=== PATIENT | female | born 1950 | race Caucasian/White ===

== ENCOUNTER → 2021-08-25 13:19 | Outpatient (BNVA) | payer MEDICARE, MEDICAID, SELFPAY | PROVIDERS: PCP Internal Medicine Nephrology; Visit Provider Nurse Practitioner Family | DX: M25.511 Pain in right shoulder (principal); M25.512 Pain in left shoulder; M47.812 Spondylosis without myelopathy or radiculopathy, cervical region; M17.12 Unilateral primary osteoarthritis, left knee | CPT/HCPCS: 99202 ==

== ENCOUNTER → 2021-10-13 15:29 | Outpatient (BNVA) | payer MEDICARE, MEDICAID, SELFPAY | PROVIDERS: PCP Internal Medicine Nephrology; Visit Provider Nurse Practitioner Family | DX: M17.12 Unilateral primary osteoarthritis, left knee (principal); M25.511 Pain in right shoulder; M25.512 Pain in left shoulder; M47.812 Spondylosis without myelopathy or radiculopathy, cervical region | CPT/HCPCS: Q3014 ==

== ENCOUNTER 2022-01-19 06:27 | Outpatient (REF) | payer MEDICARE, MEDICAID, SELFPAY | END 2022-01-19 06:28 | disposition home or self-care (01) | LOC: HO.RADIR 06:27 | PROVIDERS: Visit Provider Anesthesiology | DX: Z13.89 Encounter for screening for other disorder (principal) ==

== ENCOUNTER 2022-03-30 06:23 | Outpatient (REF) | payer MEDICARE, MEDICAID, SELFPAY | END 2022-03-30 06:24 | disposition home or self-care (01) | LOC: HO.RADIR 06:23 | PROVIDERS: Visit Provider Anesthesiology | DX: Z13.89 Encounter for screening for other disorder (principal) | CPT/HCPCS: J3300 ==

== ENCOUNTER 2023-05-24 08:51 | Outpatient (RCR) | payer MEDICARE, MEDICAID, SELFPAY | END 2023-06-01 14:33 | disposition home or self-care (01) | LOC: HO.WCC 08:51 | PROVIDERS: PCP Internal Medicine; Visit Provider Physician Assistant | DX: S30.0XXD Contusion of lower back and pelvis, subsequent encounter (principal); S32.001D Stable burst fracture of unspecified lumbar vertebra, subsequent encounter for fracture with routine healing; E10.22 Type 1 diabetes mellitus with diabetic chronic kidney disease; I12.0 Hypertensive chronic kidney disease with stage 5 chronic kidney disease or end stage renal disease; N18.6 End stage renal disease; I25.2 Old myocardial infarction; Z99.2 Dependence on renal dialysis; X58.XXXD Exposure to other specified factors, subsequent encounter | CPT/HCPCS: 99213 ==

== ENCOUNTER 2023-12-01 13:55 | Outpatient (AMB) | payer MEDICARE, MEDICAID, SELFPAY ==
--- NOTE | 2023-12-01 14:27 | MHC.PC.OV ---
Intake Visit Reasons: [facility] Intake Note: New patient visit. Fell Tuesday and Tuesday of this week. Allergies bee venom protein (honey bee) Allergy (Severe, Verified 12/01/23 14:46) Anaphylaxis cephaloridine Allergy (Severe, Verified 12/01/23 14:46) dyspnea codeine Allergy (Severe, Verified 12/01/23 14:46) stops breathing Penicillins Allergy (Severe, Verified 12/01/23 14:46) dyspnea amlodipine [From Norvasc] Adverse Reaction (Severe, Verified 12/01/23 14:46) increased K+ hydrochlorothiazide Adverse Reaction (Severe, Verified 12/01/23 14:46) renal failure lisinopril Adverse Reaction (Severe, Verified 12/01/23 14:46) increased K+ polyethylene glycol Adverse Reaction (Severe, Verified 12/01/23 14:46) hives valsartan Adverse Reaction (Severe, Verified 12/01/23 14:46) renal failure polyethylene glycol 3350 [From Golytely] Adverse Reaction (Intermediate, Verified 12/01/23 14:46) Vomiting potassium chloride [From Golytely] Adverse Reaction (Intermediate, Verified 12/01/23 14:46) Vomiting sodium [From Golytely] Adverse Reaction (Intermediate, Verified 12/01/23 14:46) Vomiting sodium bicarbonate [From Golytely] Adverse Reaction (Intermediate, Verified 12/01/23 14:46) Vomiting sodium chloride [From Golytely] Adverse Reaction (Intermediate, Verified 12/01/23 14:46) Vomiting sodium sulfate [From Golytely] Adverse Reaction (Intermediate, Verified 12/01/23 14:46) Vomiting Sulfa (Sulfonamide Antibiotics) Adverse Reaction (Intermediate, Verified 12/01/23 14:46) n/v Medication List - Last Reconciled 12/01/23 by Carlee Turner MD allopurinol 100 mg PO DAILY 90 days apixaban (Eliquis) 5 mg PO BID atorvastatin 80 mg PO DAILY 90 days biotin mcg PO calcium acetate(phosphat bind) 667 mg PO TID ferric citrate 420 mg (2 x 210 mg iron) PO TID 30 days insulin glargine (Basaglar KwikPen U-100 Insulin) 25 units subcut BEDTIME levothyroxine 137 mcg PO DAILY 90 days linaclotide (Linzess) 145 mcg PO DAILY losartan 100 mg PO DAILY melatonin 15 mg PO metoprolol tartrate 25 mg PO DAILY multivitamin 1 tab PO DAILY nystatin (Nystop) topical oxycodone-acetaminophen 10-325 mg (Endocet) 1 tab PO Q4H PRN pen needle, diabetic (BD Ultra-Fine Mini Pen Needle) As directed pramipexole 0.25 mg PO TID 90 days pregabalin 25 mg PO TID torsemide mg PO Tobacco use date assessed: 12/01/23 Fall risk assessment: 2 + Falls in past year Last assessed Fall Risk: 12/01/23 Dental Screening Dental Screen Date: 12/01/23 Did you have a dental visit in the last 12 months?: Yes Did you have a dental problem in the last 6 months where you did not have access to dental care?: No Was dental information given to patient?: Patient has dentist HPI HPI Comments History of Present Illness Details The patient is a 73 year old female with past medical history of htn, hld, diabetes, hypothyroid, osteoarthritis, migraines, CKD on HD, uterine cancer, sinusitis presenting to reestablish care Diabetes: On basaglar 30-60 units at 10pm, novalag TID sliding scale. Neuropathy on lyrica 25mg TID, endocet Renal: ESRD on HD at [facility] MWF: on sevelamer, calcium acetate. Follows with Dr Millard CV: Follow with cardiology, Dr Rogers. On eliquis, atorvastatin, losartan, as well as nifedipine and torsemide on NON dialysis days. Neuro: Migraines, peripheral neuropathy, ataxia MSK: Chronic polyarthralgia. osteoarthritis. On endocet 10/325mg 1 tab q4h. Endocrine: on levothyroxine 137mcg daily [facility] Social History (Updated 12/01/23 @ 14:30 by France Mccall CMA) Housing: House Patient Tobacco Use Status: Never used Tobacco e-Cigarette/Vaping Use: Never Used Second Hand Smoke Exposure: No Use of substances other than those prescribed or required for medical reasons: Yes Substance Use Type: Marijuana service: No Current occupational status: retired Cognitive needs: No Hearing needs: No Vision needs: Yes (glasses ) Questionnaire PHQ-9 Over the last 2 weeks, how often have you been bothered by any of the following problems? 1. Little interest or pleasure in doing things: not at all 2. Feeling down, depressed, or hopeless: not at all 3. Trouble falling or staying asleep, or sleeping too much: nearly every day 4. Feeling tired or having little energy: more than half the days 5. Poor appetite or overeating: more than half the days 6. Feeling bad about yourself - or that you are a failure or have let yourself or your family down: not at all 7. Trouble concentrating on things, such as reading the newspaper or watching television: not at all 8. Moving or speaking so slowly that other people could have noticed. Or the opposite - being so fidgety or restless that you have been moving around a lot more than usual: not at all 9. Thoughts that you would be better off or of hurting yourself in some way: not at all Total score: 7 Depression Screening Interpretation: Positive Depression Screening Done: Yes 32176 - PHQ-9 Billing: Yes Source: Developed by Drs. Eagle Neil, Leticia Vásquez, Kwadwo Garcia and colleagues, with an educational antonietta from [employer]. Thrive Questionnaire Date Thrive assessed: 12/01/23 I am a: Patient What is your living situation today?: I have a steady place to live Within the past 12 months, did the food you bought not last and you didn't have the money to get more?: Never true Within the past 12 months, did you worry whether your food would run out before you got money to buy more?: Never true Do you have trouble paying for medicines?: No Do you have trouble getting transportation to medical appointments?: No Do you have trouble paying your heating and electricity bill?: No Do you have trouble taking care of your child, family member or friend?: No Do you have trouble with day-to-day activities such as bathing, preparing meals, shopping, managing finances, etc.?: No Are you currently unemployed and looking for a job?: No Are you interested in more education?: No Please select the resources that you would like help with: None Currently or been in a relationship where the following occur: no concerns reported THRIVE Score: 0 AUDIT C Alcohol Use Questionnaire (AUDIT-C) 1. How often do you have a drink containing alcohol?: Never 3. How often do you have six or more drinks on one occasion?: Never Total Score: 0 EDIN-7 AMB Questionnaire EDIN-7 Date EDIN - 7 assessed: 12/01/23 Feeling nervous, anxious, or on edge: 0 = Not at all Not being able to stop or control worryin = Not at all Worrying too much about different things: 0 = Not at all Trouble relaxin = More than half the days Being so restless that it is hard to sit still: 0 = Not at all Becoming easily annoyed or irritable: 0 = Not at all Feeling afraid as if something awful might happen: 0 = Not at all Total EDIN-7 score (0-4 normal; 5-9 mild; 10-14 moderate; 15-21 severe): 2 Source: Developed by Drs. Eagle Neil, Leticia Vásquez, Kwadwo Garcia and colleagues, with an educational antonietta from [employer]. EDIN-7 Assessment Billing EDIN-7 Assessment Tool: EDIN-7 Assessment 37493 Review of Systems Const Details: see HPI Physical exam (Primary Care) Tobacco/Smoking Status: Tobacco use Status Tobacco use date assessed 12/01/23 12/01/23 14:36 Patient Tobacco Use Status Never used Tobacco 12/01/23 14:36 e-Cigarette/Vaping Use Never Used 12/01/23 14:36 PHYSICAL EXAM: GENERAL: Alert and oriented x 3. NAD EYES: EOMI. Anicteric. HENT: Moist mucous membranes. No scleral icterus. No cervical lymphadenopathy. LUNGS: Clear to auscultation bilaterally. CARDIOVASCULAR: Regular rate and rhythm. No murmur. No JVD. ABDOMEN: Soft, non-tender +bs EXTREMITIES: No edema. Non-tender. SKIN: No rashes or lesions. Warm. NEUROLOGIC: No focal neurological deficits. CN II-XII grossly intact PSYCHIATRIC: Cooperative. Appropriate mood and affect PHQ-9: PHQ-9 Score PHQ-9: Total score 7 12/01/23 16:31 Depression Screening Interpretation: Positive Thrive Assessment: Date of Thrive Assessment Date Thrive assessed 12/01/23 12/01/23 14:36 Currently or been in a relationship where the following occur: no concerns reported Assessment and Plan Assessment & Plan (1) Hearing aid worn: Code(s): Z97.4 - Presence of external hearing-aid (2) Type 2 diabetes mellitus: Code(s): E11.9 - Type 2 diabetes mellitus without complications Qualifiers: Diabetes mellitus supervisor intermediates insulin use: with supervisor intermediates use Diabetes mellitus complication status: with kidney complications Diabetes mellitus complication detail: with chronic kidney disease Chronic kidney disease stage: on chronic dialysis Qualified Code(s): E11.22 - Type 2 diabetes mellitus with diabetic chronic kidney disease; N18.6 - End stage renal disease; Z79.4 - supervisor intermediates (current) use of insulin; Z99.2 - Dependence on renal dialysis (3) Insulin dependent diabetes mellitus type IA: Code(s): E10.9 - Type 1 diabetes mellitus without complications (4) Hemodialysis status: Code(s): Z99.2 - Dependence on renal dialysis (5) Hypertension: Code(s): I10 - Essential (primary) hypertension (6) Hyperlipidemia: Code(s): E78.5 - Hyperlipidemia, unspecified (7) Type 2 diabetes mellitus: Code(s): E11.9 - Type 2 diabetes mellitus without complications (8) Hyperlipidemia: Code(s): E78.5 - Hyperlipidemia, unspecified (9) Hypothyroid: Code(s): E03.9 - Hypothyroidism, unspecified Orders: Orders TSH reflex Free T4 12/01/23 E03.9 - Hypothyroidism, unspecified, E11.9 - Type 2 diabetes mellitus without complications, E78.5 - Hyperlipidemia, unspecified Lipid Panel 12/01/23 E03.9 - Hypothyroidism, unspecified, E11.9 - Type 2 diabetes mellitus without complications, E78.5 - Hyperlipidemia, unspecified Referrals Speech and Hearing Referral Z97.4 - Presence of external hearing-aid, Z99.2 - Dependence on renal dialysis Medications: New ferric citrate administer with a meal 420 mg (2 x 210 mg iron) PO TID 30 days 180 tabs 0RF Changed From allopurinol 100 mg PO DAILY To allopurinol 100 mg PO DAILY 90 days 90 tabs 3RF From pramipexole 0.25 mg PO BEDTIME To pramipexole 0.25 mg PO TID 90 days 270 tabs 3RF From levothyroxine 137 mcg PO DAILY To levothyroxine 137 mcg PO DAILY 90 days 90 tabs 3RF From atorvastatin 80 mg PO DAILY To atorvastatin 80 mg PO DAILY 90 days 90 tabs 3RF Coding Level of Care Code Est Pt Level 5 (60450) Complex EM visit Add On G2211 Diagnoses Hearing aid worn Z97.4 Type 2 diabetes mellitus with chronic kidney disease on chronic dialysis, with long-term current use of insulin E11.22; N18.6; Z79.4; Z99.2 Diabetes mellitus supervisor intermediates insulin use: with supervisor intermediates use Diabetes mellitus complication status: with kidney complications Diabetes mellitus complication detail: with chronic kidney disease Chronic kidney disease stage: on chronic dialysis Insulin dependent diabetes mellitus type IA E10.9 Hemodialysis status Z99.2 Hypertension I10 Hyperlipidemia E78.5 Hypothyroid E03.9 Additional Codes EDIN-7 Assessment Billing - EDIN-7 Assessment Tool: EDIN-7 Assessment [id number] ([id number])
== END 2023-12-01 15:23 | disposition home or self-care (01) ==
PROVIDERS: PCP Internal Medicine; Visit Provider Internal Medicine
DX: I12.0 Hypertensive chronic kidney disease with stage 5 chronic kidney disease or end stage renal disease (principal); E11.22 Type 2 diabetes mellitus with diabetic chronic kidney disease; N18.6 End stage renal disease; Z79.4 Long term (current) use of insulin; Z99.2 Dependence on renal dialysis; Z97.4 Presence of external hearing-aid; E78.5 Hyperlipidemia, unspecified; E03.9 Hypothyroidism, unspecified
CPT/HCPCS: 99215; G2211

== ENCOUNTER 2024-01-31 08:35 | Outpatient (REF) | payer MEDICARE, MEDICAID, SELFPAY | END 2024-01-31 08:36 | disposition home or self-care (01) | LOC: HO.SH 08:35 | PROVIDERS: Visit Provider Internal Medicine | DX: Z01.118 Encounter for examination of ears and hearing with other abnormal findings (principal); H61.21 Impacted cerumen, right ear | CPT/HCPCS: 92567 ==

== ENCOUNTER 2024-02-09 09:09 | Outpatient (REF) | payer MEDICARE, MEDICAID, SELFPAY ==
--- NOTE | 2024-02-09 10:51 | MHC.AU.HA3 ---
Hearing Instrument Follow-Up- Binaural Date of Visit: 02/09/24 Right Ear: Model Jerome, Color, Serial Number: Ninfa MA [id number], [id number] Rn Imaging Repair Warranty: 10/13/24 Rn Imaging Loss and Damage Warranty: 10/13/24 [facility] Service Plan: N/A Battery Size: Rechargeable Wet Trimmer/Slim Tube: 50g Earmold/Dome/CShell/SlimTip:5mm Type of Wax Guard: hearclear Dispensed By: [employer] Date of Fitting: unknown, manfacturers sell date 06/2021 Left Ear: Jerome, , Color, Serial Number: Ninfa Pineda 1600 AI, [id number] Rn Imaging Repair Warranty: 10/13/24 Rn Imaging Loss and Damage Warranty: 10/13/24 [facility] Service Plan: N/A Battery Size: Rechargeable Wet Trimmer/Slim Tube: 50g Earmold/Dome/CShell/SlimTip: 5mm Type of Wax Guard: hearclear Dispensed By: [employer] Date of Fitting: unknown, manfacturers sell date 06/2021 Follow-Up Summary: Kathleen is here for evaluation, brought her Ninfa MA [facility], states they were covered by [employer]. Notes they are not working well. Cleaned aids, significant debris removed from harshal covers. Listening check improved after cleaning. Hooked up to Inspire, aids underfit. Reprogrammed to current thresholds. Kathleen reported she was hearing much better. Paired with phone, she will download anthony at home when she has her apple password. Return if issues arise with new settings, or prior to warranty expiration in September. Recommendations: Recommendations: Hearing instrument follow-up or maintenance as needed. Diagnosis Code(s): Primary Diagnosis: H90.3 Bilateral Sensorineural Hearing Loss Signature: Student/Clinical Fellow: I have reviewed/agreed with student/fellow documentation: Provider: Dustin Jean, [facility]
== END 2024-02-09 09:10 | disposition home or self-care (01) ==
LOC: HO.SH 09:09
PROVIDERS: Visit Provider Internal Medicine
DX: Z01.118 Encounter for examination of ears and hearing with other abnormal findings (principal); H90.3 Sensorineural hearing loss, bilateral
CPT/HCPCS: 92557; 92567; 92593; 99499

== ENCOUNTER 2024-06-18 11:17 | Outpatient (REF) | payer SELFPAY | END 2024-06-18 11:18 | disposition home or self-care (01) | LOC: HO.HAP 11:17 | PROVIDERS: Visit Provider Internal Medicine | DX: Z46.1 Encounter for fitting and adjustment of hearing aid (principal) | CPT/HCPCS: V5267 ==

== ENCOUNTER 2024-06-26 13:32 | Outpatient (AMB) | payer MEDICARE, MEDICAID, SELFPAY ==
--- NOTE | 2024-06-26 14:05 | MHC.PC.OV ---
Vital Signs 06/26/24 14:11 06/26/24 14:30 BMI Reason not done Patient refused/unable BP 168/64 H 148/76 H Blood Pressure Location Lt brachial Lt brachial Position Sitting Sitting Pulse 69 Pulse Source Pulse Oximeter Pulse Oximetry (%) 100 Oxygen Delivery Method Room Air Intake Visit Reasons: discuss pain medication Intake Note: Discuss medication for pain for osteoarthritis. Was getting it through [facility], but they will no longer send it and wants pcp to take over. Mine Motor Engineer Required: No Allergies bee venom protein (honey bee) Allergy (Severe, Verified 06/26/24 14:07) Anaphylaxis cephaloridine Allergy (Severe, Verified 06/26/24 14:07) dyspnea codeine Allergy (Severe, Verified 06/26/24 14:07) stops breathing Penicillins Allergy (Severe, Verified 06/26/24 14:07) dyspnea amlodipine [From Norvasc] Adverse Reaction (Severe, Verified 06/26/24 14:07) increased K+ hydrochlorothiazide Adverse Reaction (Severe, Verified 06/26/24 14:07) renal failure lisinopril Adverse Reaction (Severe, Verified 06/26/24 14:07) increased K+ polyethylene glycol Adverse Reaction (Severe, Verified 06/26/24 14:07) hives valsartan Adverse Reaction (Severe, Verified 06/26/24 14:07) renal failure polyethylene glycol 3350 [From Golytely] Adverse Reaction (Intermediate, Verified 06/26/24 14:07) Vomiting potassium chloride [From Golytely] Adverse Reaction (Intermediate, Verified 06/26/24 14:07) Vomiting sodium [From Golytely] Adverse Reaction (Intermediate, Verified 06/26/24 14:07) Vomiting sodium bicarbonate [From Golytely] Adverse Reaction (Intermediate, Verified 06/26/24 14:07) Vomiting sodium chloride [From Golytely] Adverse Reaction (Intermediate, Verified 06/26/24 14:07) Vomiting sodium sulfate [From Golytely] Adverse Reaction (Intermediate, Verified 06/26/24 14:07) Vomiting Sulfa (Sulfonamide Antibiotics) Adverse Reaction (Intermediate, Verified 06/26/24 14:07) n/v Tobacco use date assessed: 12/01/23 Dental Screening Dental Screen Date: 12/01/23 HPI HPI Comments History of Present Illness Details The patient is a 74 year old female with past medical history of htn, hld, diabetes, hypothyroid, osteoarthritis, migraines, CKD on HD, uterine cancer, sinusitis presenting for follow up She recently was advised that 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 There was no taper sent per patient. She has now been a few days without medication and has been suffering from both severe pain and withdrawal symptoms. Anxiety, loose stools, sweating, sleeplessness. Diabetes: On basaglar 30-60 units at 10pm, novalag TID sliding scale. Neuropathy on lyrica 25mg TID, endocet Renal: ESRD on HD at [facility] MWF: on sevelamer, calcium acetate. Follows with Dr Millard CV: Follow with cardiology, Dr Rogers. On eliquis, atorvastatin, losartan, as well as nifedipine and torsemide on NON dialysis days. Neuro: Migraines, peripheral neuropathy, ataxia MSK: Chronic polyarthralgia. osteoarthritis. On endocet 10/325mg 1 tab q4h. Endocrine: on levothyroxine 137mcg daily ROS see HPI PHYSICAL EXAM: GENERAL: Alert and oriented x 3. NAD EYES: EOMI. Anicteric. HENT: Moist mucous membranes. No scleral icterus. No cervical lymphadenopathy. LUNGS: Clear to auscultation bilaterally. CARDIOVASCULAR: Regular rate and rhythm. No murmur. No JVD. ABDOMEN: Soft, non-tender +bs EXTREMITIES: No edema. Non-tender. SKIN: No rashes or lesions. Warm. NEUROLOGIC: No focal neurological deficits. CN II-XII grossly intact PSYCHIATRIC: Cooperative. Appropriate mood and affect [facility] Social History Housing: House Patient Tobacco Use Status: Never used Tobacco e-Cigarette/Vaping Use: Never Used Second Hand Smoke Exposure: No Substance Use Type: Marijuana service: No Current occupational status: retired Cognitive needs: No Hearing needs: No Vision needs: Yes (glasses ) Questionnaire PHQ-9 Over the last 2 weeks, how often have you been bothered by any of the following problems? 1. Little interest or pleasure in doing things: more than half the days 2. Feeling down, depressed, or hopeless: not at all 3. Trouble falling or staying asleep, or sleeping too much: nearly every day 4. Feeling tired or having little energy: nearly every day 5. Poor appetite or overeating: nearly every day 6. Feeling bad about yourself - or that you are a failure or have let yourself or your family down: not at all 7. Trouble concentrating on things, such as reading the newspaper or watching television: not at all 8. Moving or speaking so slowly that other people could have noticed. Or the opposite - being so fidgety or restless that you have been moving around a lot more than usual: not at all 9. Thoughts that you would be better off or of hurting yourself in some way: not at all Total score: 11 Depression Screening Interpretation: Positive Depression Screening Follow-up: Community Mental Health Worker F/U Depression Screening Done: Yes 42240 - PHQ-9 Billing: Yes Source: Developed by Drs. Eagle Neil, Leticia Vásquez, Kwadwo Garcia and colleagues, with an educational antonietta from [employer]. Thrive Questionnaire Date Thrive assessed: 12/01/23 I am a: Patient What is your living situation today?: I have a steady place to live Within the past 12 months, did the food you bought not last and you didn't have the money to get more?: Never true Within the past 12 months, did you worry whether your food would run out before you got money to buy more?: Never true Do you have trouble paying for medicines?: No Do you have trouble getting transportation to medical appointments?: No Do you have trouble paying your heating and electricity bill?: No Do you have trouble taking care of your child, family member or friend?: No Do you have trouble with day-to-day activities such as bathing, preparing meals, shopping, managing finances, etc.?: Yes Are you currently unemployed and looking for a job?: No Are you interested in more education?: No Please select the resources that you would like help with: None Currently or been in a relationship where the following occur: No concerns reported THRIVE Score: 0 EDIN-7 AMB Questionnaire EDIN-7 Date EDIN - 7 assessed: 12/01/23 Source: Developed by Drs. Eagle Neil, Leticia Vásquez, Kwadwo Garcia and colleagues, with an educational antonietta from [employer]. Physical exam (Primary Care) Vital Signs: Last Vital Signs Pulse 69 06/26/24 14:11 BP 148/76 H 06/26/24 14:30 Pulse Ox 100 06/26/24 14:11 Oxygen Delivery Method Room Air 06/26/24 14:11 Tobacco/Smoking Status: Tobacco use Status Tobacco use date assessed 12/01/23 06/26/24 14:07 Patient Tobacco Use Status Never used Tobacco 06/26/24 14:07 e-Cigarette/Vaping Use Never Used 06/26/24 14:07 PHQ-9: PHQ-9 Score PHQ-9: Total score 11 07/02/24 00:22 Depression Screening Interpretation: Positive Depression Screening Follow-up: Community Mental Health Worker F/U Thrive Assessment: Date of Thrive Assessment Date Thrive assessed 12/01/23 06/26/24 14:07 Currently or been in a relationship where the following occur: No concerns reported Coding Level of Care Code Est Pt Level 4 (94546) Diagnoses Primary osteoarthritis involving multiple joints M15.0 Osteoarthritis location: multiple joints Osteoarthritis type: primary Hemodialysis status Z99.2 Type 2 diabetes mellitus with chronic kidney disease on chronic dialysis, with long-term current use of insulin E11.22; N18.6; Z79.4; Z99.2 Chronic kidney disease stage: on chronic dialysis Diabetes mellitus complication detail: with chronic kidney disease Diabetes mellitus complication status: with kidney complications Diabetes mellitus superintendent container terminal insulin use: with mcc use Additional Codes PHQ-9 - 55428 - PHQ-9 Billing: Yes ([id number]) Assessment & Plan Assessment & Plan (1) Osteoarthritis: Code(s): M19.90 - Unspecified osteoarthritis, unspecified site Category: Medical Qualifiers: Osteoarthritis location: multiple joints Osteoarthritis type: primary Qualified Code(s): M15.0 - Primary generalized (osteo)arthritis Plan: Pain has failed/exhausted non opioid pain control Prescription for endocet sent (2) Hemodialysis status: Code(s): Z99.2 - Dependence on renal dialysis Category: Medical Plan: Continue HD as scheduled. Continue nephrology follow up (3) Type 2 diabetes mellitus: Code(s): E11.9 - Type 2 diabetes mellitus without complications Category: Medical Qualifiers: Chronic kidney disease stage: on chronic dialysis Diabetes mellitus complication detail: with chronic kidney disease Diabetes mellitus complication status: with kidney complications Diabetes mellitus superintendent container terminal insulin use: with superintendent container terminal use Qualified Code(s): E11.22 - Type 2 diabetes mellitus with diabetic chronic kidney disease; N18.6 - End stage renal disease; Z79.4 - superintendent container terminal (current) use of insulin; Z99.2 - Dependence on renal dialysis Plan: controlled on current medication Medications: Changed From oxycodone-acetaminophen 10-325 mg 1 tab PO Q4H PRN 0RF moderate pain To oxycodone-acetaminophen 10-325 mg (Endocet) 1 tab PO Q4H PRN 180 tabs 0RF moderate pain 30 days
[2024-06-26 14:11] VITALS: BP 168/64; PULSE 69; O2SAT 100
[2024-06-26 14:30] VITALS: BP 148/76
== END 2024-06-26 16:06 | disposition home or self-care (01) ==
PROVIDERS: PCP Internal Medicine; Visit Provider Internal Medicine
DX: E11.22 Type 2 diabetes mellitus with diabetic chronic kidney disease (principal); Z99.2 Dependence on renal dialysis; N18.6 End stage renal disease; Z79.4 Long term (current) use of insulin; M15.0 Primary generalized (osteo)arthritis

== ENCOUNTER → 2024-06-26 13:32 | Outpatient (BNVA) | payer MEDICARE, MEDICAID, SELFPAY | PROVIDERS: PCP Internal Medicine; Visit Provider Internal Medicine | DX: M15.0 Primary generalized (osteo)arthritis (principal); E11.22 Type 2 diabetes mellitus with diabetic chronic kidney disease; N18.6 End stage renal disease; Z99.2 Dependence on renal dialysis | CPT/HCPCS: 96127; 99212 ==

== ENCOUNTER 2024-10-30 15:39 | Outpatient (AMB) | payer MEDICARE, MEDICAID, SELFPAY ==
--- NOTE | 2024-10-30 15:58 | A.OFFPC_ITS ---
Vital Signs 10/30/24 16:00 10/30/24 16:07 BMI Reason not done Patient refused/unable BP 142/54 H 128/52 L Blood Pressure Location Lt brachial Lt brachial Position Sitting Sitting Respiration 16 Pulse 61 Pulse Source Pulse Oximeter Pulse Oximetry (%) 95 Oxygen Delivery Method Room Air Intake Visit Reasons: Med Management Intake Note: Medication follow up Software Engineering Specialist Required: No Allergies bee venom protein (honey bee) Allergy (Severe, Verified 10/30/24 15:58) Anaphylaxis cephaloridine Allergy (Severe, Verified 10/30/24 15:58) dyspnea codeine Allergy (Severe, Verified 10/30/24 15:58) stops breathing Penicillins Allergy (Severe, Verified 10/30/24 15:58) dyspnea amlodipine [From Norvasc] Adverse Reaction (Severe, Verified 10/30/24 15:58) increased K+ hydrochlorothiazide Adverse Reaction (Severe, Verified 10/30/24 15:58) renal failure lisinopril Adverse Reaction (Severe, Verified 10/30/24 15:58) increased K+ polyethylene glycol Adverse Reaction (Severe, Verified 10/30/24 15:58) hives valsartan Adverse Reaction (Severe, Verified 10/30/24 15:58) renal failure polyethylene glycol 3350 [From Golytely] Adverse Reaction (Intermediate, Verified 10/30/24 15:58) Vomiting potassium chloride [From Golytely] Adverse Reaction (Intermediate, Verified 10/30/24 15:58) Vomiting sodium [From Golytely] Adverse Reaction (Intermediate, Verified 10/30/24 15:58) Vomiting sodium bicarbonate [From Golytely] Adverse Reaction (Intermediate, Verified 10/30/24 15:58) Vomiting sodium chloride [From Golytely] Adverse Reaction (Intermediate, Verified 10/30/24 15:58) Vomiting sodium sulfate [From Golytely] Adverse Reaction (Intermediate, Verified 10/30/24 15:58) Vomiting Sulfa (Sulfonamide Antibiotics) Adverse Reaction (Intermediate, Verified 10/30/24 15:58) n/v Medication List - Last Reconciled 10/31/24 by Carlee Turner MD allopurinol 100 mg PO DAILY 90 days apixaban (Eliquis) 5 mg PO BID atorvastatin 80 mg PO DAILY biotin mcg PO calcium acetate(phosphat bind) 667 mg PO TID doxycycline hyclate 100 mg PO BID ferric citrate 420 mg (2 x 210 mg iron) PO TID 30 days Fiasp Penfill U-100 Insulin 100 unit/mL (3 mL) (insulin aspart (niacinamide)) 1 sliding scale dose subcut USEASDIRECTD NS insulin aspart (niacinamide) 100 unit/mL (3 mL) (Fiasp FlexTouch U-100 Insulin) 1 sliding scale dose subcut USEASDIRECTD insulin aspart (niacinamide) 100 unit/mL (3 mL) (Fiasp FlexTouch U-100 Insulin) 1 sliding scale dose subcut USEASDIRECTD insulin degludec 25 units (0.25 mL) subcut BEDTIME insulin glargine (Basaglar KwikPen U-100 Insulin) 25 units (0.25 mL) subcut BEDT CARLIN insulin syr/ndl U100 half reina with short acting insulin levothyroxine 137 mcg PO DAILY linaclotide (Linzess) 145 mcg PO DAILY losartan 100 mg PO DAILY melatonin 15 mg PO metoprolol tartrate 25 mg PO DAILY multivitamin 1 tab PO DAILY nystatin (Nystop) 1 appl topical BID PRN oxycodone-acetaminophen 10-325 mg (Endocet) 1 tab PO Q4H PRN 30 days pen needle, diabetic (BD Ultra-Fine Mini Pen Needle) As directed pramipexole 0.25 mg PO TID 90 days pregabalin 25 mg PO TID torsemide 20 mg PO DAILY 90 days Tobacco use date assessed: 12/01/23 Fall risk assessment: 2 + Falls in past year (Does not know how many falls, has fallen a lot. ) Last assessed Fall Risk: 10/30/24 Dental Screening Dental Screen Date: 12/01/23 HPI HPI Comments History of Present Illness Details The patient is a 74 year old female with past medical history of htn, hld, diabetes, hypothyroid, osteoarthritis, migraines, CKD on HD, uterine cancer, sinusitis presenting for follow up Diabetes: On basaglar 25 units at 10pm, fiasp TID sliding scale. Neuropathy on lyrica 25mg TID, endocet Renal: ESRD on HD at [facility] MWF: on sevelamer, calcium acetate. Follows with Dr Millard CV: Follow with cardiology, Dr Rogers. On eliquis, atorvastatin, losartan, as well as nifedipine and torsemide on NON dialysis days. Neuro: Migraines, peripheral neuropathy, ataxia MSK: Chronic polyarthralgia. osteoarthritis. On endocet 10/325mg 1 tab q4h. She has tried PT injections, in the past. Considering right hip replacement. Known OA in b/l knees. She recently was advised that her clinic manager office was no longer going to be prescribing any pain medications. Endocrine: on levothyroxine 137mcg daily ROS see HPI PHYSICAL EXAM: GENERAL: Alert and oriented x 3. NAD EYES: EOMI. Anicteric. HENT: Moist mucous membranes. No scleral icterus. No cervical lymphadenopathy. LUNGS: Clear to auscultation bilaterally. CARDIOVASCULAR: Regular rate and rhythm. No murmur. No JVD. ABDOMEN: Soft, non-tender +bs EXTREMITIES: No edema. Non-tender. SKIN: No rashes or lesions. Warm. NEUROLOGIC: No focal neurological deficits. CN II-XII grossly intact PSYCHIATRIC: Cooperative. Appropriate mood and affect [facility] Social History Housing: House Patient Tobacco Use Status: Never used Tobacco e-Cigarette/Vaping Use: Never Used Second Hand Smoke Exposure: No Substance Use Type: Marijuana service: No Current occupational status: retired Cognitive needs: No Hearing needs: No Vision needs: Yes (glasses ) Questionnaire PHQ-9 Over the last 2 weeks, how often have you been bothered by any of the following problems? 1. Little interest or pleasure in doing things: not at all 2. Feeling down, depressed, or hopeless: not at all 3. Trouble falling or staying asleep, or sleeping too much: nearly every day 4. Feeling tired or having little energy: nearly every day 5. Poor appetite or overeating: more than half the days 6. Feeling bad about yourself - or that you are a failure or have let yourself or your family down: not at all 7. Trouble concentrating on things, such as reading the newspaper or watching television: nearly every day 8. Moving or speaking so slowly that other people could have noticed. Or the opposite - being so fidgety or restless that you have been moving around a lot more than usual: not at all 9. Thoughts that you would be better off or of hurting yourself in some way: not at all Total score: 11 Source: Developed by Drs. Eagle Neil, Leticia Vásquez, Kwdawo Garcia and colleagues, with an educational antonietta from [employer]. Thrive Questionnaire Date Thrive assessed: 09/22/24 I am a: Patient What is your living situation today?: I have a steady place to live Within the past 12 months, did the food you bought not last and you didn't have the money to get more?: Never true Within the past 12 months, did you worry whether your food would run out before you got money to buy more?: Never true Do you have trouble paying for medicines?: No Do you have trouble getting transportation to medical appointments?: No Do you have trouble paying your heating and electricity bill?: No Do you have trouble taking care of your child, family member or friend?: No Do you have trouble with day-to-day activities such as bathing, preparing meals, shopping, managing finances, etc.?: Yes Are you currently unemployed and looking for a job?: No Are you interested in more education?: No Please select the resources that you would like help with: None Currently or been in a relationship where the following occur: No concerns reported THRIVE Score: 0 EDIN-7 AMB Questionnaire EDIN-7 Date EDIN - 7 assessed: 12/01/23 Source: Developed by Drs. Eagle Neil, Leticia Vásquez, Kwadwo Garcia and colleagues, with an educational antonietta from [employer]. Physical exam (Primary Care) Vital Signs: Last Vital Signs Pulse 61 10/30/24 16:00 Resp 16 10/30/24 16:00 BP 128/52 L 10/30/24 16:07 Pulse Ox 95 10/30/24 16:00 Oxygen Delivery Method Room Air 10/30/24 16:00 Tobacco/Smoking Status: Tobacco use Status Tobacco use date assessed 12/01/23 10/30/24 15:59 Patient Tobacco Use Status Never used Tobacco 10/30/24 15:59 e-Cigarette/Vaping Use Never Used 10/30/24 15:59 PHQ-9: PHQ-9 Score PHQ-9: Total score 11 10/30/24 16:11 Thrive Assessment: Date of Thrive Assessment Date Thrive assessed 09/22/24 10/30/24 15:59 Currently or been in a relationship where the following occur: No concerns reported Coding Level of Care Code Est Pt Level 4 (72545) Diagnoses Primary osteoarthritis involving multiple joints M15.0 Osteoarthritis location: multiple joints Osteoarthritis type: primary Insulin dependent diabetes mellitus type IA E10.9 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.812 Assessment & Plan Assessment & Plan (1) Osteoarthritis: Code(s): M19.90 - Unspecified osteoarthritis, unspecified site Category: Medical Qualifiers: Osteoarthritis location: multiple joints Osteoarthritis type: primary Qualified Code(s): M15.0 - Primary generalized (osteo)arthritis (2) Insulin dependent diabetes mellitus type IA: Code(s): E10.9 - Type 1 diabetes mellitus without complications Category: Medical (3) Spondylosis of cervical region without myelopathy or radiculopathy: Code(s): M47.812 - Spondylosis without myelopathy or radiculopathy, cervical region Category: Medical Plan OA, DDD, neuropathy-managed with chronic opioid therapy. Failed previous measures to control pain associated with OA, DDD. CSA signed today Diabetes is well controlled on current medications ESRD-continue HD
[2024-10-30 16:00] VITALS: BP 142/54; PULSE 61; RESP 16; O2SAT 95
[2024-10-30 16:07] VITALS: BP 128/52
--- OUTSIDE RECORDS SUMMARY | 2024-10-30 18:35 | XMS_ITS | Encounter Summary ---
Author Organization [facility], Address [address] [place] [address] Phone Care Team Providers Care Eligibility Manager Name Role Phone Natty Sequeira NP Primary Care Provider [phone] Reason for Visit * Reason Comments Med Refill Encounter Details Date Type Department Care Team (Late st Contact Info) Description 01/15/2020 Refill [facility] [address] [place] [address] Frank Krishnamurthy MD [address] [place] [address] [place] [phone] Social History Tobacco Use Types Packs/Day Years Used Date Smoking Tobacco: Never Comments Unknown Sex and Gender Information Value Date Recorded Sex Assigned at Not on file Legal Sex Female 4:33 PM EST Gender Identity Not on file Sexual Orientation Not on file documented as of this encounter Plan of Treatment Upcoming Encounters Date Type Department Care Team (Late st Contact Info) Description 11/08/2024 11:00 AM EDT Procedure visit [facility] [address] [place] [address] [place] [phone] documented as of this encounter Visit Diagnoses Not on filedocumented in this encounter Care Teams Eligibility Manager Relationship Specialty Start Date End Date Natty Sequeira NP [address] [place] [address] PCP - General Nurse Practitioner 09/03/21 documented as of this encounter
--- OUTSIDE RECORDS SUMMARY | 2024-10-30 18:35 | XMS_ITS | Encounter Summary ---
Author Organization [facility], Address [address] [place] [address] Phone Care Team Providers Care Contingents Supervisor Name Role Phone Natty Sequeira NP Primary Care Provider [phone] Reason for Visit * Reason Comments Med Refill Encounter Details Date Type Department Care Team (Late st Contact Info) Description 08/09/2022 Refill [facility] [address] [place] [address] Eric Martínez MD [address] [facility] [place] [phone] Social History Tobacco Use Types Packs/Day Years Used Date Smoking Tobacco: Never Alcohol Use Standard Drinks/Week Comments No 0 (1 standard drink = 0.6 oz pur e alcohol) Comments Unknown Sex and Gender Information Value Date Recorded Sex Assigned at Not on file Legal Sex Female 4:33 PM EST Gender Identity Not on file Sexual Orientation Not on file documented as of this encounter Plan of Treatment Upcoming Encounters Date Type Department Care Team (Late st Contact Info) Description 11/08/2024 11:00 AM EDT Procedure visit [facility] [address] [facility] [place] [address] documented as of this encounter Visit Diagnoses Not on filedocumented in this encounter Care Teams Contingents Supervisor Relationship Specialty Start Date End Date Natty Sequeira NP [address] [place] [address] PCP - General Nurse Practitioner 09/03/21 documented as of this encounter
--- OUTSIDE RECORDS SUMMARY | 2024-10-30 18:35 | XMS_ITS | Encounter Summary ---
Author Organization [facility], Address [address] [place] [address] Phone Care Team Providers Care Service Bar Cashier Name Role Phone Natty Sequeira NP Primary Care Provider [phone] Reason for Visit * Reason Comments Med Refill Encounter Details Date Type Department Care Team (Late st Contact Info) Description 10/06/2019 Refill [facility] [address] [place] [address] Frank Krishnamurthy MD [address] [place] [address] [place] [phone] Social History Tobacco Use Types Packs/Day Years [...] visit [facility] [address] [place] [address] [place] [phone] documented as of this encounter Visit Diagnoses Not on filedocumented in this encounter Care Teams Service Bar Cashier Relationship Specialty Start Date End Date Natty Sequeira NP [address] [place] [address] PCP - General Nurse Practitioner 09/03/21 documented as of this encounter
--- OUTSIDE RECORDS SUMMARY | 2024-10-30 18:35 | XMS_ITS | Encounter Summary ---
Author Organization [facility], Address [address] [place] [address] Phone Care Team Providers Care Press Breaker Name Role Phone Natty Sequeira NP Primary Care Provider [phone] Reason for Visit * Reason Comments Med Refill Encounter Details Date Type Department Care Team (Late st Contact Info) Description 12/30/2020 Refill [facility] [address] [place] [address] Frank Krishnamurthy MD [address] [facility] [place] [phone] Social History Tobacco Use Types Packs/Day Years [...] visit [facility] [address] [facility] [place] [address] documented as of this encounter Visit Diagnoses Not on filedocumented in this encounter Care Teams Press Breaker Relationship Specialty Start Date End Date Natty Sequeira NP [address] [place] [address] PCP - General Nurse Practitioner 09/03/21 documented as of this encounter
--- OUTSIDE RECORDS SUMMARY | 2024-10-30 18:35 | XMS_ITS | Encounter Summary ---
Author Organization [facility], Address [address] [place] [address] Phone Care Team Providers Care Departure Clerk Name Role Phone Natty Sequeira NP Primary Care Provider [phone] Reason for Visit * Reason Comments Med Refill Encounter Details Date Type Department Care Team (Late st Contact Info) Description 12/26/2020 Refill [facility] [address] [place] [address] Frank Krishnamurthy MD [address] [facility] [place] [phone] Social History Tobacco Use Types Packs/Day Years [...] visit [facility] [address] [facility] [place] [address] documented as of this encounter Visit Diagnoses Not on filedocumented in this encounter Care Teams Departure Clerk Relationship Specialty Start Date End Date Natty Sequeira NP [address] [place] [address] PCP - General Nurse Practitioner 09/03/21 documented as of this encounter
--- OUTSIDE RECORDS SUMMARY | 2024-10-30 18:35 | XMS_ITS | Encounter Summary ---
Author Organization [facility], Address [address] [place] [address] Phone Care Team Providers Care Brickmason Supervisor Name Role Phone Natty Sequeira NP Primary Care Provider [phone] Reason for Visit * Reason Comments Med Refill Encounter Details Date Type Department Care Team (Late st Contact Info) Description 12/01/2020 Refill [facility] [address] [place] [address] Frank Krishnamurthy MD [address] [facility] [place] [phone] Social History Tobacco Use Types Packs/Day Years [...] visit [facility] [address] [facility] [place] [address] documented as of this encounter Visit Diagnoses Not on filedocumented in this encounter Care Teams Brickmason Supervisor Relationship Specialty Start Date End Date Natty Sequeira NP [address] [place] [address] PCP - General Nurse Practitioner 09/03/21 documented as of this encounter
--- OUTSIDE RECORDS SUMMARY | 2024-10-30 18:35 | XMS_ITS | Encounter Summary ---
Author Organization [facility], Address [address] [place] [address] Phone Care Team Providers Care Hand Lens Polisher Name Role Phone Natty Sequeira NP Primary Care Provider [phone] Reason for Visit * Reason Comments Med Refill Encounter Details Date Type Department Care Team (Late st Contact Info) Description 12/01/2020 Refill [facility] [address] [place] [address] Frank Krishnamurthy MD [address] [facility] [place] [phone] Social History Tobacco Use Types Packs/Day Years [...] visit [facility] [address] [facility] [place] [address] documented as of this encounter Visit Diagnoses Not on filedocumented in this encounter Care Teams Hand Lens Polisher Relationship Specialty Start Date End Date Natty Sequeira NP [address] [place] [address] PCP - General Nurse Practitioner 09/03/21 documented as of this encounter
--- OUTSIDE RECORDS SUMMARY | 2024-10-30 18:36 | XMS_ITS | Encounter Summary ---
Author Organization [facility] Address [address] [place] [address] Phone Care Team Providers Care Legal Records Manager Name Role Phone Natty Sequeira NP Primary Care Provider [phone] Encounter Details Date Type Department Care Team (Late st Contact Info) Description 09/02/2021 Documentation Only [facility] [address] [facility] [place] [phone] Clair Rivera [address] [place] [address] Social History Tobacco Use Types Packs/Day Years Used Date Smoking Tobacco: Never Alcohol Use Standard Drinks/Week Comments No 0 (1 standard drink = 0.6 oz pur e alcohol) Comments Unknown Sex and Gender Information Value Date Recorded Sex Assigned at Not on file Legal Sex Female 4:33 PM EST Gender Identity Not on file Sexual Orientation Not on file COVID-19 Exposure Response Date Recorded In the last month, have you been in contact with someone who was confirmed or suspected to have Coronavirus / COVID-19? No / Unsure 09/03/2021 10:25 AM EST documented as of this encounter Plan of Treatment Upcoming Encounters Date Type Department Care Team (Late st Contact Info) Description 11/08/2024 11:00 AM EDT Procedure visit [facility] [address] [place] [phone] documented as of this encounter Visit Diagnoses Not on filedocumented in this encounter Care Teams Legal Records Manager Relationship Specialty Start Date End Date Natty Sequeira NP [address] [place] [address] PCP - General Nurse Practitioner 09/03/21 documented as of this encounter
--- OUTSIDE RECORDS SUMMARY | 2024-10-30 18:36 | XMS_ITS | Encounter Summary ---
Author Organization [facility], Address [address] [place] [address] Phone Care Team Providers Care Jewelry Casting Model Maker Name Role Phone Natty Sequeira NP Primary Care Provider [phone] Reason for Visit * Reason Comments Med Refill Encounter Details Date Type Department Care Team ([facility] Contact Info) Description 10/30/2020 Refill [facility] [address] [place] [address] Frank Krishnamurthy MD [address] [place] [address] [place] [phone] Social History Tobacco Use Types Packs/Day Years [...] have Coronavirus / COVID-19? No / Unsure 10/10/2020 1:50 PM EDT documented as of this encounter Plan of Treatment Upcoming Encounters Date Type Department Care Team ([facility] Contact Info) Description 11/08/2024 11:00 AM EDT Procedure visit [facility] - [facility] Center [address] [place] [address] [place] [phone] documented as of this encounter Visit Diagnoses Not on filedocumented in this encounter Care Teams Jewelry Casting Model Maker Relationship Specialty Start Date End Date Natty Sequeira NP [address] [place] [address] PCP - General Nurse Practitioner 09/03/21 documented as of this encounter
--- OUTSIDE RECORDS SUMMARY | 2024-10-30 18:36 | XMS_ITS | Encounter Summary ---
Author Organization [facility], Address [address] [place] [address] Phone Care Team Providers Care Bufferer Name Role Phone Natty Sequeira NP Primary Care Provider [phone] Encounter Details Date Type Department Care Team (Late st Contact Info) Description 11/09/2023 Documentation Only [facility] [address] [place] [phone] [place] [address] [place] [address] Social History Tobacco Use Types Packs/Day [...] visit [facility] [address] [place] [phone] documented as of this encounter Visit Diagnoses Not on filedocumented in this encounter Care Teams Bufferer Relationship Specialty Start Date End Date Natty Sequeira NP [address] [place] [address] PCP - General Nurse Practitioner 09/03/21 documented as of this encounter
--- OUTSIDE RECORDS SUMMARY | 2024-10-30 18:36 | XMS_ITS | Data Portability ---
Author Organization [facility], [address] Address [address] [place] [address] Assessment No assessment recorded. Plan of Treatment Reminders Order Date Submit Date Provider Last Modified By Organization Details Last Modified Time Details Appointments None recorded. Lab rapid strep group A, throat 2023 024 [email or web address] [facility], [address] [place], [address], 13:37:21 Referral None recorded. Procedures None recorded. Surgeries None recorded. Imaging None recorded. Medication Orders cephalexin 500 mg capsule 2023 024 [email or web address] Not available 10:00:27 Patient TargetsNo targets recorded. Patient Instructions Encounter Date Encounter Id Patient Instructions Last Modified By Organization Details Last Modified Time 11/13/2023 [id number] strep throat: care instructions Not available 11/13/2023 13:37:13 specimen collection & handling* Not available 11/13/2023 13:37:14 Reason for Referral None Reported. Results Created Date Observation Date Name Description Value Unit Range Abnormal Flag Note LastModifiedBy Organization Detail LastModifiedTime 11/13/19 24 11/15/2023 BETA STREP GP A CULTU RE beta strep gp A culture COMMEN T Test( s) not perfo rmed. Testi ng of the speci men could not be compl eted due to a speci men ident ifica tion probl em. No patie nt ident ifica tion on conta iner. Refer ence Range : Negat breanne Not Available [facility] ([facility]) [address], [place], [address], 11/25/2023 12:06:26 11/13/19 24 11/15/2023 SPECI MEN IDENT IFICA TION STATU S specimen identificati on status TNP Comme nt: Test( s) not perfo rmed. Testi ng of the speci men could not be compl eted due to a speci men ident ifica tion probl em. No patie nt ident ifica tion on conta iner. TEST: [id number] Beta Strep Gp A Cultu re Not Available [facility] ([facility]) [address], [place], [address], 11/25/2023 12:06:26 11/13/19 24 11/13/2023 rapid strep group A, throa t Unknown Analyte negati ve Not Available [facility] [address], [address], 11/13/2023 13:05:51 11/13/19 24 11/13/2023 rapid strep group A, throa t Unknown Analyte negati ve Not Available [facility] ie [address], [address], 11/13/2023 13:05:51 11/13/19 24 11/13/2023 rapid strep group A, throa t Unknown Analyte yes Not Available [facility] [address], [address], 11/13/2023 13:05:51 Result Notes None recorded. Problems Name Problem SNOMED Code Status Onset Date Resolution Date Notes Provider Name and Address Organization Details Recorded Time Hypertensive disorder 54700817 Active 2023 [facility] 13:04:33 Diabetes mellitus 14739149 Active 2023 [facility] 13:04:38 Streptococcal sore throat 85753411 Active 2023 Boby Stokes, HEALTH CARE FACILITY ADMINISTRATOR [address] [place], [address] , [place] - [facility] 13:35:16 Problem Notes None recorded. Medical Equipment None Reported. Allergies Allergen ID Allergen Name Allergen Category Reaction Reaction Severity Criticality Documentation Date Start Date Code Code System Note Provider Name and Address Organization Details Recorded Time 688343 penicilli n G Not available hives Not available Not available 11/13/2023 7980 RxNorm [facility] 4 13:03:36 731036 codeine medicatio n Not available Not available Not available 11/13/2023 2670 RxNorm Pt stopp ed breat [facility] medic aton [facility] 4 13:03:55 Medications Name Sig Start Date Stop Date Status Note LastModified by Organization Details LastModified Time cephalexin 500 mg capsule Take 1 capsule twice a day by oral route with meal(s) for 10 days, for strep throat. 024 active Not Available Not Available Not Avai lable Vitals Date Recorded Body height Body mass index (BMI) Body weight Respiratory rate Heart rate Oxygen saturation Oxygen saturation in Arterial blood by Pulse oximetry Body temperature Systolic blood pressure Diastolic blood pressure Provider Name and Address Organization Details Last Updated DateTime 4 175.26 cm 33.2 kg/m2 243502. 28 g 17 /min 66 /min 99 % 99 % 97.8 [degF] 138 mm[Hg] 75 mm[Hg] Nanda Perez [facility] 4 13:07:49 Social History Question Answer Notes LastModified by Organizat ion Details LastModified Time Tobacco Smoking Status Never Smoker [facility] 11/13/2023 13:05:08 What Is Your Level Of Alcohol Consumption? None Information not available 11/13/2023 Have You Had A Flu Shot This Season? No Information not available 11/13/2023 If No, Would You Like A Flu Shot Today? No Information not available 11/13/2023 Have You Had Direct Contact, Or Contact During Intimacy, With Monkeypox Rash, Scabs, Or Body Fluids From A Person With Monkeypox? No Information not available 11/13/2023 What Was The Date Of Your Most Recent Tobacco Screening? 11/13/2023 Information not available 11/13/2023 Do You Use Any Illicit Or Recreational Drugs? No Information not available 11/13/2023 Have You Recently Traveled Abroad? No Information not available 11/13/2023 Sex: Unknown Functional Status None recorded. Mental Status None recorded. Family History Nothing Reported. Medical History No medical history recorded. Gynecological HistoryNo gynecological history recorded. Obstetrics History GPAL:G 0 P 0 0 0 0 Past Encounters Encounter ID Performer Location Encounter Start Date Encounter Closed Date Diagnosis/Indication Diagnosis SNOMED-CT Code Diagnosis ICD10 Code Diagnosis [place] [id number] [place] [address] [address] 11/13/2023 12:08:41 11/13/2023 13:58:33 Streptococcal sore throat 60113217 J02.0 Based on your Presentati on, Exam, and Lab Testing you are being diagnosed with Pharyngiti s. Your Rapid Strep Test was Negative. Most likely your sore throat is being caused by a virus, post nasal drip, or silent acid reflux. I am going to send a Throat Culture to the lab for you to make sure you don't have a different form of strep in your throat. This will take about 72 hours for that result to return. We will contact you if it positive - if for some reason you don't get a copy of your results or hear from us - please contact our office. I am going to prescribe you and antibiotic to cover this infection. Please be sure to complete the full course of this antibiotic to prevent antibiotic resistance . It is also important to complete this antibiotic because this infection is what causes Scarlet Fever/Rheu matic Heart Disease. Antibiotic s will typically take 4-5 days to start to work with symptom improvemen t. The following are my other recommenda tions to help with symptoms and is important for this diagnosis: 1. Do not share any food or drinks - strep is passed through direct saliva exchange (NOT IN THE AIR)2. Change your toothbrush in 3-4 days so that you don't re-infect yourself after you complete the antibiotic .3. Take Ibuprofen or Tylenol if you do not have any allergies to these medication s. If you take a blood thinner you should not take NSAIDS like Ibuprofen. These medication will help with the inflammati on in your respirator y tract which should help the cough. (I would alternate between Tylenol 650 mg and your Ibuprofen 600 mg every 4 hours)4. Do not take any Cold Medication s that have a Decongesta nt in it - this will dry out your throat and make the sore throat worse.5. Drinking Hot Tea with honey can help coat and soothe your throat.6. You would be considered contagious for the next 24-48 hours, or until fever resolves. I would be seen again if you develop any of the following symptoms.1 . Fever > 101.02. Stiff neck - where you can't turn your neck3. Trouble swallowing your saliva - drooling4. Swelling of a lymph node in your throat that is painful to touch5. Difficulty breathing6 . Severe Headache Thank you for using [facility] today, please feel free to contact our office if you have any questions or concerns. Health Concerns Section Related Observation LastModified by Organization Detai ls LastModified Time None Recorded Concern Status LastModified by Organization Details LastModified Time None Recorded Advance Directives Directive None Recorded Payers Encounter Date Sequence Insurance Name Policy Number Policy Abreu Covered Member ID Abreu Member ID Guarantor Name 11/13/2023 1 [place]: [employer] Kathleen Mendez [id number] Kathleen Mendez Notes Date Note Type Note Provider Name and Address Organization Details Recorded Time 4 text/html Sore throatReported bypatient.Source of patient informationInformation obtained from patient; Patient arrived at Urgent Care ambulatory; learning styles: auditory Location:throat Severity:mild Quality:sharp; burning Onset/Timin days Associated Symptoms:no sputum production; no shortness of breath; no wheezing; no vomiting; no nausea;sore throat;hoarseness;coughing; sinus pain/ congestion Context:no foreign travel; non-smoker;sick contact Modifying Factors:exposed to Strep non household Boby JOSE MARIA Stokes [address] [place], [address], [place] - [facility] 11/13/2023 15:42:45 OBGyn Episode No OBEpisode recorded.
--- OUTSIDE RECORDS SUMMARY | 2024-10-30 18:36 | XMS_ITS | Patient Health Record ---
Author Organization [facility] Address [address] [place] [address] Care Team Providers Care Generation Engineering Technologist Name Role Phone Ethel Martinez Primary Care Provider Andre James Jr Unavailable [phone] Reason For Referral No Information Plan Of Treatment No Information Insurance Providers Payer Name Payer Address Payer Phone Subscriber Number Group Number Insured Name Patient Relationship to Insured Coverage Start Date Coverage End Date [employer] (No Referra l) [address] [place], [place] [phone] [id number] DANUTA SEARS Self - patient is the insured
--- OUTSIDE RECORDS SUMMARY | 2024-10-30 18:36 | XMS_ITS | Clinical Summary ---
Author Organization [facility], Address [address] [place] [address] Phone Care Team Providers Care Casting Tester Name Role Phone Fabby Natty MOISE Primary Care Provider [phone] Allergies Active Allergy Reactions Criticality Noted Date Comments Bee Venom Anaphylaxis High 01/13/2021 Cephalosporins Other (see comments) Low 01/13/2021 Pt. Not sure of reaction Clonidine Other (see comments) Low 11/05/2019 Bad for kidney per pt Codeine Anaphylaxis High 11/05/2019 RESP ARREST/SOB Iodinated Contrast Media Hives,Vomiting Medium 024 Pt reports allergy to contrast 10 years ago , has not had allergic reaction since, Hydrochlorothiazide Other (see comments) High 06/25/2020 Pt. States it increase her potassium Hydrochlorothiazide W-Triamterene Low 11/03/2021 Other reaction(s): renal failure Lisinopril Other (see comments) High 11/05/2019 Pt. States it will increase her potassium Amlodipine Other (see comments) High 11/05/2019 Pt. States it will increase her potassium Peg 2691-Lao-Stpzr-Nacl-Nasulf Other (see comments) Low 11/05/2019 Bad for kidney per pt , vomiting fever hives Penicillins Hives,Shortness of breath High 11/05/2019 Polyethylene Glycol Other (see comments) Low 01/13/2021 Pt. States not sure of reaction Sodium Sulfate Other (see comments) Low 01/13/2021 Unsure Sulfa Antibiotics Other (see comments) Low 01/13/2021 unsure Sulfamethoxazole-Trimethopr im Other (see comments) Medium 11/05/2019 unsure Triamterene Other (see comments) Low 06/25/2020 Unsure Trimethoprim Other (see comments) Medium 01/13/2021 Unsure Valsartan Other (see comments) Low 06/25/2020 Pt unaware of allergy Medications nystatin (MYCOSTATIN) powder APPLY TWICE A DAY 15 g 2 08/08/19 21 Active atorvastatin (LIPITOR) 80 MG tablet Take 1 tablet (80 mg total) by mouth daily 90 tablet 3 08/14/19 21 Active pramipexole (MIRAPEX) 0.25 MG tablet Take 1 tablet (0.25 mg total) by mouth daily 90 tablet 3 08/14/19 21 Active torsemide (Demadex) 20 MG tablet Take 2 tablets (40 mg total) by mouth 1 (one) time each day 180 tablet 3 08/18/19 21 Active Basaglar KwikPen 100 UNIT/ML injection INJECT 60 TO 100 UNITS SUBCUTANEOUSLY ONCE DAILY 3 mL 1 03/16/20 21 Active sevelamer (RENAGEL) 800 MG tablet Take 2,400 mg by mouth in the morning and 2,400 mg at noon and 2,400 mg in the evening. Take with meals. 10/28/19 22 Active levothyroxine (SYNTHROID, LEVOTHROID) 137 MCG tablet levothyroxine 137 mcg tablet 02/07/20 21 Active B Bbawdax-W-Ceqwr Acid (NEPHROCAPS PO) Take 1 capsule by mouth 10/18/19 21 Active apixaban (ELIQUIS) 5 MG tablet Take 5 mg by mouth in the morning and 5 mg in the evening. Active NIFEdipine XL (PROCARDIA XL) 30 MG 24 hr tablet Take 1 tablet (30 mg total) by mouth every other day Non dialysis days 90 tablet 3 03/01/20 24 Active metoprolol tartrate 25 MG tablet Take 1 tablet (25 mg total) by mouth in the morning. 90 tablet 3 03/01/20 24 Active Nurtec 75 MG tablet dispersible DISSOLVE 1 TABLET ON THE TONGUE EVERY 24 HOURS NEEDED FOR MIGRAINE HEADACHE. NOT TO EXCEED 75 MG IN 24 HOURS 02/21/20 24 Active melatonin 3 MG tablet Take 5 mg by mouth 07/08/20 22 Active acetaminophen (TYLENOL) 325 MG tablet Take 975 mg by mouth 03/08/20 23 Active linaCLOtide (Linzess) 145 MCG capsule if needed 11/24/19 23 Active losartan (COZAAR) 100 MG tablet 1 tablet DIRECTED (route: oral) 11/24/19 23 Active Sodium Zirconium Cyclosilicate (Lokelma) 10 g pack Take by mouth Active oxyCODONE-acetami nophen (PERCOCET) 10-325 MG per tablet Take 1 tablet by mouth every 4 (four) hours if needed for moderate pain 180 tablet 05/02/20 24 Active Riboflavin 400 MG tablet Take 1 tablet by mouth 1 (one) time each day Active pregabalin (LYRICA) 25 MG capsule Take 1 capsule by mouth in the morning and 1 capsule at noon and 1 capsule in the evening. Active Insulin Aspart, w/Niacinamide, (Fiasp PenFill) 100 UNIT/ML solution cartridge Active Calcium Acetate, Phos Binder, 667 MG capsule Take 1 capsule by mouth in the morning and 1 capsule at noon and 1 capsule in the evening. Take with meals. Active Biotin 10 MG capsule Take 2 capsules by oral route. Active amLODIPine (NORVASC) 10 MG tablet 05/31/20 24 Active Probiotic Product (PROBIOTIC ADVANCED PO) Active Ferric Citrate 1 GM 210 MG(Fe) tablet Take by mouth Active Active Problems Problem Noted Date Diagnosed Date Ulcer 07/16/2024 Cataract 04/03/2024 Personal history of kidney stones 04/03/2024 Urinary tract infection 04/03/2024 Back pain 04/03/2024 Coronary arteriosclerosis 08/17/2022 Myocardial infarction 08/17/2022 Pneumonia 08/17/2022 Hearing problem 08/17/2022 Irritable bowel syndrome 08/17/2022 Easy bruising 08/17/2022 Cyst of scalp 05/04/2022 Diabetic peripheral neuropathy 05/04/2022 Hypertension 02/25/2022 Hypercholesterolemia 02/25/2022 Hypothyroidism 02/25/2022 Restless leg syndrome 11/03/2021 Osteoarthritis 11/03/2021 Obese class I 11/03/2021 History of malignant neoplasm of uterine body Diabetes mellitus 11/03/2021 Morbid obesity 12/04/2020 End stage renal disease 12/04/2020 Dependence on renal dialysis 12/04/2020 Stage 5 chronic kidney disease 11/05/2019 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/09/2014 Acute nontraumatic kidney injury Anemia Hyperkalemia Hypertensive nephrosclerosis Hyperuricemia Other abnormal clinical findings Overview (11/05/2019): solitary kidney Renal artery stenosis Serum creatinine above reference range 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 Encounters Date Type Department Care Team Description 09/17/2024 Treatment [facility], [address] [place] [address] Claude Millard MD 09/05/2024 Treatment [facility], [address] [place] [address] Claude Millard MD 08/06/2024 Treatment [facility], [address] [place] [address] Claude Millard MD from Last 3 Months Family History Medical History Relation Comments Diabetes Father and grandparents Heart disease Father grandmother dads brother [place] Hypertension Father and grandparents Kidney disease Father Dialysis Other Father was on dialysis Heart attack Father's Brother Stroke Maternal Grandmother Cancer Mother Liver Lung Hypertension Mother Liver cancer Mother Lung cancer Mother Stroke Mother grandmother Diabetes Paternal Grandfather Hypertension Paternal Grandfather Diabetes Paternal Grandmother Heart disease Paternal Grandmother Hypertension Paternal Grandmother Relation Status Comments Father Father's Brother Maternal Grandmother Mother Paternal Grandfather Paternal Grandmother Social History Tobacco Use Types Packs/Day Years Used Date Smoking Tobacco: Never Smokeless Tobacco: Never Tobacco Cessation:Counseling Given: Not Answered Alcohol Use Standard Drinks/Week Comments Not Currently 0 (1 standard drink = 0.6 oz pur e alcohol) Comments Unknown Sex and Gender Information Value Date Recorded Sex Assigned at Not on file Legal Sex Female 4:33 PM EST Gender Identity Not on file Sexual Orientation Not on file Last Filed Vital Signs Vital Sign Reading Time Taken Comments Blood Pressure 143/63 07/16/2024 8:15 AM EST Pulse 73 07/16/2024 8:15 AM EST Temperature 36.6 ??C (97.9 ??F) 07/16/2024 8:15 AM ES T Respiratory Rate 16 07/16/2024 8:15 AM EST Oxygen Saturation 94% 07/16/2024 8:15 AM EST Inhaled Oxygen Concentration - - Weight 102 kg (225 lb) 07/16/2024 8:15 AM EST Height 175.3 cm (5' 9 ) 07/16/2024 8:15 AM EST Body Mass Index 33.23 07/16/2024 8:15 AM EST Plan of Treatment Upcoming Encounters Date Type Department Care Team (Late st Contact Info) Description 11/08/2024 11:00 AM EDT Procedure visit [facility] [address] [place] [address] Health Maintenance Due Date Last Done Comments Breast Cancer Screening 1950 Hepatitis B Vaccine (1 of 5 - Risk Dialysis 4-dose series) 1972 Colorectal Cancer Screening: Annual FOBT 2001 Colorectal Cancer Screening: Sigmoidoscopy 2001 Diabetes: Ophthalmology Exam 10/11/2019 Diabetes: Pedal Pulse Checked 10/11/2019 Diabetes: Sensory Foot Exam 10/11/2019 Diabetes: Visual Foot Exam 10/11/2019 Diabetes: Hemoglobin A1C 07/29/2022 022, 01/27/2022, 10/28/2021, Additional history exists Influenza Vaccine (Season Ended) 2025 Colorectal Cancer Screening: Colonoscopy 10/28/2031 10/27/2021 Pneumococcal Vaccine: 65+ Years Completed , 10/17/2017 Procedures Procedure Name Priority Date/Time Associated Diagnosis Comments SPECIAL CHEMISTRY Routine 04/28/2022 3:0 0 PM EDT from Last 3 Months or Most Recently Relevant to Health Maintenance Results * (ABNORMAL) SPECIAL CHEMISTRY (04/28/2022 3:00 PM EDT) Hemoglobin A1C 6.4(H) 4.8 - 5.9 % [facility] 04/28/2022 3:00 PM EDT 04/29/2022 7:06 AM EDT Narrative [facility] - 04/28/2022 3:00 PM EDT Unless otherwise specified, test(s) performed at: [facility], [address] [place] [id number] WELDING ESTIMATOR: Terry Silva M.D. For any questions, please call customer service at FREQUENCY:[facility]TER[facility] Resulting Agency Comment Specimen source: Blood us Eric Martínez MD LAB BLOOD BANK TEST ORDERABLES F inal Result [facility] from Last 3 Months or Most Recently Relevant to Health Maintenance Insurance MEDICARE MEDICAID [place] Care Teams Casting Tester Relationship Specialty Start Date End Date Natty Sequeira NP [address] [place] [id number] PCP - General Nurse Practitioner 09/03/21
--- OUTSIDE RECORDS SUMMARY | 2024-10-30 18:36 | XMS_ITS | Encounter Summary ---
Author Organization [facility], Address [address] [place] [address] Phone Care Team Providers Care Roll Reclaimer Name Role Phone Natty Sequeira NP Primary Care Provider [phone] Reason for Visit * Reason Comments Med Refill Encounter Details Date Type Department Care Team (Late st Contact Info) Description 11/14/2020 Refill [facility] [address] [place] [address] Frank Krishnamurthy MD [address] [place] [address] [place] [phone] Social History Tobacco Use Types Packs/Day Years [...] visit [facility] [address] [place] [address] [place] [phone] documented as of this encounter Visit Diagnoses Not on filedocumented in this encounter Care Teams Roll Reclaimer Relationship Specialty Start Date End Date Natty Sequeira NP [address] [place] [address] PCP - General Nurse Practitioner 09/03/21 documented as of this encounter
--- OUTSIDE RECORDS SUMMARY | 2024-10-30 18:36 | XMS_ITS | Encounter Summary ---
Author Organization [facility], Address [address] [place] [address] Phone Care Team Providers Care Orchard Pruner Name Role Phone Natty Sequeira NP Primary Care Provider [phone] Encounter Details Date Type Department Care Team (Late st Contact Info) Description 08/15/2023 Documentation Only [facility] [address] [place] [phone] [place] [address] [place] [phone] Social History Tobacco Use Types Packs/Day [...] visit [facility], - [facility] [address] [place] [phone] documented as of this encounter Visit Diagnoses Not on filedocumented in this encounter Care Teams Orchard Pruner Relationship Specialty Start Date End Date Natty Sequeira NP [address] [place] [address] PCP - General Nurse Practitioner 09/03/21 documented as of this encounter
--- OUTSIDE RECORDS SUMMARY | 2024-10-30 18:36 | XMS_ITS | Encounter Summary ---
Author Organization [facility], Address [address] [place] [address] Phone Care Team Providers Care Hoop Maker Name Role Phone Natty Sequeira NP Primary Care Provider Reason for Visit * Reason Comments Med Refill Encounter Details Date Type Department Care Team (Late st Contact Info) Description 06/24/2020 Refill [facility] [address] [place] [phone] Frank Krishnamurthy MD [address] [facility] [place] [phone] Social History Tobacco Use Types Packs/Day Years [...] visit [facility] [address] [place] [address] [place] [phone] documented as of this encounter Visit Diagnoses Not on filedocumented in this encounter Care Teams Hoop Maker Relationship Specialty Start Date End Date Natty Sequeira NP [address] [place] [address] PCP - General Nurse Practitioner 09/03/21 documented as of this encounter
== END 2024-10-30 16:20 | disposition home or self-care (01) ==
LOC: HO.HMCFM 15:40
PROVIDERS: PCP Internal Medicine; Visit Provider Internal Medicine
DX: M15.0 Primary generalized (osteo)arthritis (principal); E10.9 Type 1 diabetes mellitus without complications; M47.812 Spondylosis without myelopathy or radiculopathy, cervical region

== ENCOUNTER → 2024-10-30 15:39 | Outpatient (BNVA) | payer MEDICARE, MEDICAID, SELFPAY | PROVIDERS: PCP Internal Medicine; Visit Provider Internal Medicine | DX: M15.0 Primary generalized (osteo)arthritis (principal); M47.812 Spondylosis without myelopathy or radiculopathy, cervical region; E10.22 Type 1 diabetes mellitus with diabetic chronic kidney disease; N18.6 End stage renal disease; Z79.4 Long term (current) use of insulin; Z79.891 Long term (current) use of opiate analgesic; Z99.2 Dependence on renal dialysis | CPT/HCPCS: 96127; 99212 ==

== ENCOUNTER 2024-12-11 08:03 | Outpatient (REF) | payer MEDICARE, MEDICAID, SELFPAY ==
--- OUTSIDE RECORDS SUMMARY | 2024-12-11 08:07 | XMS_ITS | Encounter Summary ---
Author Organization [facility], Address [address] [place] [address] Phone Care Team Providers Care Powder Room Attendant Name Role Phone Natty Sequeira BRICKMASON HELPER Primary Care Provider Reason for Visit * Reason Comments Med Refill Encounter Details Date Type Department Care Team (Late st Contact Info) Description 01/15/2020 Refill [facility] [address] [place] [address] Frank Krishnamurthy MD Social History Tobacco Use Types Packs/Day Years Used Date Smoking Tobacco: Never Comments Unknown Sex and Gender Information Value Date Recorded Sex Assigned at Not on file Legal Sex Female 4:33 PM EST Gender Identity Not on file Sexual Orientation Not on file documented as of this encounter Plan of Treatment Upcoming Encounters Date Type Department Care Team (Late st Contact Info) Description 10/03/2025 11:00 AM EDT Office Visit [facility] [address] [place] [address] [place] [address] documented as of this encounter Visit Diagnoses Not on filedocumented in this encounter Care Teams Powder Room Attendant Relationship Specialty Start Date End Date Natty Sequeira NP [address] [place] [address] PCP - General Nurse Practitioner 09/03/21 documented as of this encounter
--- OUTSIDE RECORDS SUMMARY | 2024-12-11 08:08 | XMS_ITS | Encounter Summary ---
Author Organization [facility], Address [address] [place] [address] Phone Care Team Providers Care Pari Mutuel Clerk Name Role Phone Natty Sequeira NP Primary Care Provider [phone] Reason for Visit * Reason Comments Med Refill Encounter Details Date Type Department Care Team (Late st Contact Info) Description 12/26/2020 Refill [facility] [address] [place] [address] Frank Krishnamurthy MD Social History [...] Visit [facility] [address] [place] [address] documented as of this encounter Visit Diagnoses Not on filedocumented in this encounter Care Teams Pari Mutuel Clerk Relationship Specialty Start Date End Date Natty Sequeira NP [address] [place] [address] PCP - General Nurse Practitioner 09/03/21 documented as of this encounter
--- OUTSIDE RECORDS SUMMARY | 2024-12-11 08:08 | XMS_ITS | Encounter Summary ---
Author Organization [facility], Address [address] [place] [address] Phone Care Team Providers Care Liability Claims Manager Name Role Phone Natty Sequeira BRAZING MACHINE OPERATOR AUTOMATIC Primary Care Provider [phone] Reason for Visit * Reason Comments Med Refill Encounter Details Date Type Department Care Team (Late st Contact Info) Description 10/06/2019 Refill [facility] [address] [place] [address] Frank Krishnamurthy MD Social History [...] Visit [facility] [address] [place] [address] [place] [address] documented as of this encounter Visit Diagnoses Not on filedocumented in this encounter Care Teams Liability Claims Manager Relationship Specialty Start Date End Date Natty Sequeira NP [address] [place] [address] PCP - General Nurse Practitioner 09/03/21 documented as of this encounter
--- OUTSIDE RECORDS SUMMARY | 2024-12-11 08:08 | XMS_ITS | Encounter Summary ---
Author Organization [facility], Address [address] [place] [address] Phone Care Team Providers Care Valve Fitter Name Role Phone Natty Sequeira COMMUNICATIONS EXECUTIVE Primary Care Provider [phone] Reason for Visit * Reason Comments Med Refill Encounter Details Date Type Department Care Team (Late st Contact Info) Description 11/14/2020 Refill [facility] [address] [place] [address] Frank Krishnamurthy MD Social History [...] Visit [facility] [address] [place] [address] [place] [address] documented as of this encounter Visit Diagnoses Not on filedocumented in this encounter Care Teams Valve Fitter Relationship Specialty Start Date End Date Natty Sequeira NP [address] [place] [address] PCP - General Nurse Practitioner 09/03/21 documented as of this encounter
--- OUTSIDE RECORDS SUMMARY | 2024-12-11 08:08 | XMS_ITS | Encounter Summary ---
Author Organization [facility], Address [address] [place] [address] Phone Care Team Providers Care Numerical Control Machine Machinist Name Role Phone Natty Sequeira NP Primary Care Provider [phone] Reason for Visit * Reason Comments Med Refill Encounter Details Date Type Department Care Team (Late st Contact Info) Description 12/30/2020 Refill [facility] [address] [place] [address] Frank Krishnamurthy MD Social History [...] Visit [facility] [address] [place] [address] documented as of this encounter Visit Diagnoses Not on filedocumented in this encounter Care Teams Numerical Control Machine Machinist Relationship Specialty Start Date End Date Natty Sequeira NP [address] [place] [address] PCP - General Nurse Practitioner 09/03/21 documented as of this encounter
--- OUTSIDE RECORDS SUMMARY | 2024-12-11 08:08 | XMS_ITS | Data Portability ---
Author Organization [facility], [facility] Address [address] [place] [address] Assessment No assessment recorded. Plan of Treatment Reminders Order Date Submit Date Provider Last Modified By Organization Details Last Modified Time Details Appointments None recorded. Lab rapid strep group A, throat 2023 024 [email or web address] [facility], [address] [place], [address], 13:37:21 Referral None recorded. Procedures None recorded. Surgeries None recorded. Imaging None recorded. Medication Orders cephalexin 500 mg capsule 2023 024 [email or web address] Not available 10:00:27 Patient TargetsNo targets recorded. Patient Instructions Encounter Date Encounter Id Patient Instructions Last Modified By Organization Details Last Modified Time 11/13/2023 [id number] strep throat: care instructions Not available 11/13/2023 [...] Range : Negat breanne Not Available [facility] ([facility]) [address] [facility], [place], [address], 11/25/2023 12:06:26 11/13/19 24 11/15/2023 SPECI MEN IDENT IFICA TION STATU S specimen identificati on status TNP Comme nt: Test( s) not perfo rmed. Testi ng of the speci men could not be compl eted due to a speci men ident ifica tion probl em. No patie nt ident ifica tion on conta iner. TEST: [id number] Beta Strep Gp A Cultu re Not Available [facility] ([facility]) [address] [facility], [place], [address], 11/25/2023 12:06:26 11/13/19 24 11/13/2023 rapid strep group A, throa t Unknown Analyte negati ve Not Available [facility] [address], [address], 11/13/2023 13:05:51 11/13/19 24 11/13/2023 rapid strep group A, throa t Unknown Analyte negati ve Not Available [facility] ie [address], [address], 11/13/2023 13:05:51 11/13/19 24 11/13/2023 rapid strep group A, throa t Unknown Analyte yes Not Available [facility] [address], [address], 11/13/2023 13:05:51 Result Notes None recorded. Problems Name Problem SNOMED Code Status Onset Date Resolution Date Notes Provider Name and Address Organization Details Recorded Time Hypertensive disorder 79476179 Active 2023 [facility] 13:04:33 Diabetes mellitus 96912624 Active 2023 [facility] 13:04:38 Streptococcal sore throat 61960027 Active 2023 Boby Stokes, LEAD SOFTWARE DEVELOPER [address] [place], [address] , [place] 13:35:16 Problem Notes None recorded. Medical Equipment None Reported. Allergies Allergen ID Allergen Name Allergen Category Reaction Reaction Severity Criticality Documentation Date Start Date Code Code System Note Provider Name and Address Organization Details Recorded Time 235460 penicilli n G Not available hives Not available Not available 11/13/2023 7980 RxNorm [facility] 4 13:03:36 358823 codeine medicatio n Not available Not available Not available 11/13/2023 2670 RxNorm Pt stopp ed breat [facility] this medic aton [facility] 13:03:55 Medications Name Sig Start Date Stop [...] and Address Organization Details Last Updated DateTime 175.26 cm 33.2 kg/m2 714983. 28 g 17 /min 66 /min 99 % 99 % 97.8 [degF] 138 mm[Hg] 75 mm[Hg] Nanda [facility] 13:07:49 Social History Question Answer Notes LastModified by Organizat ion Details LastModified Time Tobacco Smoking Status Never Smoker [facility] 11/13/2023 13:05:08 Have You Had A Flu Shot This [...] Tobacco Screening? 11/13/2023 Information not available 11/13/2023 Have You Recently Traveled Abroad? No Information not available 11/13/2023 Sex: Unknown Functional Status Question Answer Note LastModified by Organizat ion Details LastModified Time Do you use any illicit or recreational drugs? No Information not available 11/13/2023 What is your level of alcohol consumption? None Information not available 11/13/2023 Mental Status None recorded. Family History Nothing Reported. Medical History No medical history recorded. Gynecological HistoryNo gynecological history recorded. Obstetrics History GPAL:G 0 P 0 0 0 0 Past Encounters Encounter ID Performer Location Encounter Start Date Encounter Closed Date Diagnosis/Indication Diagnosis SNOMED-CT Code Diagnosis ICD10 Code Diagnosis [place] [id number] [place] [address] [address] 11/13/2023 12:08:41 11/13/2023 13:58:33 Streptococcal sore throat 82304373 J02.0 Based on your Presentati on, Exam, [...] . Severe Headache Thank you for using [facility] today, please feel free to contact our office if you have any questions or concerns. Health Concerns Section Related Observation LastModified by Organization Detai ls LastModified Time None Recorded Concern Status LastModified by Organization Details LastModified Time None Recorded Advance Directives Directive None Recorded Payers Insurance Date Sequence Insurance Name Policy Number Policy Abreu Covered Member ID Abreu Member ID Guarantor Name 01/20/2024 2 [place] [facility] Kathleen Mendez [id number] Kathleen Mendez 12/01/2023 1 MEDIC[place] B[place] [employer] Kathleen Mendez [id number] Kathleen Mendez Notes Date Note Type Note [...] MARIA Stokes [address] [place], [address], [place] - [facility] 11/13/2023 15:42:45 OBGyn Episode No OBEpisode recorded.
--- OUTSIDE RECORDS SUMMARY | 2024-12-11 08:08 | XMS_ITS | Encounter Summary ---
Author Organization [facility] Address [address] [place] [address] Phone Care Team Providers Care Radio Adjuster Name Role Phone Natty Sequeira NP Primary Care Provider [phone] Encounter Details Date Type Department Care Team (Late st Contact Info) Description 09/02/2021 Documentation Only [facility] [address] [place] [phone] Clair Rivera [address] [place] [address] Social History Tobacco Use Types Packs/Day [...] Visit [facility] [address] [place] [address] documented as of this encounter Visit Diagnoses Not on filedocumented in this encounter Care Teams Radio Adjuster Relationship Specialty Start Date End Date Natty Sequeira NP [address] [place] [address] PCP - General Nurse Practitioner 09/03/21 documented as of this encounter
--- OUTSIDE RECORDS SUMMARY | 2024-12-11 08:08 | XMS_ITS | Encounter Summary ---
Author Organization [facility], Address [address] [place] [address] Phone Care Team Providers Care Typewriter Repairer Name Role Phone Natty Sequeira NP Primary Care Provider [phone] Encounter Details Date Type Department Care Team (Late st Contact Info) Description 08/15/2023 Documentation Only [facility] [address] [place] [address] [place] [address] [place] [address] Social History Tobacco Use Types Packs/Day [...] Visit [facility], - V[facility] Access Center [address] [place] [address] documented as of this encounter Visit Diagnoses Not on filedocumented in this encounter Care Teams Typewriter Repairer Relationship Specialty Start Date End Date Natty Sequeira NP [address] [place] [address] PCP - General Nurse Practitioner 09/03/21 documented as of this encounter
--- OUTSIDE RECORDS SUMMARY | 2024-12-11 08:08 | XMS_ITS | Encounter Summary ---
Author Organization [facility], Address [address] [place] [address] Phone Care Team Providers Care Farm Truck Driver Name Role Phone Natty Sequeira NP Primary Care Provider [phone] Reason for Visit * Reason Comments Med Refill Encounter Details Date Type Department Care Team (Late st Contact Info) Description 12/01/2020 Refill [facility] [address] [place] [address] Frank Krishnamurthy MD Social History [...] Visit [facility] - [facility] [address] [place] [address] documented as of this encounter Visit Diagnoses Not on filedocumented in this encounter Care Teams Farm Truck Driver Relationship Specialty Start Date End Date Natty Sequeira NP [address] [place] [address] PCP - General Nurse Practitioner 09/03/21 documented as of this encounter
--- OUTSIDE RECORDS SUMMARY | 2024-12-11 08:08 | XMS_ITS | Encounter Summary ---
Author Organization [facility], Address [address] [place] [address] Phone Care Team Providers Care Tanning Salon Attendant Name Role Phone Natty Sequeira NP Primary Care Provider [phone] Reason for Visit * Reason Comments Med Refill Encounter Details Date Type Department Care Team (Late st Contact Info) Description 10/30/2020 Refill [facility] [address] [place] [address] Frank Krishnamurthy MD Social History [...] Visit [facility] - [facility] [address] [place] [address] documented as of this encounter Visit Diagnoses Not on filedocumented in this encounter Care Teams Tanning Salon Attendant Relationship Specialty Start Date End Date Natty Sequeira NP [address] [place] [address] PCP - General Nurse Practitioner 09/03/21 documented as of this encounter
--- OUTSIDE RECORDS SUMMARY | 2024-12-11 08:08 | XMS_ITS | Clinical Summary ---
Author Organization [facility], Address [address] [place] [address] Phone Care Team Providers Care Cdl Team Truck Driver Name Role Phone Fabby Natty JOSE MARIA Primary Care Provider [phone] Allergies Active Allergy Reactions Criticality Noted Date [...] 06/25/2020 Pt. States it increase her potassium Hydrochlorothiazide-Triamte claudia Low 11/03/2021 Other reaction(s): renal failure Lisinopril Other (see comments) High 11/05/2019 Pt. States it will increase her potassium Amlodipine Other (see comments) High 11/05/2019 Pt. States it will increase her potassium Peg 9471-Nvn-Uadym-Nacl-Nasulf Other (see comments) Low 11/05/2019 Bad for [...] day 180 tablet 3 08/18/19 21 Active sevelamer (RENAGEL) 800 MG tablet Take 2,400 mg by mouth in the morning and 2,400 mg at noon and 2,400 mg in the evening. Take with meals. 10/28/19 22 Active levothyroxine (SYNTHROID, LEVOTHROID) 137 MCG tablet levothyroxine 137 mcg tablet 02/07/20 21 Active B Tnpribi-R-Pcmou Acid (NEPHROCAPS PO) Take 1 capsule by [...] 975 mg by mouth 03/08/20 23 Active losartan (COZAAR) 100 MG tablet 1 tablet DIRECTED (route: oral) 11/24/19 23 Active Sodium Zirconium Cyclosilicate (Lokelma) 10 g pack Take by mouth Active oxyCODONE-acetam inophen (PERCOCET) 10-325 MG per tablet Take 1 [...] 210 MG(Fe) tablet Take by mouth Active Insulin Lispro 100 UNIT/ML solution Inject under the skin 04/24/20 24 Active DM-Phenylephrine -Acetaminophen 10-5-325 MG capsule Take 10 mL by mouth 04/24/20 24 Active allopurinol (ZYLOPRIM) 100 MG tablet Take 1 tablet by mouth 1 (one) time each day 11/22/19 24 Active doxycycline (VIBRA-TABS) 100 MG tablet Take 1 tablet by mouth in the morning and 1 tablet in the evening. Active ipratropium-albu terol (DUO-NEB) 0.5-2.5 mg/3 mL nebulizer solution Take 3 mL by nebulization every 4 (four) hours if needed 04/24/20 24 Active azithromycin (ZITHROMAX) 250 MG tablet Take 250 mg by mouth 1 (one) time each day X 4 days Active Insulin Degludec FlexTouch 100 UNIT/ML solution pen-injector 11/13/19 25 Active Basaglar KwikPen 100 UNIT/ML injection INJECT 60 TO 100 UNITS SUBCUTANEOUSLY ONCE DAILY 3 mL 1 03/16/20 21 025 Discontin ued(Med List Maintenan ce) linaCLOtide (Linzess) 145 MCG capsule if needed 11/24/19 025 Discontin ued(Med List Maintenan ce) Active Problems Problem Noted Date Diagnosed Date [...] Encounters Date Type Department Care Team Description 11/23/2024 Telephone [facility] [place] [address] [place] [address] Michelle Diehl Questioned fg appt in 1 yr 11/23/2024 Telephone [facility] [place] [address] [place] [address] Ricarda Maxwell post op call 11/22/2024 2:00 PM EDT Procedure visit [facility] [place] [address] [place] [address] Eagle Elaine MD End stage renal disease (HCC) (Primary Dx) 11/20/2024 Telephone [facility] - V[facility] Access Center [address] [place] [address] David Kabaeline 11/19/2024 Treatment [facility] [address] [place] [address] Claude Millard MD End stage renal disease; Dependence on renal dialysis 11/07/2024 Telephone [facility] Center [address] [place] [address] [place] [address] Figueroa, Elke 10/31/2024 Treatment [facility] [address] [place] [address] Claude Millard MD End stage renal disease; Dependence on renal dialysis 09/17/2024 Treatment [facility] [address] [place] [address] Claude Millard MD from Last 3 Months Family History Medical History Relation Comments Diabetes Father and grandparents Heart disease Father grandmother dads brother [place] Hypertension Father and grandparents Kidney disease Father [...] Sign Reading Time Taken Comments Blood Pressure 187/82 11/22/2024 1:33 PM EDT Pulse 66 11/22/2024 1:33 PM EDT Temperature 35.9 ??C (96.6 ??F) 11/22/2024 1:33 PM ED T Respiratory Rate 16 11/22/2024 1:33 PM EDT Oxygen Saturation 98% 11/22/2024 1:33 PM EDT Inhaled Oxygen Concentration - - Weight 102 kg (225 lb) 11/22/2024 1:33 PM EDT Height 175.3 cm (5' 9 ) 11/22/2024 1:33 PM EDT Body Mass Index 33.23 11/22/2024 1:33 PM EDT Plan of Treatment Upcoming Encounters Date Type Department Care Team (Late st Contact Info) Description 10/03/2025 11:00 AM EDT Office Visit [facility] [address] [place] [address] Health Maintenance Due Date Last Done [...] Cancer Screening: Colonoscopy 10/28/2031 10/27/2021 Pneumococcal Vaccine: 50+ Years Completed , 10/17/2017 Pneumococcal Vaccine: Peds ( 0 to 5 Years) and At-Risk Patients (6 to 49 Years) Discontinued 10/09/2020, 10/17/2017 Procedures Procedure Name Priority Date/Time Associated Diagnosis Comments ALT EXT LABS Routine 10/24/2024 SPECIAL CHEMISTRY Routine 04/28/2022 3:0 0 PM EDT from Last 3 Months or Most Recently Relevant to Health Maintenance Results * ALT EXT LABS (10/24/2024) Potassium 5.4 3.4 - 5.5 10/24/2024 Historical Provider LAB BLOOD ORDERABLES Angélica l Result * (ABNORMAL) SPECIAL CHEMISTRY (04/28/2022 3:00 PM EDT) Hemoglobin A1C 6.4(H) 4.8 - 5.9 % [facility] 04/28/2022 3:00 PM EDT 04/29/2022 7:06 AM EDT Narrative [facility] - 04/28/2022 3:00 PM EDT Unless otherwise specified, test(s) performed at: [place] [address] APPLIED EXERCISE PHYSIOLOGIST: Terry Silva M.D. For any questions, please call customer service at [facility] Resulting Agency Comment Specimen source: Blood Eric Martínez MD LAB BLOOD BANK TEST ORDERABLES F inal Result [facility] from Last 3 Months or Most Recently Relevant to Health Maintenance Insurance Medicare Medicaid [place] Care Teams Cdl Team Truck Driver Relationship Specialty Start Date End Date Natty Sequeira NP [address] [place] [address] PCP - General Nurse Practitioner 09/03/21
--- OUTSIDE RECORDS SUMMARY | 2024-12-11 08:08 | XMS_ITS | Encounter Summary ---
Author Organization [facility], Address [address] [place] [address] Phone Care Team Providers Care Precision Instrument And Tool Maker Name Role Phone Natty Sequeira NP Primary Care Provider [phone] Reason for Visit * Reason Comments Med Refill Encounter Details Date Type Department Care Team (Late st Contact Info) Description 12/01/2020 Refill [facility] [address] [place] [address] Frank Krishnamurthy MD Social History [...] Visit [facility] - V[facility] Access Center [address] [place] [address] documented as of this encounter Visit Diagnoses Not on filedocumented in this encounter Care Teams Precision Instrument And Tool Maker Relationship Specialty Start Date End Date Natty Sequeira NP [address] [place] [address] PCP - General Nurse Practitioner 09/03/21 documented as of this encounter
--- OUTSIDE RECORDS SUMMARY | 2024-12-11 08:08 | XMS_ITS | Encounter Summary ---
Author Organization [facility] [place], Address [address] [place] [address] Phone Care Team Providers Care Anaesthetic Technician Name Role Phone Natty Sequeira NP Primary Care Provider Reason for Visit * Reason Comments Med Refill Encounter Details Date Type Department Care Team (Late st Contact Info) Description 06/24/2020 Refill [facility] [address] [place] [address] Frank Krishnamurthy MD Social History Tobacco Use [...] Visit [facility] - [facility] [address] [place] [address] documented as of this encounter Visit Diagnoses Not on filedocumented in this encounter Care Teams Anaesthetic Technician Relationship Specialty Start Date End Date Natty Sequeira NP [address] [place] [address] PCP - General Nurse Practitioner 09/03/21 documented as of this encounter
--- OUTSIDE RECORDS SUMMARY | 2024-12-11 08:08 | XMS_ITS | Data Portability ---
Author Organization [place] - Hugo Mace [facility], [facility] Address [address] [place] [address] Assessment Encounter Date Assessment Date Assessment LastModified by Organization Details LastModified Time 11/06/2024 11/06/2024 PROBLEM: Right Hip Endstage Osteoarthritis and end-stage renal disease HISTORY: The patient is a 74-year-old female who presents today for evaluation of her right hip. I have previously treated her in the past. She is essentially wheelchair-bound at this point. She does use a walker at home. The patient has very significant difficulty participating in activities of daily living. She is unable to don and doff shoes. She is unable to climb stairs. She has difficulty transitioning from sit to stand. She is nearly homebound due to limited mobility. The patient has been off dialysis for 3 years. She reports her hip has been little worse for the past 6 months. She states her electrolytes are stable on dialysis. She had intra-articular hip injection of the left hip performed on 324 with mixed benefit. Right hip injection in the past been helpful. This was greater than 3 months ago. The patient's hip symptom profile form was reviewed and included in the record. The patient remains symptomatic and has had unsuccessful history of appropriate conservative therapy (non-surgical medical management). Non surgical medical management has been implemented for 3 months or more to assess effectiveness. Conservative treatment as clinically appropriate for the patient? s current episode of care including, but not limited to, one or more of the following: anti-inflammatory medications, analgesics, flexibility and muscle strengthening exercises, supervised physical therapy (Activities of daily living (ADLs) diminished despite completing a plan of care), activity restrictions as is reasonable, assistive device use, weight reduction as appropriate, and therapeutic injections into the joint as appropriate PFMSH and ROS have been reviewed, updated, and is located in the patient? s chart. PAST MEDICAL HISTORY: Past medical history is significant for diabetes, hypercholesteremi a, pneumonia, hypertension, thyroid disease, uterine cancer PAST SURGICAL HISTORY: Past surgical history includes kidney stent, cholecyst to main MEDICATIONS: List is available for review in the chart . ALLERGIES: Patient reports an allergy to cephalosporins and penicillins. Does not report an allergy to metal, latex, Iodine, tape, or adhesives. SOCIAL HISTORY: The patient is retired. She does not consume tobacco, alcohol, or illegal drugs. She is . She sees the dentist regularly. She has a stair chair. She reports she has a support system PHYSICAL EXAMINATION: Please see vitals recorded below Mental status: Alert and lucid. Normal insight, affect, and grooming. 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 No spasticity or clonus noted. Extremities: Calves are soft and non-tender. Skin intact. Palpable pedal pulses equal bilaterally. Peripheral vascular, lymphatic examination, skin, neurological coordination, reflexes, sensation are within normal limits. ORTHOPEDIC EXAMINATION: Negative SLR tests bilaterally. Full ROM of both knees without pain. The patient is seated in her wheelchair. No attempt was made over to stand her. She has pain with internal/external rotation of the right hip. She has a positive Stinchfield test. She has no lateral tenderness. She has hip flexion to about 90 degrees. She has about 5 degrees of internal/external rotation of her hip. IMAGING: X-rays ordered, obtained, and reviewed today on [facility] PACS: AP pelvis, Marking AP of the Right hip, and Direct Lateral of the Right Hip. Demonstrate end-stage osteoarthritis of the Right hip with bone on bone articulation. Subchondral sclerosis and osteophyte formation are visible. There is no significant dysplasia.there are similar changes on the left IMPRESSION: Right hip end-stage osteoarthritis PLAN: I reviewed with the patient surgical and nonsurgical means to control symptoms. At this point the patient symptoms of become relatively severe. She would like to proceed with total hip arthroplasty. I reviewed the risks and benefits surgery with the patient in the office today. A relatively high risk candidate for surgery. We explained this at some length. Her surgery will need to be done at the hospital and coordinated with renal. We discussed the increased risks of infection and implant failure associated with her dialysis. Patient is well aware of these risks. Patient understands if hemoglobin needs to be less than 8. It is currently 6.6. The patient reports that she is mildly anemic. She is treated for this by renal. Patient wished to proceed with surgical scheduling. I attempted to answer all of her questions. The patient understands that they are at potential increased risk of postoperative infection, delayed recovery. The patient has exhausted all conservative treatment, therapy and measures. The patient was thoroughly counseled today regarding their hip condition, its natural history and the options, both operative and non-operative. The nature of hip replacement surgery, the potential risks, benefits, and complications, the magnitude of the surgery, the intensity of postoperative recovery as well as its elective nature was explained at length today. Issues regarding lifelong dislocation, infection, and activity precautions were reviewed. The longevity of the implants was discussed. The pros and cons of the different bearing surfaces were explained. The patient understands the potential need for revision surgery within the next 15 years. The patient also understands the potential complexity of a revision situation as well. A copy of my hip replacement information packet was given. The patient will require clearance from a medical doctor prior to surgery. The patient wishes to schedule an elective total hip replacement at this time. They were educated about the goal of discharge home from the hospital and given a prescription for pre-hab physical therapy. Next planned follow-up is at the history and physical. The patient knows I will be happy to meet with them again at any time in order to review any additional questions or concerns that they might have. Patient was satisfied with this plan. I attempted to answer all of the patient's questions. [facility] speech recognition roofing sales representative software was used to create portions of this document. An attempt at proofreading has been made to minimize errors. Please call for corrections. Not available 11/07/2024 07:29:18 Plan of Treatment Reminders Order Date Submit Date Provider Last Modified By Organization Details Last Modified Time Details Appointments JENNIFER Tamayo 2024 01:30P M Chaya Delgado APRN Not available Not available Not available PT INITIAL EVAL 2024 03:30P M Tami Oglesby PT Not available Not available Not available SURGERY @ [facility] 2024 07:30A M Juan Carlos Boland MD Not available Not available Not available PT INITIAL EVAL 2024 01:30P M Tami Wing, PT Not available Not available Not available POST OP 15 2024 02:15P M Miguel Germain PA-C Not available Not available Not available PT FOLLOW-U P 2024 01:30P M Tami Wing, PT Not available Not available Not available PT FOLLOW-U P 2024 11:00A M Tami Wing, PT Not available Not available Not available PT FOLLOW-U P 2024 11:00A M Tami Wing, PT Not available Not available Not available PT FOLLOW-U P 2024 11:00A M Ritamerna Rodriguezsak, CUSHION SPRING ASSEMBLER Not available Not available Not available PT FOLLOW-U P 2024 11:00A M Rita Rodriguezsak, CUSHION SPRING ASSEMBLER Not available Not available Not available POST OP 15 2024 01:30P M Miguel Germain PA-C Not available Not available Not available PT FOLLOW-U P 2024 11:30A M Tami Wing, PT Not available Not available Not available PT FOLLOW-U P 2024 11:30A M Tami Wing, PT Not available Not available Not available RECHECK 10 2024 01:00P M Juan Carlos Boland MD Not available Not available Not available Lab None recorded . Referral None recorded . Procedures None recorded . Surgeries None recorded . Imaging XR, hip + pelvis, unilater al, 2 or 3 view - 205, 3 views of right hip. Dr. Boland's protocol . 2024 025 [email or web address] [facility] Office, [address], [facility] [address], [place], [address], 11/16/2024 13:05:01 Medication Orders None recorded . Patient TargetsNo targets recorded. Patient InstructionsNo instructions recorded. Reason for Referral None Reported. Results Created Date Observation Date Name Description Value Unit Range Abnormal Flag Note LastModifiedBy Organization Detail LastModifiedTime 03/24/20 24 01/14/2022 imagi ng/di agnos tic resul t No observ ation record ed. [email or web address] Not Available 02/24 04:33:58 11/07/19 25 11/06/2024 XR, hip + pelvi s, unila teral , 2 or 3 view http:/ [email or web address] ?Encry pted=s hAaTro YD8dLq bEUv6g %2BXZw aYqtaq 0bqfl% 2Fg9IQ a4ajBk vP9nXo QUaueC m3YtLR FvZlgJ JJ8mAn HZtai3 [id number] AC0KqY 3qHUKG nKiQtr MwF INTERFACE [facility] [address], [place], [address], 11/06/2024 14:42:54 11/07/19 25 11/06/2024 XR, hip + pelvi s, unila teral , 2 or 3 view http:/ [email or web address] ?Encry pted=s hAaTro YD8dLq bEUv6g %2BXZw aYqtaq 0bqfl% 2Fg9IQ a4ajBk vP9nXo QUaueC m3YtLR FvZlgJ JJ8mAn HZtai3 1c9336 AC0KqY 3qHUKG nKiQtr MwF INTERFACE [facility] [address], [place], [address], 11/06/2024 14:42:56 Result Notes None recorded. Problems Name Problem SNOMED Code Status Onset Date Resolution Date Notes Provider Name and Address Organization Details Recorded Time Osteoarthri tis of left knee joint 0476167742541 09 Active 2024 Juan Carlos Boland MD [address], [place], [address], [facility] 5 18:15:42 Problem Notes None recorded. Procedures Surgical History Date Name Laterality Status Provider Name and Address Organization Details Recorded Time 4 JZHip US cancelled Miguel Germain PA-C [address], [place], [address], [facility] 03/20/2024 08:17:23 4 JZHip US cancelled Miguel Germain PA-C [address] [facility], [place], [address], [facility] 03/09/2024 07:35:31 4 Hip Kenalog Injection, L/R w/US completed Miguel Germain PA-C [address], [place], [address], [facility] 11/01/2023 08:00:56 4 Hip Kenalog 1cc Asp & Inj, L/R completed Miguel Germain PA-C [address] [facility], [place], [address], [facility] 10/04/2023 11:29:29 Imaging Results Imaging Date Name Status LastModified by Organiz ation Details LastModified Time 01/14/2022 imaging/diag nostic result completed [email or web address] Information not available 03/24/2024 04:33:58 11/06/2024 XR, hip + pelvis, unilateral, 2 or 3 view completed INTERFACE [facility] [address], [place], [address], 11/06/2024 14:42:54 11/06/2024 XR, hip + pelvis, unilateral, 2 or 3 view completed INTERFACE [facility] [address], [place], [address], 11/06/2024 14:42:56 Procedure Notes None recorded. Medical Equipment None Reported. Allergies Allergen ID Allergen Name Allergen Category Reaction Reaction Severity Criticality Documentation Date Start Date Code Code System Note Provider Name and Address Organization Details Recorded Time 10517 Medicinal product containin g cephalosp lester and acting as antibacte rial agent (product) medicatio n Not available Not available Not available 09/26/20232022 20865 9009 SNOMED Not Available [facility] 13:10:34 91351 Product containin g penicilli n (product) medicatio n Not available Not available Not available 09/26/20232020 82090 8001 SNOMED Not Available [facility] 13:10:35 Medications Name Sig Start Date Stop Date Status Note LastModified by Organization Details LastModified Time nifedipine ER 30 mg tablet,exte nded release 24 hr active Not Available Not Available Not Available levothyroxi ne 137 mcg tablet active Not Available Not Available Not Available atorvastati n 80 mg tablet active Not Available Not Available Not Available doxycycline hyclate 100 mg capsule TAKE 1 CAPSULE BY MOUTH TWO TIMES A DAY FOR 3 DAYS 10/11 completed Not Available Not Available Not Available torsemide 20 mg tablet active Not Available Not Available Not Available azithromyci n 250 mg tablet TAKE 1 TABLET BY MOUTH DAILY FOR 4 DAYS active Not Available Not Available No t Available allopurinol 100 mg tablet active Not Available Not Available Not Available doxycycline monohydrate 100 mg tablet TAKE 1 TABLET BY MOUTH DAILY FOR 10 DAYS 10/11 completed Not Available Not Available Not Available nifedipine ER 60 mg tablet,exte nded release 24 hr active Not Available Not Available Not Available oxycodone-a cetaminophe n 10 mg-325 mg tablet TAKE 1 TABLET BY MOUTH EVERY 4 HOURS NEEDED FOR MODERATE PAIN active Not Available Not Available No t Available amlodipine 10 mg tablet active Not Available Not Available Not Available cephalexin 500 mg capsule TAKE 1 CAPSULE BY MOUTH TWICE A DAY WITH MEAL(S) FOR 10 DAYS FOR STREP THROAT active Not Available Not Available No t Available biotin 10,000 mcg capsule Take 2 capsules by oral route. active Not Available Not Available No t Available pramipexole 0.25 mg tablet active Not Available Not Available Not Available losartan 100 mg tablet active Not Available Not Available Not Available doxycycline hyclate 100 mg tablet TAKE 1 TABLET BY MOUTH TWICE DAILY active Not Available Not Available No t Available Novolog FlexPen U-100 Insulin aspart 100 unit/mL (3 mL) subcutaneou s 2023 active Not Available Not Available Not Avai lable metoprolol tartrate 25 mg tablet active Not Available Not Available No t Available calcium acetate(ashwin sphate binders) 667 mg capsule TAKE 1 CAPSULE BY MOUTH THREE TIMES DAILY WITH MEALS active Not Available Not Available No t Available BD Ultra-Fine Mini Pen Needle 31 gauge x 3/16 USE WITH KWIKPEN FOUR TIMES DAILY WITH INSULIN 10/11 completed Not Available Not Available Not Available pregabalin 25 mg capsule TAKE 1 CAPSULE BY MOUTH THREE TIMES DAILY active Not Available Not Available No t Available Chest Congestion Relief 100 mg/5 mL oral liquid TAKE 10 ML BY MOUTH EVERY 8 HOURS FOR 10 DAYS NEEDED FOR COUGH 10/11 completed Not Available Not Available Not Available sevelamer carbonate 800 mg tablet TAKE 3 TABLETS BY MOUTH THREE TIMES DAILY WITH MEALS AND 1 TABLET TWICE DAILY WITH SNACKS 10/11 completed Not Available Not Available Not Available oxycodone 10 mg tablet active Not Available Not Available Not Available butalbital- acetaminoph en-caffeine 50 mg-300 mg-40 mg capsule TAKE 1 CAPSULE BY MOUTH EVERY 6 HOURS NEEDED. NOT TO EXCEED 6 CAPSULES DAILY active Not Available Not Available No t Available Probiotic active Not Available Not May ilable Not Available Easy Touch Alcohol Prep Pads USE DAILY TO CHECK GLUCOSE LEVELS active Not Available Not Available No t Available Linzess 145 mcg capsule Take 1 capsule every day by oral route. active Not Available Not Available No t Available Eliquis 5 mg tablet active Not Available Not Available No t Available riboflavin (vitamin B2) 400 mg tablet TAKE 1 TABLET BY MOUTH DAILY active Not Available Not Available No t Available Basaglar KwikPen U-100 Insulin 100 unit/mL (3 mL) subcutaneou s INJECT 25 UNITS UNDER THE SKIN AT BEDTIME active Not Available Not Available No t Available melatonin 5 mg chewable tablet Take 3 tablets by oral route at bedtime. active Not Available Not Available No t Available Fiasp FlexTouch U-100 Insulin 100 unit/mL (3 mL) subcutaneou s pen active Not Available Not Available Not Available Lokelma 5 gram oral powder packet DISSOLVE 1 PACKET IN 45 ML (3 TABLESPOO NS) OF WATER AND TAKE BY MOUTH EVERY DAY. DO NOT TAKE WITHIN 2 HOURS OF OTHER MEDICATIO NS 10/11 completed Not Available Not Available Not Available Lokelma 10 gram oral powder packet TAKE 1 PACKET DAILY DO NOT TAKE WITHIN 2 HOURS OF OTHER MEDICATIO NS active Not Available Not Available No t Available Dialyvite 800 800 mcg chewable tablet Take 1 tablet by oral route. active Not Available Not Available No t Available Fiasp Penfill U-100 Insulin 100 unit/mL (3 mL) subcutaneou s cartridge active Not Available Not Available Not Available Nurtec ODT 75 mg disintegrat ing tablet DISSOLVE 1 TABLET ON THE TONGUE EVERY 24 HOURS NEEDED FOR MIGRAINE HEADACHE. NOT TO EXCEED 75 MG IN 24 HOURS active Not Available Not Available No t Available Klayesta 100,000 unit/gram topical powder APPLY TOPICALLY TWICE DAILY NEEDED FOR RASH active Not Available Not Available No t Available Vitals Date Recorded Body height Body mass index (BMI) Body weight Provider Name and Address Organization Details Last Updated DateTime 10/04/2023 166.37 cm 36.9 kg/m2 500153.28 g KAYLIA L'HEUREUX [facility] 10/04/2023 11:12:45 Date Recorded Body height Body mass index (BMI) Body weight Provider Name and Address Organization Details Last Updated DateTime 11/01/2023 166.37 cm 36.9 kg/m2 513747.28 g KAYLIA L'HEUREUX [facility] 11/01/2023 14:10:17 Date Recorded Body height Body mass index (BMI) Body weight Provider Name and Address Organization Details Last Updated DateTime 11/06/2024 166.37 cm 41 kg/m2 272878.17 g Nikosabhishek Mcbride [facility] 11/06/2024 14:10:14 Social History Question Answer Notes LastModified by [facility] Details LastModified Time Tobacco Smoking Status [facility] 10/04/2023 11:15:49 What Is Your Relationship Status? [email or web address] Information not available 10/04/2023 Sex: Unknown Functional Status Question Answer Note LastModified by [facility] Details LastModified Time Do you use any illicit or recreational drugs? No Information not available 10/04/2023 Do you or have you ever used any other forms of tobacco or nicotine? No Information not available 10/04/2023 What is your level of alcohol consumption? None Information not available 10/04/2023 Mental Status None recorded. Family History Nothing Reported. Medical History Condition Response Allergies/Hayfever Y Coronary Artery Disease N Anxiety/Depression Y Emphysema N Thyroid Problems Y COPD N Pacemaker N Kidney/Bladder Problems N Anemia Y Vascular Disease N Heart Attack ([place]) N Gastrointestinal Disease N Diabetes Y Autoimmune disease N Bleeding Disorder N Orthotics N Seizures/Epilepsy Y Arthritis Y Blood Clot N AIDS/HIV N Congestive Heart Failure (CHF) N Acid Reflux (GERD) N Cancer Y Stroke N Asthma N Peripheral Vascular Disease N Sleep Apnea N Hepatitis N Heart Disease Y Pulmonary Embolism N Arrhythmia N Hypertension Y Osteoporosis N Gynecological HistoryNo gynecological history recorded. Obstetrics History GPAL:G 0 P 0 0 0 0 Past Encounters Encounter ID Performer Location Encounter Start Date Encounter Closed Date Diagnosis/Indication Diagnosis SNOMED-CT Code Diagnosis ICD10 Code Diagnosis Note [id number] Miguel Germain PA-C [address] [place] [address] 10/04/2023 10:51:39 10/05/2023 12:47:30 Osteoarthritis of right hip joint 6682397718 44137 M16.11 Osteoarthr itis of left hip joint 5634468674 86054 M16.12 [id number] Miguel Germain PA-C [address] [place] [address] 11/01/2023 13:57:06 11/01/2023 16:31:46 Osteoarthritis of left hip joint 4075343535 50563 M16.12 [id number] Juan Carlos Boland MD [facility] [address] [place] [address] 11/06/2024 13:24:23 11/16/2024 13:05:01 Pain of hip region 86293143 M25.551 Health Concerns Section Related Observation LastModified by Organization Detai ls LastModified Time None Recorded Concern Status LastModified by Organization Details LastModified Time None Recorded Advance Directives Directive None Recorded Payers Encounter Date Sequence Insurance Name Policy Number Policy Abreu Covered Member ID Abreu Member ID Guarantor Name 10/04/2023 1 [place] [employer] Kathleen A [place] [id number] Kathleen A [place] 10/04/2023 2 [place] [facility] Kathleen A [place] [id number] Kathleen A [place] 11/01/2023 1 [place] [employer] Kathleen A Andrea [id number] Kathleen A [place] 11/01/2023 2 [place] [facility] Kathleen Mendez [id number] Kathleen Mendez 11/06/2024 1 [place] [facility] Kathleen Mendez [id number] Kathleen Mendez 11/06/2024 2 [place] [facility] Kathleen Mendez [id number] Kathleen Mendez Notes Date Note Type Note Provider Name and Address Organization Details Recorded Time 10/04/2023 text/html I am seeing the patient today under the supervision of Dr. So who was available but who did not see the patient.HPI: Patient presents today complaining of Right hip pain. Has been evaluated by my colleague and diagnosed with hip osteoarthritis. Here today for an intraarticular cortisone injection.The patient has done very well with the left hip intraarticular injection. Now has pain in the right hip and would like to trial an intraarticular injection for this. Symptoms are very similar to the anterior groin worse with weightbearing activities.Past family, medical, social history and review of systems has been reviewed, updated and is located in the patient? s chart.Examination:R ight hip: Visual inspection reveals no swelling, ecchymosis or erythema about the hip. No tenderness to palpation about the hip. Hip range of motion limited with irritability during internal rotation and flexion.Xrays were reviewed today at [facility] including AP and lateral of the hip reveal severe osteoarthritic change of the right hip with joint space narrowing, subchondral sclerosis and cystic change. No acute fracture or dislocationImpressio n: Osteoarthritis Right hipPlan: I explained the nature of the diagnosis with the patient and its treatment options both conservative and surgical. After a long discussion with the patient, they are interested in proceeding with intra-articular hip injection. After consent was obtained we proceeded with injection. Risks of the procedure were discussed with patient including worsening osteoarthritis, small risk to blood vessels and tendons and nerves. Under normal sterile fashion using betadine, under ultrasound guidance, neurovascular bundle was first identified and then 2 cc of 1% lidocaine 1 cc of 40 mg of Kenalog was injected intra-articularly into the patient's Right hip. Ultrasound documentation was saved into PACS. Patient tolerated procedure well. Demonstrated early local anesthetic benefit. Postprocedure protocol was discussed with the patient. Patient will contact with any questions or worsening symptoms. Follow-up in 3 months. The patient understands and agrees with the plan. They know to call if they have any further questions or concerns regarding their symptoms, or to follow up sooner if needed. Miguel Germain PA-C [address], [place], [address], [place] [facility] [place] [facility] 10/04/2023 11:49:51 11/01/2023 text/html I am seeing the patient today under the supervision of Dr. So who was available but who did not see the patient. HPI: Patient is here today for reevaluation of {{left* right bilate ral}} hip pain. Has been evaluated by {{my colleague myself*}} and diagnosed with {{osteoarthritis* a labral tear}} of the hip. Here today for intra-articular hip injection. No new injury or symptom changes. Review of systems: As noted patient intake. Physical exam:The patient is well appearing and in no apparent distress. Alert and oriented x3. Gait is antalgic on the {{left* right bilate ral}}. Examination of the hip reveals no effusion, erythema, or warmth. No point tenderness over the greater trochanter. Forward flexion to 90. External rotation to 60 internal rotation to 0. + impingement, - straight leg raise. Calf soft and nontender. 5/5 strength with hip flexion/extension. Assessment: Osteoarthritis of the {{left* right bilate ral}} hip Plan: I explained the nature of the diagnosis with the patient and its treatment options both conservative and surgical. After a long discussion with the patient which included the risk and benefits of the procedure. The patient is interested in proceeding with intra-articular {{left* right bilate ral}} hip injection. After consent was obtained we proceeded with injection. Risks of the procedure were discussed with patient including worsening osteoarthritis, small risk to blood vessels and tendons and nerves.After consent was obtained from the patient. Under normal sterile fashion using chlorhexidine, under ultrasound guidance, neurovascular bundle was first identified and then 2 cc of 1% lidocaine 1 cc of 40 mg of Kenalog was injected intra-articularly into the patient's hip. Ultrasound documentation was saved into PACS. Patient tolerated procedure well. Demonstrated early local anesthetic benefit. Postprocedure protocol was discussed with the patient. Patient will contact with any questions or worsening symptoms. Follow-up {{as scheduled in 3 months*}} for re-evaluation, sooner if any difficulty. The patient understands and agrees with the plan. They know to call if they have any further questions or concerns regarding their symptoms, or to follow up sooner if needed. Miguel Germain PA-C [address], [place], [address], [facility] 11/01/2023 14:31:03 OBGyn Episode No OBEpisode recorded.
--- OUTSIDE RECORDS SUMMARY | 2024-12-11 08:08 | XMS_ITS | Encounter Summary ---
Author Organization [facility], Address [address] [place] [address] Phone Care Team Providers Care Pad Extractor Tender Name Role Phone Natty Sequeira NP Primary Care Provider [phone] Reason for Visit * Reason Comments Med Refill Encounter Details Date Type Department Care Team (Late st Contact Info) Description 08/09/2022 Refill [facility] [address] [place] [address] Eric Martínez MD [address] [place] [phone] Social History Tobacco Use Types Packs/Day Years [...] Visit [facility] - [facility] [address] [place] [address] documented as of this encounter Visit Diagnoses Not on filedocumented in this encounter Care Teams Pad Extractor Tender Relationship Specialty Start Date End Date Natty Sequeira NP [address] [place] [address] PCP - General Nurse Practitioner 09/03/21 documented as of this encounter
--- OUTSIDE RECORDS SUMMARY | 2024-12-11 08:09 | XMS_ITS | Patient Health Record ---
Author Organization [facility] Address [address] [place] [phone] Care Team Providers Care Rehab Liaison Name Role Phone Ethel Martinez Primary Care Provider Andre James Jr Unavailable Reason For Referral No Information Plan Of Treatment No Information Insurance Providers Payer Name Payer Address Payer Phone Subscriber Number Group Number Insured Name Patient Relationship to Insured Coverage Start Date Coverage End Date Aetna (No Referra l) [address] [place], [place] [id number] DANUTA SEARS Self - patient is the insured
--- OUTSIDE RECORDS SUMMARY | 2024-12-11 08:09 | XMS_ITS | Encounter Summary ---
Author Organization [facility], Address [address] [place] [address] Phone Care Team Providers Care Ripsaw Operator Name Role Phone Natty Sequeira NP Primary Care Provider [phone] Encounter Details Date Type Department Care Team (Late st Contact Info) Description 11/09/2023 Documentation Only [facility] [address] [place] [phone] [place] [address] [place] [address] Social History Tobacco Use Types Packs/Day [...] Visit [facility], - [facility] Center [address] [place] [phone] documented as of this encounter Visit Diagnoses Not on filedocumented in this encounter Care Teams Ripsaw Operator Relationship Specialty Start Date End Date Natty Sequeira NP [address] [place] [address] PCP - General Nurse Practitioner 09/03/21 documented as of this encounter
--- NOTE | 2024-12-11 08:52 | MHC.AU.HA3 ---
Hearing Instrument Follow-Up- Binaural Date of Visit: 12/11/24 Right Ear: Model Jerome, Color, Serial Number: Ninfa Pineda AI 1600 MIKEY-R SN: [id number] Site Specialist Repair Warranty: 10/13/2024 Site Specialist Loss and Damage Warranty: 10/13/2024 [facility] Service Plan: N/A Battery Size: Rechargeable Funeral Service Licensee/Slim Tube: 50g Earmold/Dome/CShell/SlimTip:5mm open dome with retention tail Type of Wax Guard: HearClear Dispensed By: Dandelion Date of Fitting: unknown, manfacturers sell date 06/2021 Left Ear: Model Jerome, Color, Serial Number: Ninfa Pineda AI 1600 MIKEY-R SN: [id number] Site Specialist Repair Warranty: 10/13/2024 Site Specialist Loss and Damage Warranty: 10/13/2024 [facility] Service Plan: N/A Battery Size: Rechargeable Funeral Service Licensee/Slim Tube: 50g Earmold/Dome/CShell/SlimTip: 5mm open dome with retention tail Type of Wax Guard: HearClear Dispensed By: Dandelion Date of Fitting: unknown, manfacturers sell date 06/2021 Follow-Up Summary: Scheduled for hearing test, noting for the past few months, not hearing as well with the HAs. Questioned change in hearing vs function of HAs. Visually occluding cerumen bilaterally, deferred hearing test until after cerumen removal by PCP. Also questioned if HAs charging properly, hearing battery warning notification after only wearing for a couple hours. Left LU missing microphone cover. Cleaned both HAs. Vacuumed microphones. Replaced harshal cover, wax guards, and domes. Listening check demonstrated HAs amplifying clearly. Rescheduled hearing test and LU reprogramming to 01/10/2025. Recommendations: Hearing instrument follow-up or maintenance as needed. Please contact our clinic with any questions or concerns. Diagnosis Code(s): Primary Diagnosis: H61.23 Impacted Cerumen, Bilateral Signature: Provider: George Clay, [facility]
== END 2024-12-11 08:04 | disposition home or self-care (01) ==
LOC: HO.SH 08:03
PROVIDERS: Visit Provider Internal Medicine
DX: Z01.118 Encounter for examination of ears and hearing with other abnormal findings (principal); H61.23 Impacted cerumen, bilateral
CPT/HCPCS: 92593; 99499

== ENCOUNTER 2025-01-24 08:19 | Outpatient (RCR) | payer MEDICARE, MEDICAID, SELFPAY | END 2025-02-11 16:08 | disposition home or self-care (01) | LOC: HO.WCC 08:19 | PROVIDERS: PCP Internal Medicine; Visit Provider Surgery | DX: E10.622 Type 1 diabetes mellitus with other skin ulcer (principal); L97.822 Non-pressure chronic ulcer of other part of left lower leg with fat layer exposed; R60.9 Edema, unspecified; E10.22 Type 1 diabetes mellitus with diabetic chronic kidney disease; E10.40 Type 1 diabetes mellitus with diabetic neuropathy, unspecified; I12.0 Hypertensive chronic kidney disease with stage 5 chronic kidney disease or end stage renal disease; N18.6 End stage renal disease; I25.2 Old myocardial infarction; I25.10 Atherosclerotic heart disease of native coronary artery without angina pectoris; Z99.2 Dependence on renal dialysis; Z79.01 Long term (current) use of anticoagulants; Z79.891 Long term (current) use of opiate analgesic; Z79.899 Other long term (current) drug therapy | CPT/HCPCS: 11042; 99213 ==

== ENCOUNTER 2025-04-09 09:07 | Outpatient (AMB) | payer MEDICARE, MEDICAID, SELFPAY ==
--- NOTE | 2025-04-09 09:25 | MHC.PC.OV ---
Vital Signs 04/09/25 09:26 BMI Reason not done Patient refused/unable BP 108/48 L Blood Pressure Location Lt brachial Position Sitting Respiration 14 Pulse 48 L Pulse Source Pulse Oximeter Temp 98.5 F Temp Source Oral Pulse Oximetry (%) 98 Oxygen Delivery Method Room Air Intake Visit Reasons: [facility] [place] [facility] Intake Note: Hospital follow up. A1c 6.0 on 04/03/25 at dialysis. Having right hip replacement on 05/21/25 Engraver Seals Required: No Allergies bee venom protein (honey bee) Allergy (Severe, Verified 04/09/25 09:26) Anaphylaxis codeine Allergy (Severe, Verified 04/09/25 09:26) stops breathing Penicillins Allergy (Severe, Verified 04/09/25 09:26) dyspnea Cephalosporins Allergy (Unknown, Verified 04/09/25 09:26) Unknown sulfamethoxazole (From Bactrim) Allergy (Unknown, Verified 04/09/25 09:26) vomiting and hives trimethoprim Allergy (Unknown, Verified 04/09/25 09:26) Unknown amlodipine (From Norvasc) Adverse Reaction (Severe, Verified 04/09/25 09:26) increased K+ hydrochlorothiazide Adverse Reaction (Severe, Verified 04/09/25 09:26) renal failure lisinopril Adverse Reaction (Severe, Verified 04/09/25 09:26) increased K+ polyethylene glycol Adverse Reaction (Severe, Verified 04/09/25 09:26) hives valsartan Adverse Reaction (Severe, Verified 04/09/25 09:26) renal failure polyethylene glycol 3350 (From Golytely) Adverse Reaction (Intermediate, Verified 04/09/25 09:26) Vomiting potassium chloride (From Golytely) Adverse Reaction (Intermediate, Verified 04/09/25 09:26) Vomiting sodium (From Golytely) Adverse Reaction (Intermediate, Verified 04/09/25 09:26) Vomiting sodium bicarbonate (From Golytely) Adverse Reaction (Intermediate, Verified 04/09/25 09:26) Vomiting sodium chloride (From Golytely) Adverse Reaction (Intermediate, Verified 04/09/25 09:26) Vomiting sodium sulfate (From Golytely) Adverse Reaction (Intermediate, Verified 04/09/25 09:26) Vomiting Sulfa (Sulfonamide Antibiotics) Adverse Reaction (Intermediate, Verified 04/09/25 09:26) n/v contrast dye Allergy (Unknown, Uncoded 04/09/25 09:26) hives and vomiting Tobacco use date assessed: 04/09/25 Dental Screening Dental Screen Date: 12/01/23 HPI HPI Comments History of Present Illness Details The patient is a 74 year old female with past medical history of htn, hld, diabetes, hypothyroid, osteoarthritis, migraines, CKD on HD, uterine cancer, sinusitis presenting for hospital follow up Patient was recently admitted to [facility] -weakness, chairlift broken at home evaluation for rehab placement. She was having irregular heart beats-they stopped metoprolol. Her blood glucose was low-her daily insulin was decreased. Her dexcom numbers have been 60-70 points above her fingersticks. Diabetes: On basaglar this was recently decreased from 25 to 15 units at 10pm, fiasp TID sliding scale. Neuropathy on lyrica 25mg TID, endocet. Increased right hand numbness pain. Had imaging with [facility]. She was told her cervical spine DDD was advaces Renal: ESRD on HD at [facility] MWF: on sevelamer, calcium acetate. Follows with Dr Millard CV: Follow with cardiology, [facility]. On torsemide on NON dialysis days. Neuro: Migraines, peripheral neuropathy, ataxia MSK: Chronic polyarthralgia. osteoarthritis. On endocet 10/325mg 1 tab q4h. She has tried PT injections, in the past. Scheduled for right hip replacement May 21 Dr Boland. Needs left hip thereafter. Known OA in b/l knees. Pain medications originally were coming through nephrology Endocrine: on levothyroxine 137mcg daily ROS see HPI PHYSICAL EXAM: GENERAL: Alert and oriented x 3. NAD EYES: EOMI. Anicteric. HENT: Moist mucous membranes. No scleral icterus. No cervical lymphadenopathy. LUNGS: Clear to auscultation bilaterally. CARDIOVASCULAR: Regular rate and rhythm. No murmur. No JVD. ABDOMEN: Soft, non-tender +bs EXTREMITIES: Chronic venous changes, mild edema SKIN: No rashes or lesions. Warm. NEUROLOGIC: No focal neurological deficits. CN II-XII grossly intact PSYCHIATRIC: Cooperative. Appropriate mood and affect [facility] Social History Housing: House Patient Tobacco Use Status: Never used Tobacco e-Cigarette/Vaping Use: Never Used Second Hand Smoke Exposure: No Substance Use Type: Marijuana service: No Current occupational status: retired Cognitive needs: No Hearing needs: No Vision needs: Yes (glasses ) Questionnaire Thrive Questionnaire Date Thrive assessed: 09/22/24 I am a: Patient What is your living situation today?: I have a steady place to live Within the past 12 months, did the food you bought not last and you didn't have the money to get more?: Never true Within the past 12 months, did you worry whether your food would run out before you got money to buy more?: Never true Do you have trouble paying for medicines?: No Do you have trouble getting transportation to medical appointments?: No Do you have trouble paying your heating and electricity bill?: No Do you have trouble taking care of your child, family member or friend?: No Do you have trouble with day-to-day activities such as bathing, preparing meals, shopping, managing finances, etc.?: Yes Are you currently unemployed and looking for a job?: No Are you interested in more education?: No Please select the resources that you would like help with: None Currently or been in a relationship where the following occur: No concerns reported THRIVE Score: 0 AUDIT C Alcohol Use Questionnaire (AUDIT-C) 3. How often do you have six or more drinks on one occasion?: Never Total Score: 0 EDIN-7 AMB Questionnaire EDIN-7 Date EDIN - 7 assessed: 12/01/23 Source: Developed by Drs. Eagle Neil, Leticia Vásquez, Kwadwo Garcia and colleagues, with an educational antonietta from [employer]. Physical exam (Primary Care) Vital Signs: Last Vital Signs Temp 98.5 F 04/09/25 09:26 Pulse 48 L 04/09/25 09:26 Resp 14 04/09/25 09:26 BP 108/48 L 04/09/25 09:26 Pulse Ox 98 04/09/25 09:26 Oxygen Delivery Method Room Air 04/09/25 09:26 Tobacco/Smoking Status: Tobacco use Status Tobacco use date assessed 04/09/25 04/09/25 09:32 Patient Tobacco Use Status Never used Tobacco 04/09/25 09:32 e-Cigarette/Vaping Use Never Used 04/09/25 09:32 Thrive Assessment: Date of Thrive Assessment Date Thrive assessed 09/22/24 04/09/25 09:32 Currently or been in a relationship where the following occur: No concerns reported Coding Level of Care Code Est Pt Level 4 (91825) Diagnoses Hospital discharge follow-up Z09 Assessment & Plan Assessment & Plan (1) Hospital discharge follow-up: Code(s): Z09 - Encounter for follow-up examination after completed treatment for conditions other than malignant neoplasm Category: Medical Plan 74 year old female for hospital follow up Hospital course reviewed DM-well controlled. Dose changes as noted Neck pain-advanced DDD. Increased radicular symptoms. refer ortho MSK-Upcoming hip replacement. Neck referral as above. Hypothyroid-stable on levothyroxine ESRD-continue dialysis Orders: Referrals Orthopedics Referral M47.812 - Spondylosis without myelopathy or radiculopathy, cervical region Medications: New lidocaine-prilocaine 2.5-2.5 % thick layer topical hands prn pain 1 appl topical DAILY PRN 30 grams 1RF pain Changed From insulin degludec for blood sugar 150-220 take 25 units, for blood sugar over 220 take 30 units, at bedtime 25 units (0.25 mL) subcut BEDTIME 90 days 27 mL 0RF To insulin degludec 15 units (0.15 mL) subcut BEDTIME 15 mL 3RF 90 days Refilled FreeStyle Lite Strips (blood sugar diagnostic) Check BG four times daily 400 ea 3RF NS Discontinued doxycycline hyclate Discontinued Reason: Doctor's Order 100 mg PO BID 20 tabs 0RF metoprolol tartrate Discontinued Reason: Doctor's Order 25 mg PO DAILY 90 tabs 1RF
[2025-04-09 09:26] VITALS: BP 108/48; PULSE 48; RESP 14; TEMP 36.9; O2SAT 98
--- OUTSIDE RECORDS SUMMARY | 2025-04-09 11:27 | XMS_ITS | Encounter Summary ---
Author Organization [facility], Address [address] [place] [address] Phone Care Team Providers Care Facility Supervisor Name Role Phone Natty Sequeira NP Primary Care Provider [phone] Reason for Visit * Reason Comments Med Refill Encounter Details Date Type Department Care Team (Late st Contact Info) Description 12/30/2020 Refill [facility] [address] [place] [address] Frank Krishnamurthy MD Social History [...] Visit [facility] - [facility] Center [address] [place] [address] documented as of this encounter Visit Diagnoses Not on filedocumented in this encounter Care Teams Facility Supervisor Relationship Specialty Start Date End Date Natty Sequeira NP [address] [place] [address] PCP - General Nurse Practitioner 09/03/21 documented as of this encounter
--- OUTSIDE RECORDS SUMMARY | 2025-04-09 11:27 | XMS_ITS | Encounter Summary ---
Author Organization [facility], Address [address] [place] [address] Phone Care Team Providers Care Fine Arts Teacher Name Role Phone Natty Sequeira NP Primary Care Provider [phone] Encounter Details Date Type Department Care Team (Late st Contact Info) Description 11/09/2023 Documentation Only [facility] [address] [place] [phone] [place] [address] [place] [phone] Social History Tobacco Use Types Packs/Day [...] Visit [facility], - Vascular Access Center [address] [place] [phone] documented as of this encounter Visit Diagnoses Not on filedocumented in this encounter Care Teams Fine Arts Teacher Relationship Specialty Start Date End Date Natty Sequeira NP [address] [place] [address] PCP - General Nurse Practitioner 09/03/21 documented as of this encounter
--- OUTSIDE RECORDS SUMMARY | 2025-04-09 11:27 | XMS_ITS | Patient Health Record ---
Author Organization [facility] Address [address] [place] [address] Care Team Providers Care Stringed Instrument Assembler Name Role Phone Ethel Martinez Primary Care Provider Andre James Jr Unavailable Reason For Referral No Information Plan Of Treatment No Information Insurance Providers Payer Name Payer Address Payer Phone Subscriber Number Group Number Insured Name Patient Relationship to Insured Coverage Start Date Coverage End Date Aetna (No Referra l) [address] [place], [place] [id number] DANUTA SEARS Self - patient is the insured
--- OUTSIDE RECORDS SUMMARY | 2025-04-09 11:27 | XMS_ITS | Encounter Summary ---
Author Organization [facility] Address [address] [place] [address] Phone Care Team Providers Care Pharmacy Informaticist Name Role Phone Ethel Martinez MD Primary Care Provider + Carlee Rodríguez MD Primary Care Provider [phone] Encounter Details Date Type Department Care Team (Late st Contact Info) Description 11/20/2020 Ancillary Orders [facility],Outside Imaging [address] [place] [address] System, Provider Not In, PhD [address] [address] Social History Tobacco Use Types Packs/Day Years Used Date Smoking Tobacco: Never Assessed Comments Unknown Sex and Gender Information Value Date Recorded Sex Assigned at Female 09/02/2022 9:52 AM EST Legal Sex Female 9:11 AM EDT Gender Identity Female 09/02/2022 9:49 AM EST Sexual Orientation Straight 09/02/2022 9: 52 AM EST documented as of this encounter Plan of Treatment Not on file documented as of this encounter Results * MRI Lower Extremity Outside (No Interpretation) (10/13/2020 12:00 AM EDT) Narrative SYSTEMGENERATED, DOCUMENTATION - 11/20/2020 2:04 PM EDT This study is for PACS storage only and not for interpretation. us Provider Not In System PhD IMG OUTSIDE IMAGING W /OUT INTERPRETATION Final Result documented in this encounter Visit Diagnoses Not on filedocumented in this encounter Care Teams Pharmacy Informaticist Relationship Specialty Start Date End Date Ethel Martinez MD [email or web address] PCP - General Family Medicine 11/10/20 09/01/22 Carlee Rodríguez MD PCP - General Internal Medicine 09/02/22 documented as of this encounter Additional Source Comments The information contained in this document represents components of the legal health record. It is not the complete legal health record.[facility]
--- OUTSIDE RECORDS SUMMARY | 2025-04-09 11:27 | XMS_ITS | Encounter Summary ---
Author Organization [facility], Address [address] [place] [address] Phone Care Team Providers Care Commercial Food Instructor Name Role Phone Natty Sequeira JOSE MARIA Primary Care Provider Encounter Details Date Type Department Care Team (Late st Contact Info) Description 04/03/2025 Treatment [facility], [address] [place] [phone] Stephanie Millard MD [address] [place], [place] [address]K[place] [phone] End stage renal disease; Dependence on renal dialysis Social History Tobacco Use Types Packs/Day Years Used Date Smoking Tobacco: Never Smokeless Tobacco: Never Alcohol Use Standard Drinks/Week Comments Not Currently 0 (1 standard drink = 0.6 oz pur e alcohol) Comments Unknown Sex and Gender Information Value Date Recorded Sex Assigned at Not on file Legal Sex Female 4:33 PM EST Gender Identity Not on file Sexual Orientation Not on file documented as of this encounter Miscellaneous Notes * Dialysis Note - Stephanie Millard MD - 04/03/2025 12:00 AM EDT Patient: Kathleen Mendez : 1950 [facility]: [facility] Note Type: Dialysis Rounds-Comp Service Date: 04/03/2025 This patient was personally seen [id number] for a complete visit as part of routine monthly dialysis care for end stage renal disease. Attending Operation Research Analyst: STEPHANIE MILLARD Dialysis Location: [facility] Schedule: M-W-F Shift: 2 OVERVIEW Patient is stable. COMMENTS: leg wounds healing HOME MEDICATIONS Medications reviewed. COMMENTS: patient to bring all medications in to review after recent hospitalization Current [facility] Outpatient Medications acetaminophen (TYLENOL) tablet Take 975 mg by mouth Start Date: 03/08/2023 allopurinol (ZYLOPRIM) tablet Take 1 tablet by mouth 1 (one) time each day Start Date: 11/22/2023 amLODIPine (NORVASC) tablet Start Date: 05/31/2024 apixaban (ELIQUIS) tablet Take 5 mg by mouth in the morning and 5 mg in the evening. Start Date: atorvastatin (LIPITOR) 80 MG tablet Take 1 tablet (80 mg total) by mouth daily Start Date: 08/14/2020 azithromycin (ZITHROMAX) tablet Take 250 mg by mouth 1 (one) time each day X 4 days Start Date: BIOTIN 10 MG PO CAPS Take 2 capsules by oral route. Start Date: CALCIUM ACETATE (PHOS BINDER) 667 MG PO CAPS Take 1 capsule by mouth in the morning and 1 capsule at noon and 1 capsule in the evening. Take with meals. Start Date: BX-YHALKLEVUQDIC-OYECIKMCUWRAR 10-5-325 MG PO CAPS Take 10 mL by mouth Start Date: 04/24/2024 doxycycline (VIBRA-TABS) tablet 100 mg Take 1 tablet by mouth in the morning and 1 tablet in the evening. Start Date: FERRIC CITRATE 1 GM 210 MG(FE) PO TABS Take by mouth Start Date: FIASP PENFILL 100 UNIT/ML SC SOCT Start Date: INSULIN DEGLUDEC FLEXTOUCH 100 UNIT/ML SC SOPN Start Date: 11/12/2024 INSULIN LISPRO 100 UNIT/ML IJ SOLN Inject under the skin Start Date: 04/24/2024 ipratropium-albuterol (DUO-NEB) nebulizer solution 0.5-2.5 mg/3 mL Take 3 mL by nebulization every 4 (four) hours if needed Start Date: 04/24/2024 levothyroxine (SYNTHROID, LEVOTHROID) tablet levothyroxine 137 mcg tablet Start Date: 02/06/2021 LOKELMA 10 G PO PACK Take by mouth Start Date: losartan (COZAAR) tablet 1 tablet DIRECTED (route: oral) Start Date: 11/23/2022 melatonin tablet Take 5 mg by mouth Start Date: 07/08/2022 metoprolol tartrate 25 MG tablet Take 1 tablet (25 mg total) by mouth in the morning. Start Date: 03/01/2024 NEPHROCAPS PO Take 1 capsule by mouth Start Date: 10/17/2020 NIFEdipine XL (PROCARDIA XL) 30 MG 24 hr tablet Take 1 tablet by mouth every other day. Non dialysis days. Start Date: 01/28/2025 NURTEC 75 MG PO TBDP DISSOLVE 1 TABLET ON THE TONGUE EVERY 24 HOURS NEEDED FOR MIGRAINE HEADACHE. NOT TO EXCEED 75 MG IN 24 HOURS Start Date: 02/21/2024 nystatin (MYCOSTATIN) powder APPLY TWICE A DAY Start Date: 08/08/2020 oxyCODONE-acetaminophen (PERCOCET) 10-325 MG per tablet Take 1 tablet by mouth every 4 (four) hours if needed for moderate pain Start Date: 05/02/2024 pramipexole (MIRAPEX) 0.25 MG tablet Take 1 tablet (0.25 mg total) by mouth daily Start Date: 08/14/2020 pregabalin (LYRICA) capsule Take 1 capsule by mouth in the morning and 1 capsule at noon and 1 capsule in the evening. Start Date: PROBIOTIC ADVANCED PO Start Date: RIBOFLAVIN 400 MG PO TABS Take 1 tablet by mouth 1 (one) time each day Start Date: sevelamer (RENAGEL) tablet Take 2,400 mg by mouth in the morning and 2,400 mg at noon and 2,400 mg in the evening. Take with meals. Start Date: 10/27/2021 torsemide (Demadex) 20 MG tablet Take 2 tablets (40 mg total) by mouth 1 (one) time each day Start Date: 08/18/2020 Current [facility] Allergies Allergen: BEE VENOM Reaction: Anaphylaxis Severity: High Allergen: CEPHALOSPORINS Reaction: Other (see comments) Severity: Low Allergen: CLONIDINE Reaction: Other (see comments) Severity: Low Allergen: CODEINE Reaction: Anaphylaxis Severity: High Allergen: CONTRAST [IODINATED CONTRAST MEDIA] Reaction: Hives Vomiting Severity: High High Allergen: HYDROCHLOROTHIAZIDE Reaction: Other (see comments) Severity: High Allergen: HYDROCHLOROTHIAZIDE-TRIAMTERENE Allergen: LISINOPRIL Reaction: Other (see comments) Severity: High Allergen: NORVASC [AMLODIPINE] Reaction: Other (see comments) Severity: High Allergen: PEG [id number]-NASULF Reaction: Other (see comments) Severity: Low Allergen: PENICILLINS Reaction: Hives Shortness of breath Severity: High High Allergen: POLYETHYLENE GLYCOL Reaction: Other (see comments) Severity: Low Allergen: SODIUM SULFATE Reaction: Other (see comments) Severity: Low Allergen: SULFA ANTIBIOTICS Reaction: Other (see comments) Severity: Low Allergen: SULFAMETHOXAZOLE-TRIMETHOPRIM Reaction: Other (see comments) Severity: High Allergen: TRIAMTERENE Reaction: Other (see comments) Severity: Low Allergen: TRIMETHOPRIM Reaction: Other (see comments) Severity: High Allergen: VALSARTAN Reaction: Other (see comments) Severity: Low BP AND FLUID ASSESSMENT Acceptable blood pressure. Fluid status acceptable. ADEQUACY ASSESSMENT Target met. Counseled patient regarding prescription compliance. COMMENTS: patient with history of missing treatments due to many different somatic complaints ACCESS ASSESSMENT Current Access: AVF Vascular access examined. AVF/AVG positive thrill/bruit. Current access is permanent and functioning well. ANEMIA ASSESSMENT Anemia targets met. LILIYA adjusted per protocol. Iron adjusted per protocol. BMM ASSESSMENT PTH elevated. Hyperphosphatemia noted. Calcium controlled. Bone and mineral metabolism parameters reviewed. NUTRITION ASSESSMENT Potassium 5.4 4/09/18 Albumin not at goal. Potassium controlled. TRANSPLANT STATUS COMMENT COMMENTS: currently not a candidate; weight and comorbids along with compliance issues PHYSICAL EXAM Exam performed. Vital Signs Reviewed. 1+ edema. COMMENTS: redness in anterior lower legs without overt cellulitis ADDITIONAL COMMENT COMMENTS: 04/03/25: stable treatment; most recent labs reviewed; recent events and active issues noted and discussed with charge nurse. Awaiting orthopedic surgery. 03/08/25: Stable treatment. Recent labs and occasions reviewed. Active issues and recent events noted. Discussed with the charge nurse and reviewed with patient at chair side. Changes in treatment made accordingly. Going to hospital for eval for rehab. 03/04/2025: labs and meds noted; recent events and active issues reviewed; parameters noted within the range of current protocols and goals care; adjustments in dialysis made accordingly. A1c remains high; awaiting ortho surgery if she can get her diabetes under control; leg wound healed; still with large weight gains and at risk for further skin breakdown and leg wounds. 02/11/25: stable treatment; awaiting orthopedic surgery; leg wounds healed and edema improved 01/28/25: available data reviewed; meds noted; recent events and active issues discussed with patient and charge nurse; changes in treatment made according to patient evaluation, nurse input, data, and current goals and guidelines. Overall, stable treatment. Continues with healing wounds on legs; left ? right; awaiting ortho follow up. 01/02/25: compliance remains an issue; volume overload ongoing with severe edema in lower extremities causing skin breakdown and wounds; I urged patient to make it to scheduled and extra treatments as needed; reduce fluid and sodium intake. 11/19/24: weight still an issue with ongoing edema; dietary issues ongoing. Discussed at length; annual giving manager to discuss further. 10/31/24: available data reviewed; meds noted; recent events and active issues discussed with patient and charge nurse; changes in treatment made according to patient evaluation, nurse input, data, and current goals and guidelines. Overall, stable treatment. Monitor BP for now; get to dry weight; may need med adjustment. 09/17/24: stable treatment. Continues with compliance issues; legs weeping; very little insight with regard to fluid gains, etc. She wants to go back on Torsemide...so be it. I explained that there is minimal utility as her urine output is very low. 09/05/24: Recent labs reviewed. Active issues and recent events discussed with charge nurse. Orders noted. Adjustments in treatment made according to goals of care, clinical guidelines, and patient assessment. Overall, stable treatment. Continue to encourage compliance with fluids/sodium/treatments. 08/06/24: Recent labs reviewed. Active issues and recent events discussed with charge nurse. Orders noted. Adjustments in treatment made according to goals of care, clinical guidelines, and patient assessment. Overall, stable treatment. Continue to encourage compliance with fluids/sodium/treatments. 07/11/24: massive LE edema; claims to be not drinking or eating much; will come for extra treatment 07/12; advised to limit fluid and sodium intake. 06/25/24: Overall, clinically stable. Recent events and active issues reviewed. Available data including the most recent labs and active medication list were noted. The patient's case was discussed with the charge nurse and changes in prescription made accordingly. Large weight gain; will need to limit fluid intake and be more compliant with treatments; discussed with patient. 06/04/24: available meds and labs reviewed; patient seen and evaluated with the charge nurse; changes made according to clinical status and acute issues. 05/02/24: as above; BP meds adjusted; monitor and adjust EDW. 04/25/24: Recent data reviewed. Medications reviewed. Dialysis prescription reviewed. Discussed recent events and active issues with the patient and charge nurse. Appropriate changes in regimen including in center medications and treatment made accordingly. Appears ill after hospitalization; weight down; continue to adjust EDW according to volume status and BP. Signed by: STEPHANIE MILLARD MD on 04/04/2025 at 09:33:08 AM Transcribed by: STEPHANIE MILLARD MD on 04/04/2025 at 09:33:08 AM documented in this encounter Plan of Treatment Upcoming Encounters Date Type Department Care Team (Late st Contact Info) Description 10/03/2025 11:00 AM EDT Office Visit [facility] [address] [address] documented as of this encounter Visit Diagnoses Diagnosis End stage renal disease Dependence on renal dialysis documented in this encounter Care Teams Commercial Food Instructor Relationship Specialty Start Date End Date Natty Sequeira NP [address] [place] [id number] PCP - General Nurse Practitioner 09/03/21 documented as of this encounter
--- OUTSIDE RECORDS SUMMARY | 2025-04-09 11:27 | XMS_ITS | Encounter Summary ---
Author Organization [facility] Address [address] [place] [address] Care Team Providers Care Plaster Foreman Name Role Phone Carlee Turner MD Primary Care Provider [phone] Encounter Details Date Type Department Care Team (Latest Contact Info) Description 03/14/2025 Lab Requisition [facility] - Main Lab [address] [facility] [place] [address] Rosy Spring MD [address] [place] [id number] Unspecified atrial fibrillation ([facility]/HCC V24, CMS/HCC V28); Essential (primary) hypertension; End stage renal disease (CMS/HCC V24, CMS/HCC V28); Type 2 diabetes mellitus without complications ([facility]/HCC V24, CMS/HCC V28); Hypothyroidism, unspecified Social History Tobacco Use Types Packs/Day Years Used Date Smoking Tobacco: Never Smokeless Tobacco: Current Alcohol Use Standard Drinks/Week Comments Never 0 (1 standard drink = 0.6 oz pur e alcohol) Comments Unknown Sex and Gender Information Value Date Recorded Sex Assigned at Not on file Legal Sex Female 6:17 AM EST Gender Identity Not on file Sexual Orientation Not on file documented as of this encounter Plan of Treatment Not on file documented as of this encounter Procedures Procedure Name Priority Date/Time Associated Diagnosis Comments THYROID STIMULATING HORMONE WITH REFLEX TO FREE T4 AND FREE T3 Routine 03/14/2025 4:59 AM EDT Unspecified atrial fibrillation (CMS/HCC V24, CMS/HCC V28) Essential (primary) hypertension End stage renal disease (CMS/[facility] V24, CMS/[facility] V28) Type 2 diabetes mellitus without complications (CMS/HCC V24, CMS/HCC V28) Hypothyroidism, unspecified COMPLETE BLOOD COUNT Routine 03/14/2025 4:59 AM EDT Unspecified atrial fibrillation ([facility] V24, [facility]/HCC V28) Essential (primary) hypertension End stage renal disease ([facility]/HCC V24, CMS/HCC V28) Type 2 diabetes mellitus without complications (CMS/HCC V24, CMS/HCC V28) Hypothyroidism, unspecified HEMOGLOBIN A1C Routine 03/14/2025 4:59 AM EDT Unspecified atrial fibrillation (CMS/HCC V24, CMS/HCC V28) Essential (primary) hypertension End stage renal disease (CMS/HCC V24, CMS/HCC V28) Type 2 diabetes mellitus without complications (CMS/HCC V24, CMS/HCC V28) Hypothyroidism, unspecified BASIC METABOLIC PANEL Routine 03/14/2025 4:59 AM EDT Unspecified atrial fibrillation ([facility]/HCC V24, CMS/HCC V28) Essential (primary) hypertension End stage renal disease ([facility]/HCC V24, CMS/HCC V28) Type 2 diabetes mellitus without complications (CMS/HCC V24, CMS/HCC V28) Hypothyroidism, unspecified documented in this encounter Results * Thyroid stimulating hormone with reflex to free t4 and free t3 (03/14/2025 4:59 AM EDT) TSH 1.69 0.40 - 4.00 mcIU/mL LAB CHEMISTRY METHOD 03/14/2025 10:[address] [facility] Blood Venous blood specimen / Unknown Venipuncture / Unknown 03/14/2025 4:59 AM EDT 03/14/2025 8:08 AM EDT us Rosy Spring MD LAB BLOOD ORDERABLES Final Resu lt [facility] [address] [place] [address], [place] [phone] * (ABNORMAL) Hemoglobin A1c (03/14/2025 4:59 AM EDT) [facility] Hemoglobin A1C 7.1(H) <6.5 % LAB CHEMISTRY METHOD 03/14/2025 10:[address] [facility] Mean Bld Glu Estim. 157 mg/dL LAB CHEMISTRY METHOD 03/14/2025 10:[address] [facility] Blood Venous blood specimen / Unknown Venipuncture / Unknown 03/14/2025 4:59 AM EDT 03/14/2025 8:08 AM EDT us Rosy Spring MD LAB BLOOD ORDERABLES Final Resu lt [facility] [address] [place] [address], * (ABNORMAL) Basic metabolic panel (03/14/2025 4:59 AM EDT) [facility] Sodium 131(L) 133 - 145 mmol/L LAB CHEMISTRY METHOD 03/14/2025 9:42 AM [facility] Potassium 5.1 3.5 - 5.5 mmol/L LAB CHEMISTRY METHOD 03/14/2025 9:42 AM [facility] Chloride 95(L) 96 - 110 mmol/L LAB CHEMISTRY METHOD 03/14/2025 9:42 AM [facility] CO2 30 21 - 32 mmol/L LAB CHEMISTRY METHOD 03/14/2025 9:42 AM [facility] Anion Gap 6 3 - 11 LAB CHEMISTRY METHOD 03/14/2025 9:42 AM [facility] Glucose 93 70 - 100 mg/dL LAB CHEMISTRY METHOD 03/14/2025 9:42 AM [facility] BUN 41(H) 5 - 25 mg/dL LAB CHEMISTRY METHOD 03/14/2025 9:[address] [facility] Comment:Results verified by repeat testing Creatinine 5.16(H) 0.50 - 1.10 mg/dL LAB CHEMISTRY METHOD 03/14/2025 9:[address] [facility] Comment:Results verified by repeat testing eGFR 8(L) >=60 mL/min/1. 73m2 LAB CHEMISTRY METHOD 03/14/2025 9:[address] [facility] Comment:Calculation based on the Chronic Kidney Disease Epidemiology Collaboration (CKD-EPI) equation refit without adjustment for race. BUN/Creatinine Ratio 7.9 LAB CHEMISTRY METHOD 03/14/2025 9:42 AM [facility] Calcium 9.2 8.5 - 10.5 mg/dL LAB CHEMISTRY METHOD 03/14/2025 9:42 AM [facility] Blood Venous blood specimen / Unknown Venipuncture / Unknown 03/14/2025 4:59 AM EDT 03/14/2025 8:08 AM EDT us Rosy Spring MD LAB BLOOD ORDERABLES Final Resu lt [facility] [address] [place] [address], * (ABNORMAL) Complete blood count (03/14/2025 4:59 AM EDT) WBC 5.9 4.8 - 10.8 K/mcL LAB HEMETOLOGY METHOD 03/14/2025 8:[address] [facility] RBC 3.40(L) 3.80 - 4.80 M/mcL LAB HEMETOLOGY METHOD 03/14/2025 8:[address] [facility] Hemoglobin 10.5(L) 11.5 - 16.0 g/dL LAB HEMETOLOGY METHOD 03/14/2025 8:[address] [facility] Hematocrit 33.4(L) 35.0 - 47.0 % LAB HEMETOLOGY METHOD 03/14/2025 8:[address] [facility] MCV 98.8(H) 79.0 - 98.0 FL LAB HEMETOLOGY METHOD 03/14/2025 8:[address] [facility] MCH 31.1 27.0 - 32.0 pcg LAB HEMETOLOGY METHOD 03/14/2025 8:[address] [facility] MCHC 31.4(L) 32.0 - 37.0 g/dL LAB HEMETOLOGY METHOD 03/14/2025 8:[address] [facility] RDW 15.4(H) 11.0 - 15.0 % LAB HEMETOLOGY METHOD 03/14/2025 8:[address] [facility] Platelets 155 130 - 400 K/mcL LAB HEMETOLOGY METHOD 03/14/2025 8:[address] [facility] MPV 11.4(H) 7.0 - 11.0 FL LAB HEMETOLOGY METHOD 03/14/2025 8:[address] [facility] NRBC 0.0 <1.0 % LAB HEMETOLOGY METHOD 03/14/2025 8:[address] [facility] NRBC Absolute 0.00 <0.10 K/mcL LAB HEMETOLOGY METHOD 03/14/2025 8:[address] [facility] Blood Venous blood specimen / Unknown Venipuncture / Unknown 03/14/2025 4:59 AM EDT 03/14/2025 8:08 AM EDT us Rosy Spring MD LAB BLOOD ORDERABLES Final Resu lt [facility] [address] [place] [address], documented in this encounter Visit Diagnoses Diagnosis Unspecified atrial fibrillation (CMS/HCC V24, [facility] V28) Essential (primary) hypertension Unspecified essential hypertension End stage renal disease ([facility] V24, [facility] V28) End stage renal disease Type 2 diabetes mellitus without complications ([facility] V24, [facility] V28) Hypothyroidism, unspecified documented in this encounter Care Teams Plaster Foreman Relationship Specialty Start Date End Date Carlee Turner MD [address] [place] [address] PCP - General Internal Medicine 01/07/25 documented as of this encounter
--- OUTSIDE RECORDS SUMMARY | 2025-04-09 11:27 | XMS_ITS | Encounter Summary ---
Author Organization [facility], Address [address] [place] [address] Phone Care Team Providers Care Customer Support Associate Name Role Phone Natty Sequeira NP Primary Care Provider [phone] Reason for Visit * Reason Comments Med Refill Encounter Details Date Type Department Care Team (Late st Contact Info) Description 12/26/2020 Refill [facility] [address] [place] [address] Frank Krishnamurthy MD Social History [...] Visit [facility] [address] [place] [address] documented as of this encounter Visit Diagnoses Not on filedocumented in this encounter Care Teams Customer Support Associate Relationship Specialty Start Date End Date Natty Sequeira NP [address] [place] [address] PCP - General Nurse Practitioner 09/03/21 documented as of this encounter
--- OUTSIDE RECORDS SUMMARY | 2025-04-09 11:27 | XMS_ITS | Encounter Summary ---
Author Organization [facility], Address [address] [place] [address] Phone Care Team Providers Care Archaeology Professor Name Role Phone Natty Sequeira NP Primary Care Provider [phone] Reason for Visit * Reason Comments Med Refill Encounter Details Date Type Department Care Team (Late st Contact Info) Description 10/30/2020 Refill [facility] [address] [place] [address] Frank Krishnamurthy MD Social History [...] Visit [facility] [address] [place] [phone] documented as of this encounter Visit Diagnoses Not on filedocumented in this encounter Care Teams Archaeology Professor Relationship Specialty Start Date End Date Natty Sequeira NP [address] [place] [address] PCP - General Nurse Practitioner 09/03/21 documented as of this encounter
--- OUTSIDE RECORDS SUMMARY | 2025-04-09 11:27 | XMS_ITS | Encounter Summary ---
Author Organization [facility], Address [address] [place] [address] Phone Care Team Providers Care Model Dresser Name Role Phone Natty Sequeira APPRENTICE STYLIST Primary Care Provider [phone] Reason for Visit * Reason Comments Med Refill Encounter Details Date Type Department Care Team (Late st Contact Info) Description 10/06/2019 Refill [facility] [address] [place] [address] Frank Krishnamurthy MD Social History [...] Visit [facility] [address] [place] [address] [place] [address] documented as of this encounter Visit Diagnoses Not on filedocumented in this encounter Care Teams Model Dresser Relationship Specialty Start Date End Date Natty Sequeira NP [address] [place] [address] PCP - General Nurse Practitioner 09/03/21 documented as of this encounter
--- OUTSIDE RECORDS SUMMARY | 2025-04-09 11:27 | XMS_ITS | Encounter Summary ---
Author Organization [facility], Address [address] [place] [address] Phone Care Team Providers Care Academic Advisor Name Role Phone Natty Sequeira NP Primary Care Provider [phone] Encounter Details Date Type Department Care Team (Late st Contact Info) Description 08/15/2023 Documentation Only [facility] [address] [place] [phone] [place] [address] [place] [address] Social History Tobacco Use Types Packs/Day [...] Visit [facility] - [facility] Center [address] [place] [phone] documented as of this encounter Visit Diagnoses Not on filedocumented in this encounter Care Teams Academic Advisor Relationship Specialty Start Date End Date Natty Sequeira NP [address] [place] [address] PCP - General Nurse Practitioner 09/03/21 documented as of this encounter
--- OUTSIDE RECORDS SUMMARY | 2025-04-09 11:27 | XMS_ITS | Clinical Summary ---
Author Organization [facility] Address [address] [place] [phone] Phone Care Team Providers Care Credit Charge Authorizer Name Role Phone Carlee Turner MD Primary Care Provider [phone] Allergies Active Allergy Reactions Criticality Noted Date Comments Allergen Mgh-Mwlaj-Bbclz Bee Anaphylaxis High 2024 Amlodipine Swelling 01/07/2025 Cephalosporins Unknown 01/07/2025 Codeine 01/07/2025 Peg 3350-Electrolytes Hives,Nausea And Vomiting 01/07/2025 Hydrochlorothiazide Unknown 01/07/2025 Iodinated Contrast Media Hives,Nausea An d Vomiting 01/07/2025 Lisinopril Unknown 01/07/2025 Penicillin G Unknown 01/07/2025 Penicillins Unknown 01/07/2025 Polyethylene Glycol Unknown 01/07/2025 Sodium Sulfate Unknown 01/07/2025 Sulfa (Sulfonamide Antibiotics) Unknown 12/23 Sulfamethoxazole-Trimethoprim Unknown 2024 Trimethoprim Unknown 01/07/2025 Medications No known medications Encounters Date Type Department Care Team Description 03/29/2025 Lab Requisition [facility] [address] [place] [address] Rosy Spring MD Unspecified atrial fibrillation (CMS/HCC V24, CMS/HCC V28); Essential (primary) hypertension; End stage renal disease (CMS/HCC V24, CMS/[facility] V28) 03/25/2025 Lab Requisition [facility] [address] [place] [address] Rosy Spring MD Anemia in other chronic diseases classified elsewhere 03/22/2025 Lab Requisition [facility] [address] [place] [address] Rosy Spring MD Unspecified atrial fibrillation ([facility] [place], [facility] V28); Essential (primary) hypertension; End stage renal disease ([facility] [place], [facility] V28) 03/15/2025 Lab Requisition [facility] [address] [place] [address] Rosy Spring MD Unspecified atrial fibrillation ([facility] [place], [facility] [place]28); Essential (primary) hypertension; End stage renal disease ([facility] [place], [facility] [place]28) 03/14/2025 Lab Requisition [facility] [address] [place] [id number] Rosy Spring MD Unspecified atrial fibrillation ([facility] [place], [facility] V28); Essential (primary) hypertension; End stage renal disease ([facility] [place], [facility] [place]28); Type 2 diabetes mellitus without complications ([facility] [place], [facility] V28); Hypothyroidism, unspecified 01/07/2025 7:46 PM EDT - 01/08/2025 12:24 AM EDT Emergency [facility] [address] [place] [address] Pain of left lower extremity (Primary Dx) Discharge Disposition: Home or Self Care from Last 3 Months Surgical History Surgery Date Site/Laterality Comments AV FISTULA PLACEMENT Medical History Medical History Date Comments HTN (hypertension) A-fib ([facility] [place], [facility] [place]28) DM (diabetes mellitus) ([facility] [place], [facility] V28 ) Hypothyroidism Hyperlipidemia Renal failure History of stent insertion of renal artery Dialysis patient ([facility] [place]) Social History Tobacco Use Types Packs/Day Years Used Date Smoking Tobacco: Never Smokeless Tobacco: Current Tobacco Cessation:Ready to Q uit: Not Asked; Counseling Given: Not Answered Alcohol Use Standard Drinks/Week Comments Never 0 (1 standard drink = 0.6 oz pur e alcohol) Comments Unknown Sex and Gender Information Value Date Recorded Sex Assigned at Not on file Legal Sex Female 6:17 AM EST Gender Identity Not on file Sexual Orientation Not on file Obstetrics History Last Filed Vital Signs Vital Sign Reading Time Taken Comments Blood Pressure 116/84 01/07/2025 10:53 PM EDT Pulse 84 01/07/2025 10:53 PM EDT Temperature 36.7 C (98.1 F) 01/07/2025 10:53 PM EDT Respiratory Rate 18 01/07/2025 10:53 PM EDT Oxygen Saturation 100% 01/07/2025 10:53 PM EDT Inhaled Oxygen Concentration - - Weight 102 kg (225 lb) 01/07/2025 4:06 PM EDT Height 175.3 cm (5' 9 ) 01/07/2025 4:06 PM EDT Body Mass Index 33.23 01/07/2025 4:06 PM EDT Plan of Treatment Health Maintenance Due Date Last Done Comments Breast Cancer Screening 1952 Diabetes: Annual Foot Exam 1962 Diabetes: Annual Retina Eye Exam 1962 DTaP,Tdap,and Td Vaccines (1 - Tdap) 1971 Zoster Vaccines (1 of 2) 2002 RSV Immunization Adult Patients (1 - Risk 60-74 years 1-dose series) 2012 Cholesterol Screening (Lipid Panel) 06/27/2022 Colorectal Cancer Screening: Colonoscopy 06/27/2022 Falls Risk Assessment 06/27/2022 Hepatitis C Screening 06/27/2022 Medicare Annual Wellness Visit 06/27/2022 Osteoporosis Screening (Bone Density Screening) 06/27/2022 Social Influencers of Health Screening 06/27/2022 Depression Screening 07/25/2024 Diabetes: Annual Urine Albumin-Creatinine Ratio (uACR) 01/08/2025 COVID-19 Vaccine ( season) 2025 01/11/2022, 07/01/2021, 01/20/2021 Influenza Vaccine (#1) 2025 10/09/2020 Diabetes: Blood Sugar Control Test (HGBA1C) 09/14/2025 03/14/2025 Diabetes: Annual GFR (Glomerular Filtration Rate) 03/26/2026 03/26/2025, 03/25/2025, 03/18/2025, Additional history exists Hypertension/CHF/CAD Annual BMP Blood Test 03/26/2026 03/26/2025, 03/25/2025, 03/18/2025, Additional history exists Pneumococcal Vaccine: 50+ Years Completed 10/09/2020, 10/17/2017 HIB Vaccines Aged Out No longer eligi ble based on patient's age to complete this topic HPV Vaccines Aged Out No longer eligi ble based on patient's age to complete this topic Hepatitis A Vaccines Aged Out No long er eligible based on patient's age to complete this topic Hepatitis B Vaccines Aged Out No long er eligible based on patient's age to complete this topic IPV Vaccines Aged Out No longer eligi ble based on patient's age to complete this topic MMR Vaccines Aged Out No longer eligi ble based on patient's age to complete this topic Meningococcal ACWY Vaccine Aged Out N o longer eligible based on patient's age to complete this topic Meningococcal B Vaccine Aged Out No l onger eligible based on patient's age to complete this topic RSV Immunization Patients Under 20 months Aged Out No longer eligible based on patient's age to complete this topic Varicella Vaccines Aged Out No longer eligible based on patient's age to complete this topic Procedures Procedure Name Priority Date/Time Associated Diagnosis Comments BASIC METABOLIC PANEL Routine 03/26/2025 5:05 AM EDT Unspecified atrial fibrillation (CMS/HCC V24, CMS/HCC V28) Essential (primary) hypertension End stage renal disease (CMS/HCC V24, CMS/HCC V28) COMPLETE BLOOD COUNT Routine 03/26/2025 5:05 AM EDT Unspecified atrial fibrillation (CMS/HCC V24, CMS/HCC V28) Essential (primary) hypertension End stage renal disease (CMS/HCC V24, CMS/HCC V28) BASIC METABOLIC PANEL Routine 03/25/2025 6:30 AM EDT Anemia in other chronic diseases classified elsewhere COMPLETE BLOOD COUNT Routine 03/25/2025 6:30 AM EDT Anemia in other chronic diseases classified elsewhere BASIC METABOLIC PANEL Routine 03/18/2025 5:28 AM EDT Unspecified atrial fibrillation (CMS/HCC V24, CMS/HCC V28) Essential (primary) hypertension End stage renal disease (CMS/HCC V24, CMS/HCC V28) COMPLETE BLOOD COUNT Routine 03/18/2025 5:28 AM EDT Unspecified atrial fibrillation (CMS/HCC V24, CMS/HCC V28) Essential (primary) hypertension End stage renal disease (CMS/HCC V24, CMS/HCC V28) THYROID STIMULATING HORMONE WITH REFLEX TO FREE [...] complications (CMS/HCC V24, CMS/HCC V28) Hypothyroidism, unspecified VAS US DUPLEX LOWER EXT VENOUS BILAT Routine 01/07/2025 10:30 PM EDT Pain of left lower extremity CBC WITH AUTO DIFFERENTIAL STAT 01/07/2025 4:49 PM EDT LACTATE, WITH REFLEX STAT 01/07/2025 4:49 PM EDT BASIC METABOLIC PANEL STAT 01/07/2025 4:49 PM EDT CBC AND DIFFERENTIAL STAT 01/07/2025 4:49 PM EDT CULTURE BLOOD STAT 01/07/2025 4:49 PM EDT CULTURE BLOOD STAT 01/07/2025 4:49 PM EDT from Last 3 Months Results * (ABNORMAL) Complete blood count (03/26/2025 5:05 AM EDT) Only the most recent of4 resultswithin the time period is included. WBC 6.9 4.8 - 10.8 K/mcL LAB HEMETOLOGY METHOD 03/26/2025 11:34 AM EDT [facility] RBC 3.60(L) 3.80 - 4.80 M/mcL LAB HEMETOLOGY METHOD 03/26/2025 11:34 AM [facility] Hemoglobin 11.1(L) 11.5 - 16.0 g/dL LAB HEMETOLOGY METHOD 03/26/2025 11:34 AM T [facility] Hematocrit 35.4 35.0 - 47.0 % LAB HEMETOLOGY METHOD 03/26/2025 11:34 AM [facility] MCV 99.7(H) 79.0 - 98.0 FL LAB HEMETOLOGY METHOD 03/26/2025 11:34 AM [facility] MCH 31.3 27.0 - 32.0 pcg LAB HEMETOLOGY METHOD 03/26/2025 11:34 AM EDT [facility] MCHC 31.4(L) 32.0 - 37.0 g/dL LAB HEMETOLOGY METHOD 03/26/2025 11:34 AM [facility] RDW 14.6 11.0 - 15.0 % LAB HEMETOLOGY METHOD 03/26/2025 11:34 AM [facility] Platelets 163 130 - 400 K/mcL LAB HEMETOLOGY METHOD 03/26/2025 11:34 AM [facility] MPV 11.7(H) 7.0 - 11.0 FL LAB HEMETOLOGY METHOD 03/26/2025 11:34 AM [facility] NRBC 0.0 <1.0 % LAB HEMETOLOGY METHOD 03/26/2025 11:34 AM [facility] NRBC Absolute 0.00 <0.10 K/mcL LAB HEMETOLOGY METHOD 03/26/2025 11:34 AM [facility] Blood Venous blood specimen / Unknown Venipuncture / Unknown 03/26/2025 5:05 AM EDT 03/26/2025 10:33 AM EDT us Rosy Spring MD LAB BLOOD ORDERABLES Final Resu lt [facility] [address] [place] [address], * (ABNORMAL) Basic metabolic panel (03/26/2025 5:05 AM EDT) Only the most recent of5 resultswithin the time period is included. Sodium 136 133 - 145 mmol/L LAB CHEMISTRY METHOD 03/26/2025 12:06 PM [facility] Potassium 3.6 3.5 - 5.5 mmol/L LAB CHEMISTRY METHOD 03/26/2025 12:06 PM [facility] Chloride 97 96 - 110 mmol/L LAB CHEMISTRY METHOD 03/26/2025 12:06 PM [facility] CO2 31 21 - 32 mmol/L LAB CHEMISTRY METHOD 03/26/2025 12:06 PM [facility] Anion Gap 8 3 - 11 LAB CHEMISTRY METHOD 03/26/2025 12:06 PM [facility] Glucose 104(H) 70 - 100 mg/dL LAB CHEMISTRY METHOD 03/26/2025 12:06 PM [facility] BUN 22 5 - 25 mg/dL LAB CHEMISTRY METHOD 03/26/2025 12:06 PM [facility] Creatinine 4.80(H) 0.50 - 1.10 mg/dL LAB CHEMISTRY METHOD 03/26/2025 12:06 PM [facility] eGFR 9(L) >=60 mL/min/1. 73m2 LAB CHEMISTRY METHOD 03/26/2025 12:06 PM [facility] Comment:Calculation based on the Chronic Kidney Disease Epidemiology Collaboration (CKD-EPI) equation refit without adjustment for race. BUN/Creatinine Ratio 4.6 LAB CHEMISTRY METHOD 03/26/2025 12:06 PM [facility] Calcium 8.9 8.5 - 10.5 mg/dL LAB CHEMISTRY METHOD 03/26/2025 12:06 PM [facility] Blood Venous blood specimen / Unknown Venipuncture / Unknown 03/26/2025 5:05 AM EDT 03/26/2025 10:33 AM EDT us Rosy Spring MD LAB BLOOD ORDERABLES Final Resu lt [facility] [address] [place] [address], * Thyroid stimulating hormone with reflex to free t4 and free t3 (03/14/2025 4:59 AM EDT) Pathologist [facility] TSH 1.69 0.40 - 4.00 mcIU/mL LAB CHEMISTRY METHOD 03/14/2025 10:21 AM EDT [facility] Blood Venous blood specimen / Unknown Venipuncture / Unknown 03/14/2025 4:59 AM EDT 03/14/2025 8:08 AM EDT us Rosy Spring MD LAB BLOOD ORDERABLES Final Resu lt Performing Organization Address [facility] de Phone Number [facility] [address] [place] [address], [place] [phone] * (ABNORMAL) Hemoglobin A1c (03/14/2025 4:59 AM EDT) [facility] Hemoglobin A1C 7.1(H) <6.5 % LAB CHEMISTRY METHOD 03/14/2025 10:47 AM EDT [facility] Mean Bld Glu Estim. 157 mg/dL LAB CHEMISTRY METHOD 03/14/2025 10:47 AM EDT [facility] Blood Venous blood specimen / Unknown Venipuncture / Unknown 03/14/2025 4:59 AM EDT 03/14/2025 8:08 AM EDT us Rosy Spring MD LAB BLOOD ORDERABLES Final Resu lt Performing Organization Address [facility]/ZIP Co de Phone Number [facility] [address] [place] [address], [place] [phone] * Vascular US duplex lower extremity venous bilateral (01/07/2025 10:30 PM EDT) Anatomical Region Laterality Modality Vascular, Abdomen Ultrasound 01/08/2025 12:1 1 AM EDT Impressions 01/08/2025 12:12 AM EDT NO RIGHT OR LEFT LOWER EXTREMITY DEEP VENOUS THROMBOSIS. -------- FINAL REPORT -------- Dictated By: Darwin Dudley Dictated Date: 01/08/2025 00:11 ET Assigned Physician: Darwin Dudley Reviewed and Electronically Signed By: Darwin Dudley Signed Date: 01/08/2025 00:12 ET Workstation ID: [id number] Transcribed By: Self Edit Transcribed Date: 01/08/2025 00:11 ET Narrative 01/08/2025 12:12 AM EDT PROCEDURE: VAS US DUPLEX LOWER EXT VENOUS BILAT INDICATION: edema erythema pain in extremities TECHNIQUE: 2-D and color Doppler imaging of the lower extremity venous vasculature with compression and augmentation maneuvers. COMPARISON: No priors available. FINDINGS: RIGHT: There is normal flow, compression, and augmentation from the common femoral through the popliteal vein. Very limited evaluation of the calf vasculature. LEFT: There is normal flow, compression, and augmentation from the common femoral through the popliteal vein. Calf vessels unable to be evaluated. Procedure Note Darwin Dudley MD - 01/08/2025 PROCEDURE: VAS US DUPLEX LOWER EXT VENOUS BILAT INDICATION: edema erythema pain in extremities TECHNIQUE: 2-D and color Doppler imaging of the lower extremity venousvasculature with compression and augmentation maneuvers. COMPARISON: No priors available. FINDINGS: RIGHT: There is normal flow, compression, and augmentation from the commonfemoral through the popliteal vein. Very limited evaluation of the calfvasculature. LEFT: There is normal flow, compression, and augmentation from the commonfemoral through the popliteal vein. Calf vessels unable to beevaluated. IMPRESSION: NO RIGHT OR LEFT LOWER EXTREMITY DEEP VENOUS THROMBOSIS. -------- FINAL REPORT -------- Dictated By: Darwin Dudley Dictated Date: 01/08/2025 00:11 ET Assigned Physician: Darwin Dudley Reviewed and Electronically Signed By: Darwin Dudley Signed Date: 01/08/2025 00:12 ET Workstation ID: [id number] Transcribed By: Self Edit Transcribed Date: 01/08/2025 00:11 ET us Leidy WE[facility] CV VASCULAR PROCEDURES Final Re sult * Lactate, with reflex (01/07/2025 4:49 PM EDT) LACTIC ACID 1.3 0.4 - 2.0 mmol/L LAB CHEMISTRY METHOD 01/07/2025 5:47 PM EDT [facility] Blood Venous blood specimen / Unknown Venipuncture / Unknown 01/07/2025 4:49 PM EDT 01/07/2025 5:06 PM EDT us Terry Mak MD LAB BLOOD ORDERABLES Final Result [facility] [address] [place] [address], [place] [phone] * (ABNORMAL) CBC auto differential (01/07/2025 4:49 PM EDT) WBC 8.1 4.8 - 10.8 K/mcL LAB HEMETOLOGY METHOD 01/07/2025 5:19 PM EDT [facility] RBC 4.00 3.80 - 4.80 M/mcL LAB HEMETOLOGY METHOD 01/07/2025 5:19 PM EDT [facility] Hemoglobin 11.7 11.5 - 16.0 g/dL LAB HEMETOLOGY METHOD 01/07/2025 5:19 PM EDT [facility] Hematocrit 38.4 35.0 - 47.0 % LAB HEMETOLOGY METHOD 01/07/2025 5:19 PM EDT [facility] MCV 95.0 79.0 - 98.0 FL LAB HEMETOLOGY METHOD 01/07/2025 5:19 PM EDT [facility] MCH 29.0 27.0 - 32.0 pcg LAB HEMETOLOGY METHOD 01/07/2025 5:19 PM EDT [facility] MCHC 30.5(L) 32.0 - 37.0 g/dL LAB HEMETOLOGY METHOD 01/07/2025 5:19 PM EDT [facility] RDW 16.0(H) 11.0 - 15.0 % LAB HEMETOLOGY METHOD 01/07/2025 5:19 PM [facility] Platelets 159 130 - 400 K/mcL LAB HEMETOLOGY METHOD 01/07/2025 5:19 PM [facility] MPV 11.3(H) 7.0 - 11.0 FL LAB HEMETOLOGY METHOD 01/07/2025 5:19 PM [facility] NRBC 0.0 <1.0 % LAB HEMETOLOGY METHOD 01/07/2025 5:19 PM [facility] NRBC Absolute 0.00 <0.10 K/mcL LAB HEMETOLOGY METHOD 01/07/2025 5:19 PM [facility] Neutrophils Relative 79.3 % LAB HEMETOLOGY METHOD 01/07/2025 5:19 PM [facility] Lymphocytes Relative 11.7 % LAB HEMETOLOGY METHOD 01/07/2025 5:19 PM [facility] Monocytes Relative 5.6 % LAB HEMETOLOGY METHOD 01/07/2025 5:19 PM [facility] Eosinophils Relative 2.2 % LAB HEMETOLOGY METHOD 01/07/2025 5:19 PM [facility] Basophils Relative 0.5 % LAB HEMETOLOGY METHOD 01/07/2025 5:19 PM [facility] Immature Granulocytes Relative 0.7 % LAB HEMETOLOGY METHOD 01/07/2025 5:19 PM [facility] Neutrophils Absolute 6.42 1.50 - 7.00 K/mcL LAB HEMETOLOGY METHOD 01/07/2025 5:19 PM [facility] Lymphocytes Absolute 0.95(L) 1.00 - 5.00 K/mcL LAB HEMETOLOGY METHOD 01/07/2025 5:19 PM [facility] Monocytes Absolute 0.45 0.20 - 1.00 K/mcL LAB HEMETOLOGY METHOD 01/07/2025 5:19 PM EDT [facility] Eosinophils Absolute 0.18 0.00 - 0.50 K/[facility] LAB HEMETOLOGY METHOD 01/07/2025 5:19 PM EDT [facility] Basophils Absolute 0.04 0.00 - 0.20 K/[facility] LAB HEMETOLOGY METHOD 01/07/2025 5:19 PM EDT [facility] Immature Granulocytes Absolute 0.06(H) 0.00 - 0.03 K/[facility] LAB HEMETOLOGY METHOD 01/07/2025 5:19 PM EDT [facility] Blood Venous blood specimen / Unknown Venipuncture / Unknown 01/07/2025 4:49 PM EDT 01/07/2025 5:07 PM EDT Terry Mak MD LAB BLOOD ORDERABLES Final Result Performing Organization Address [facility]/ZIP Co de Phone Number [facility] [address] [place] [address], [place] [phone] * Culture blood (01/07/2025 4:49 PM EDT) Only the most recent of2 resultswithin the time period is included. Culture, Blood No growth at 5 days 01/12/2025 6:01 PM EDT [facility] Blood Venous blood specimen / Unknown Venipuncture / Unknown 01/07/2025 4:49 PM EDT 01/07/2025 5:07 PM EDT Terry Mak MD LAB MICROBIOLOGY - GENERAL ORDERABLES Final Result Performing Organization Address [facility]/ZIP Co de Phone Number [facility] [address] [place] [address], [place] [phone] from Last 3 Months Insurance MEDICARE [place]ICAID - [place] Care Teams Credit Charge Authorizer Relationship Specialty Start Date End Date Carlee Turner MD [address] [place] [address] [phone] PCP - General Internal Medicine 01/07/25
--- OUTSIDE RECORDS SUMMARY | 2025-04-09 11:27 | XMS_ITS | Encounter Summary ---
Author Organization [facility] Address [id number] [place] [phone] Care Team Providers Care Senior Product Marketing Manager Name Role Phone Carlee Turner MD Primary Care Provider [phone] Encounter Details Date Type Department Care Team (Late st Contact Info) Description 03/22/2025 Lab Requisition [facility] [address] [facility] [place] [address] Rosy Spring MD [address] [place] [phone] Unspecified atrial fibrillation (CMS/HCC V24, CMS/HCC V28); Essential (primary) hypertension; End stage renal disease (CMS/HCC V24, CMS/HCC V28) Social History Tobacco Use Types Packs/Day Years [...] Procedure Name Priority Date/Time Associated Diagnosis Comments COMPLETE BLOOD COUNT Routine 03/26/2025 5:05 AM EDT Unspecified atrial fibrillation (CMS/HCC V24, CMS/HCC V28) Essential (primary) hypertension End stage renal disease (CMS/HCC V24, CMS/HCC V28) BASIC METABOLIC PANEL Routine 03/26/2025 5:05 AM EDT Unspecified atrial fibrillation (CMS/HCC V24, CMS/HCC V28) Essential (primary) hypertension End stage renal disease ([facility] V24, [facility] V28) documented in this encounter Results * (ABNORMAL) Basic metabolic panel (03/26/2025 5:05 AM EDT) Sodium 136 133 - 145 mmol/L LAB CHEMISTRY METHOD 03/26/2025 12:06 PM [facility] Potassium 3.6 3.5 - 5.5 mmol/L LAB CHEMISTRY METHOD 03/26/2025 12:06 PM [facility] Chloride 97 96 - 110 mmol/L LAB CHEMISTRY METHOD 03/26/2025 12:06 PM [facility] CO2 31 21 - 32 mmol/L LAB CHEMISTRY METHOD 03/26/2025 12:06 PM [facility] Anion Gap 8 3 - 11 LAB CHEMISTRY METHOD 03/26/2025 12:06 PM [facility] Glucose 104(H) 70 - 100 mg/dL LAB CHEMISTRY METHOD 03/26/2025 12:06 PM [facility] BUN 22 5 - 25 mg/dL LAB CHEMISTRY METHOD 03/26/2025 12:06 PM [facility] Creatinine 4.80(H) 0.50 - 1.10 mg/dL LAB CHEMISTRY METHOD 03/26/2025 12:06 PM [facility] eGFR 9(L) >=60 mL/min/1. 73m2 LAB CHEMISTRY METHOD 03/26/2025 12:06 PM [facility] Comment:Calculation based on the Chronic Kidney Disease Epidemiology Collaboration (CKD-EPI) equation refit without adjustment for race. BUN/Creatinine Ratio 4.6 LAB CHEMISTRY METHOD 03/26/2025 12:06 PM [facility] Calcium 8.9 8.5 - 10.5 mg/dL LAB CHEMISTRY METHOD 03/26/2025 12:06 PM [facility] Blood Venous blood specimen / Unknown Venipuncture / Unknown 03/26/2025 5:05 AM EDT 03/26/2025 10:33 AM EDT us Rosy Spring MD LAB BLOOD ORDERABLES Final Resu lt [facility] [address] [place] [address], * (ABNORMAL) Complete blood count (03/26/2025 5:05 AM EDT) WBC 6.9 4.8 - 10.8 K/mcL LAB HEMETOLOGY METHOD 03/26/2025 11:34 AM EDT [facility] RBC 3.60(L) 3.80 - 4.80 M/mcL LAB HEMETOLOGY METHOD [facility] Hemoglobin 11.1(L) 11.5 - 16.0 g/dL LAB HEMETOLOGY METHOD 03/26/2025 11:34 AM [facility] Hematocrit 35.4 35.0 - 47.0 % LAB HEMETOLOGY METHOD 03/26/2025 11:34 AM [facility] MCV 99.7(H) 79.0 - 98.0 FL LAB HEMETOLOGY METHOD 03/26/2025 11:34 AM EDT [facility] MCH 31.3 27.0 - 32.0 pcg LAB HEMETOLOGY METHOD 03/26/2025 11:34 AM [facility] MCHC 31.4(L) 32.0 - 37.0 g/dL LAB HEMETOLOGY METHOD 03/26/2025 11:34 AM [facility] RDW 14.6 11.0 - 15.0 % LAB HEMETOLOGY METHOD 03/26/2025 11:34 AM T [facility] Platelets 163 130 - 400 K/mcL LAB HEMETOLOGY METHOD 03/26/2025 11:34 AM EDT [facility] MPV 11.7(H) 7.0 - 11.0 FL LAB HEMETOLOGY METHOD 03/26/2025 11:34 AM EDT [facility] NRBC 0.0 <1.0 % LAB HEMETOLOGY METHOD 03/26/2025 11:34 AM EDT [facility] NRBC Absolute 0.00 <0.10 K/mcL LAB HEMETOLOGY METHOD 03/26/2025 11:34 AM EDT [facility] Blood Venous blood specimen / Unknown Venipuncture / Unknown 03/26/2025 5:05 AM EDT 03/26/2025 10:33 AM EDT us Rosy Spring MD LAB BLOOD ORDERABLES Final Resu lt [facility] [address] [place] [address], documented in this encounter Visit Diagnoses Diagnosis Unspecified atrial fibrillation (CMS/HCC V24, CMS/HCC V28) Essential (primary) hypertension Unspecified essential hypertension End stage renal disease (CMS/HCC V24, CMS/HCC V28) End stage renal disease documented in this encounter Care Teams Senior Product Marketing Manager Relationship Specialty Start Date End Date Carlee Turner MD [address] [place] [phone] PCP - General Internal Medicine 01/07/25 documented as of this encounter
--- OUTSIDE RECORDS SUMMARY | 2025-04-09 11:27 | XMS_ITS | Encounter Summary ---
Author Organization [facility], Address [address] [place] [address] Phone Care Team Providers Care Mechanical Reliability Engineer Name Role Phone Natty Sequeira NP Primary Care Provider [phone] Reason for Visit * Reason Comments Med Refill Encounter Details Date Type Department Care Team (Late st Contact Info) Description 12/01/2020 Refill [facility] [address] [place] [address] Frank Krishnamurthy MD Social History [...] Visit [facility] - [facility] [address] [place] [address] documented as of this encounter Visit Diagnoses Not on filedocumented in this encounter Care Teams Mechanical Reliability Engineer Relationship Specialty Start Date End Date Natty Sequeira NP [address] [place] [address] PCP - General Nurse Practitioner 09/03/21 documented as of this encounter
--- OUTSIDE RECORDS SUMMARY | 2025-04-09 11:27 | XMS_ITS | Encounter Summary ---
Author Organization [facility], Address [address] [place] [address] Phone Care Team Providers Care City Maintenance Manager Name Role Phone Natty Sequeira NP Primary Care Provider [phone] Reason for Visit * Reason Comments Med Refill Encounter Details Date Type Department Care Team (Late st Contact Info) Description 08/09/2022 Refill [facility] [address] [place] [address] Eric Martínez MD [address] [place] [phone] Social History Tobacco Use Types Packs/Day Years [...] Visit [facility] [address] [place] [address] documented as of this encounter Visit Diagnoses Not on filedocumented in this encounter Care Teams City Maintenance Manager Relationship Specialty Start Date End Date Natty Sequeira NP [address] [place] [address] PCP - General Nurse Practitioner 09/03/21 documented as of this encounter
--- OUTSIDE RECORDS SUMMARY | 2025-04-09 11:27 | XMS_ITS | Encounter Summary ---
Author Organization [facility] Address [address] [place] [address] Care Team Providers Care Wool Supplier Name Role Phone Carlee Turner MD Primary Care Provider [phone] Encounter Details Date Type Department Care Team (Late st Contact Info) Description 03/25/2025 Lab Requisition [facility] - Main Lab [address] [place] [address] Rosy Spring MD [address] [place] [address] Anemia in other chronic diseases classified elsewhere Social History Tobacco Use Types Packs/Day Years [...] Associated Diagnosis Comments COMPLETE BLOOD COUNT Routine 03/25/2025 6:30 AM EDT Anemia in other chronic diseases classified elsewhere BASIC METABOLIC PANEL Routine 03/25/2025 6:30 AM EDT Anemia in other chronic diseases classified elsewhere documented in this encounter Results * (ABNORMAL) Basic metabolic panel (03/25/2025 6:30 AM EDT) Sodium 131(L) 133 - 145 mmol/L LAB CHEMISTRY METHOD 03/25/2025 9:31 AM [facility] Potassium 4.7 3.5 - 5.5 mmol/L LAB CHEMISTRY METHOD 03/25/2025 9:31 AM [facility] Chloride 95(L) 96 - 110 mmol/L LAB CHEMISTRY METHOD 03/25/2025 9:31 AM [facility] CO2 27 21 - 32 mmol/L LAB CHEMISTRY METHOD 03/25/2025 9:31 AM [facility] Anion Gap 9 3 - 11 LAB CHEMISTRY METHOD 03/25/2025 9:31 AM [facility] Glucose 94 70 - 100 mg/dL LAB CHEMISTRY METHOD 03/25/2025 9:31 AM [facility] BUN 54(H) 5 - 25 mg/dL LAB CHEMISTRY METHOD 03/25/2025 9:31 AM [facility] Creatinine 7.39(H) 0.50 - 1.10 mg/dL LAB CHEMISTRY METHOD 03/25/2025 9:31 AM [facility] eGFR 5(L) >=60 mL/min/1. 73m2 LAB CHEMISTRY METHOD 03/25/2025 9:31 AM [facility] Comment:Calculation based on the Chronic Kidney Disease Epidemiology Collaboration (CKD-EPI) equation refit without adjustment for race. BUN/Creatinine Ratio 7.3 LAB CHEMISTRY METHOD 03/25/2025 9:31 AM [facility] Calcium 8.9 8.5 - 10.5 mg/dL LAB CHEMISTRY METHOD 03/25/2025 9:31 AM [facility] Blood Venous blood specimen / Unknown Venipuncture / Unknown 03/25/2025 6:30 AM EDT 03/25/2025 8:47 AM EDT us Rosy Spring MD LAB BLOOD ORDERABLES Final Resu lt [facility] [address] [place] [address], * (ABNORMAL) Complete blood count (03/25/2025 6:30 AM EDT) [facility] Signature WBC 6.7 4.8 - 10.8 K/mcL LAB HEMETOLOGY METHOD 03/25/2025 9:24 AM EDT [facility] RBC 3.40(L) 3.80 - 4.80 M/mcL LAB HEMETOLOGY METHOD 03/25/2025 9:24 AM EDT [facility] Hemoglobin 10.5(L) 11.5 - 16.0 g/dL LAB HEMETOLOGY METHOD 03/25/2025 9:24 AM EDT [facility] Hematocrit 32.0(L) 35.0 - 47.0 % LAB HEMETOLOGY METHOD 03/25/2025 9:24 AM EDT [facility] MCV 95.0 79.0 - 98.0 FL LAB HEMETOLOGY METHOD 03/25/2025 9:24 AM EDT [facility] MCH 31.2 27.0 - 32.0 pcg LAB HEM[facility]OLOGY [facility] MCHC 32.8 32.0 - 37.0 g/dL LAB HEMETOLOGY METHOD 03/25/2025 9:24 AM EDT [facility] RDW 14.3 11.0 - 15.0 % LAB HEMETOLOGY METHOD 03/25/2025 9:24 AM EDT [facility] Platelets 144 130 - 400 K/mcL LAB HEMETOLOGY METHOD 03/25/2025 9:24 AM EDT [facility] MPV 11.9(H) 7.0 - 11.0 FL LAB HEMETOLOGY METHOD 03/25/2025 9:24 AM EDT [facility] NRBC 0.0 <1.0 % LAB HEMETOLOGY METHOD 03/25/2025 9:24 AM EDT [facility] NRBC Absolute 0.00 <0.10 K/mcL LAB HEMETOLOGY METHOD 03/25/2025 9:24 AM EDT [facility] Blood Venous blood specimen / Unknown Venipuncture / Unknown 03/25/2025 6:30 AM EDT 03/25/2025 8:47 AM EDT us Rosy Spring MD LAB BLOOD ORDERABLES Final Resu lt [facility] [address] [place] [address], documented in this encounter Visit Diagnoses Diagnosis Anemia in other chronic diseases classified elsewhere documented in this encounter Care Teams Wool Supplier Relationship Specialty Start Date End Date Carlee Turner MD [address] [place] [address] PCP - General Internal Medicine 01/07/25 documented as of this encounter
--- OUTSIDE RECORDS SUMMARY | 2025-04-09 11:27 | XMS_ITS | Encounter Summary ---
Author Organization [facility], Address [address] [place] [address] Phone Care Team Providers Care Quality Control Expert Name Role Phone Natty Sequeira NP Primary Care Provider [phone] Reason for Visit * Reason Comments Med Refill Encounter Details Date Type Department Care Team (Late st Contact Info) Description 06/24/2020 Refill [facility] [address] [place] [phone] Frank Krishnamurthy MD Social History Tobacco Use [...] Visit [facility] - V[facility] Access Center [address] [place] [address] documented as of this encounter Visit Diagnoses Not on filedocumented in this encounter Care Teams Quality Control Expert Relationship Specialty Start Date End Date Natty Sequeira NP [address] [place] [address] PCP - General Nurse Practitioner 09/03/21 documented as of this encounter
--- OUTSIDE RECORDS SUMMARY | 2025-04-09 11:27 | XMS_ITS | Encounter Summary ---
Author Organization [facility] Address [address] [place] [address] Care Team Providers Care Tester Waste Disposal Leakage Name Role Phone Carlee Turner MD Primary Care Provider [phone] Encounter Details Date Type Department Care Team (Late st Contact Info) Description 03/15/2025 Lab Requisition [facility] - Main Lab [address] [facility] [place] [address] Rosy Spring MD [address] [place] [address] Unspecified atrial fibrillation (CMS/HCC V24, CMS/HCC V28); [...] Associated Diagnosis Comments COMPLETE BLOOD COUNT Routine 03/18/2025 5:28 AM EDT Unspecified atrial fibrillation (CMS/HCC V24, CMS/HCC V28) Essential (primary) hypertension End stage renal disease (CMS/HCC V24, CMS/HCC V28) BASIC METABOLIC PANEL Routine 03/18/2025 5:28 AM EDT Unspecified atrial fibrillation (CMS/HCC V24, CMS/HCC V28) Essential (primary) hypertension End stage renal disease ([facility] V24, [facility] V28) documented in this encounter Results * (ABNORMAL) Basic metabolic panel (03/18/2025 5:28 AM EDT) Sodium 133 133 - 145 mmol/L LAB CHEMISTRY METHOD 03/18/2025 1:[address] [facility] Potassium 5.9(H) 3.5 - 5.5 mmol/L LAB CHEMISTRY METHOD 03/18/2025 1:[address] [facility] Chloride 96 96 - 110 mmol/L LAB CHEMISTRY METHOD 03/18/2025 1:[address] [facility] CO2 28 21 - 32 mmol/L LAB CHEMISTRY METHOD 03/18/2025 1:[address] [facility] Anion Gap 9 3 - 11 LAB CHEMISTRY METHOD 03/18/2025 1:[address] [facility] Glucose 61(L) 70 - 100 mg/dL LAB CHEMISTRY METHOD 03/18/2025 1:[address] [facility] BUN 88(H) 5 - 25 mg/dL LAB CHEMISTRY METHOD 03/18/2025 1:[address] [facility] Comment:Results verified by repeat testing Creatinine 8.64(H) 0.50 - 1.10 mg/dL LAB CHEMISTRY METHOD 03/18/2025 1:[address] [facility] Comment:Results verified by repeat testing eGFR 5(L) >=60 mL/min/1. 73m2 LAB CHEMISTRY METHOD 03/18/2025 1:[address] [facility] Comment:Calculation based on the Chronic Kidney Disease Epidemiology Collaboration (CKD-EPI) equation refit without adjustment for race. BUN/Creatinine Ratio 10.2 LAB CHEMISTRY METHOD 03/18/2025 1:[address] [facility] Calcium 9.3 8.5 - 10.5 mg/dL LAB CHEMISTRY METHOD 03/18/2025 1:04 PM EDT [facility] Blood Venous blood specimen / Unknown Venipuncture / Unknown 03/18/2025 5:28 AM EDT 03/18/2025 10:50 AM EDT us Rosy Spring MD LAB BLOOD ORDERABLES Final Resu lt [facility] [address] [place] [address], [place] [phone] * (ABNORMAL) Complete blood count (03/18/2025 5:28 AM EDT) WBC 6.8 4.8 - 10.8 K/mcL LAB HEMETOLOGY METHOD 03/18/2025 12:31 PM EDT [facility] RBC 3.20(L) 3.80 - 4.80 M/mcL LAB HEMETOLOGY METHOD 03/18/2025 12:31 PM EDT [facility] Hemoglobin 10.0(L) 11.5 - 16.0 g/dL LAB HEMETOLOGY METHOD 03/18/2025 12:31 PM EDT [facility] Hematocrit 31.6(L) 35.0 - 47.0 % LAB HEMETOLOGY METHOD 03/18/2025 12:31 PM EDT [facility] MCV 98.4(H) 79.0 - 98.0 FL LAB HEMETOLOGY METHOD 03/18/2025 12:31 PM EDT [facility] MCH 31.2 27.0 - 32.0 pcg LAB HEMETOLOGY METHOD [facility] MCHC 31.6(L) 32.0 - 37.0 g/dL LAB HEMETOLOGY METHOD 03/18[facility]2025 [facility] RDW 14.7 11.0 - 15.0 % LAB HEMETOLOGY METHOD 03/18/2025 12:31 PM EDT [facility] Platelets 169 130 - 400 K/mcL LAB HEMETOLOGY METHOD 03/18/2025 12:31 PM EDT [facility] MPV 11.9(H) 7.0 - 11.0 FL LAB HEMETOLOGY METHOD 03/18/2025 12:31 PM EDT [facility] NRBC 0.0 <1.0 % LAB HEMETOLOGY METHOD 03/18/2025 12:31 PM EDT [facility] NRBC Absolute 0.00 <0.10 K/mcL LAB HEMETOLOGY METHOD 03/18/2025 12:31 PM EDT [facility] Blood Venous blood specimen / Unknown Venipuncture / Unknown 03/18/2025 5:28 AM EDT 03/18/2025 10:50 AM EDT us Rosy Spring MD LAB BLOOD ORDERABLES Final Resu lt [facility] [address] [place] [address], documented in this encounter Visit Diagnoses Diagnosis Unspecified atrial fibrillation (CMS/HCC V24, CMS/HCC V28) Essential (primary) hypertension Unspecified essential hypertension End stage renal disease (CMS/HCC V24, CMS/HCC V28) End stage renal disease documented in this encounter Care Teams Tester Waste Disposal Leakage Relationship Specialty Start Date End Date Carlee Turner MD [address] [place] [address] PCP - General Internal Medicine 01/07/25 documented as of this encounter
--- OUTSIDE RECORDS SUMMARY | 2025-04-09 11:27 | XMS_ITS | Encounter Summary ---
Author Organization [facility], Address [address] [place] [address] Phone Care Team Providers Care Linoleum Layer Apprentice Name Role Phone Natty Sequeira SENIOR TECHNICAL ARCHITECT Primary Care Provider [phone] Reason for Visit * Reason Comments Med Refill Encounter Details Date Type Department Care Team (Late st Contact Info) Description 11/14/2020 Refill [facility] [address] [place] [address] Frank Krishnamurthy MD Social History [...] Visit [facility] - [facility] Center [address] [place] [address] [place] [address] documented as of this encounter Visit Diagnoses Not on filedocumented in this encounter Care Teams Linoleum Layer Apprentice Relationship Specialty Start Date End Date Natty Sequeira NP [address] [place] [address] PCP - General Nurse Practitioner 09/03/21 documented as of this encounter
--- OUTSIDE RECORDS SUMMARY | 2025-04-09 11:27 | XMS_ITS | Encounter Summary ---
Author Organization [facility], Address [address] [place] [address] Phone Care Team Providers Care Napping Machine Operator Name Role Phone Natty Sequeira NP Primary Care Provider [phone] Encounter Details Date Type Department Care Team (Late st Contact Info) Description 09/02/2021 Documentation Only [facility] [address] [place] [phone] Clair [address] [place] [address] Social History Tobacco Use Types Packs/Day [...] Visit [facility] V[facility] Access Center [address] [place] [phone] documented as of this encounter Visit Diagnoses Not on filedocumented in this encounter Care Teams Napping Machine Operator Relationship Specialty Start Date End Date Natty Sequeira NP [address] [place] [address] PCP - General Nurse Practitioner 09/03/21 documented as of this encounter
--- OUTSIDE RECORDS SUMMARY | 2025-04-09 11:27 | XMS_ITS | Clinical Summary ---
Author Organization [facility], Address [address] [place] [address] Phone Care Team Providers Care Autobody Technician Name Role Phone Fabby Natty JOSE MARIA Primary Care Provider [phone] Allergies Active Allergy Reactions Criticality Noted Date [...] States it will increase her potassium Peg 8606-Lmn-Ykdry-Nacl-Nasulf Other (see comments) Low 11/05/2019 Bad for [...] 137 mcg tablet 02/07/20 21 Active B Tryqgwa-T-Rzgyh Acid (NEPHROCAPS PO) Take 1 capsule by mouth 10/18/19 21 Active apixaban (ELIQUIS) 5 MG tablet Take 5 mg by mouth in the morning and 5 mg in the evening. Active metoprolol tartrate 25 MG tablet Take [...] Inject under the skin 04/24/20 24 Active DM-Phenylephrine- Acetaminophen 10-5-325 MG capsule Take 10 mL by mouth 04/24/20 24 Active allopurinol (ZYLOPRIM) 100 MG tablet Take 1 tablet by mouth 1 (one) time each day 11/22/19 24 Active doxycycline (VIBRA-TABS) 100 MG tablet Take 1 tablet by mouth in the morning and 1 tablet in the evening. Active ipratropium-albut mo (DUO-NEB) 0.5-2.5 mg/3 mL nebulizer solution Take 3 mL by nebulization every 4 (four) hours if needed 04/24/20 24 Active azithromycin (ZITHROMAX) 250 MG tablet Take 250 mg by mouth 1 (one) time each day X 4 days Active Insulin Degludec FlexTouch 100 UNIT/ML solution pen-injector 11/13/19 25 Active NIFEdipine XL (PROCARDIA XL) 30 MG 24 hr tablet Take 1 tablet by mouth every other day. Non dialysis days. 90 tablet 01/29/20 25 Active Active Problems Problem Noted Date Diagnosed [...] Encounters Date Type Department Care Team Description 04/03/2025 Treatment [facility] [place] [address] [place] [address] Claude Millard MD End stage renal disease; Dependence on renal dialysis 03/08/2025 Treatment [facility], [place] [address] Claude Millard MD End stage renal disease; Dependence on renal dialysis 03/04/2025 Treatment [facility], [address] [place] [address] Claude Millard MD End stage renal disease; Dependence on renal dialysis 02/11/2025 Treatment [facility], [address] [place] [address] Claude Millard MD End stage renal disease; Dependence on renal dialysis 01/28/2025 Treatment [facility], [address] [place] [address] Claude Millard MD End stage renal disease; Dependence on renal dialysis 01/26/2025 Refill [facility] [address] [facility] [address] Primo Murguia MD from Last 3 Months Family History Medical History Relation Comments Diabetes Father and grandparents Heart disease Father grandmother dads brother OR Hypertension Father and grandparents Kidney disease Father [...] 68 11/22/2024 1:33 PM EDT Temperature 35.9 C (96.6 F) 11/22/2024 1:33 PM EDT Respiratory Rate 16 11/22/2024 1:33 PM EDT [...] Visit [facility] - Vascular Access Center [address] [place] [address] Health Maintenance Due Date Last Done Comments Breast Cancer Screening 1952 Colorectal Cancer Screening: Annual FOBT 2001 Colorectal Cancer Screening: Sigmoidoscopy 2001 Diabetes: Ophthalmology Exam 10/11/2019 Diabetes: Pedal Pulse Checked 10/11/2019 Diabetes: Sensory Foot Exam 10/11/2019 Diabetes: Visual Foot Exam 10/11/2019 Diabetes: Hemoglobin A1C 07/29/2022 022, 01/27/2022, 10/28/2021, Additional history exists Influenza Vaccine (#1) 2025 10/09/2020 Colorectal Cancer Screening: Colonoscopy 10/28/2031 10/27/2021 Pneumococcal Vaccine: 50+ Years Completed 10/09/2020, 10/17/2017 Pneumococcal Vaccine: Peds (0 to 5 Years) and At-Risk Patients (6 to 49 Years) Discontinued 10/09/2020, 10/17/2017 Hepatitis B Vaccine Aged Out No longe r eligible based on patient's age to complete this topic Procedures Procedure Name Priority Date/Time Associated Diagnosis Comments SPECIAL CHEMISTRY Routine 04/28/2022 3:0 0 PM EDT from Last 3 Months or Most Recently Relevant to Health Maintenance Results * (ABNORMAL) SPECIAL CHEMISTRY (04/28/2022 3:00 PM EDT) Hemoglobin A1C 6.4(H) 4.8 - 5.9 % [facility] 04/28/2022 3:00 PM EDT 04/29/2022 7:06 AM EDT Narrative [facility] - 04/28/2022 3:00 PM EDT Unless otherwise specified, test(s) performed at: [facility], [address] [place] [address] BLACKTOP SPREADER: Terry Silva M.D. For any questions, please call customer service at [facility] Resulting Agency Comment Specimen source: Blood us Eric Martínez MD LAB BLOOD BANK TEST ORDERABLES F inal Result [facility] from Last 3 Months or Most Recently Relevant to Health Maintenance Insurance Medicare Medicaid [place] Care Teams Autobody Technician Relationship Specialty Start Date End Date Natty Sequeira NP [address] [place] [address] PCP - General Nurse Practitioner 09/03/21
--- OUTSIDE RECORDS SUMMARY | 2025-04-09 11:27 | XMS_ITS | Encounter Summary ---
Author Organization [facility], Address [address] [place] [address] Phone Care Team Providers Care Guide Alpine Name Role Phone Natty Sequeira NP Primary Care Provider [phone] Reason for Visit * Reason Comments Med Refill Encounter Details Date Type Department Care Team (Late st Contact Info) Description 12/01/2020 Refill [facility] [address] [place] [address] Frank Krishnamurthy MD Social History [...] Visit [facility] - [facility] Center [address] [place] [address] documented as of this encounter Visit Diagnoses Not on filedocumented in this encounter Care Teams Guide Alpine Relationship Specialty Start Date End Date Natty Sequeira NP [address] [place] [address] PCP - General Nurse Practitioner 09/03/21 documented as of this encounter
--- OUTSIDE RECORDS SUMMARY | 2025-04-09 11:27 | XMS_ITS | Encounter Summary ---
Author Organization [facility] Address [address] [place] [address] Care Team Providers Care Genetic Physician Name Role Phone Carlee Turner MD Primary Care Provider Encounter Details Date Type Department Care Team (Late st Contact Info) Description 03/29/2025 Lab Requisition [facility] - Main Lab [address] [facility] [address] Rosy Spring MD [address] [place] [address] Unspecified atrial fibrillation (CMS/HCC V24, CMS/HCC V28); [...] on file documented as of this encounter Visit Diagnoses Diagnosis Unspecified atrial fibrillation (CMS/HCC V24, CMS/HCC V28) Essential (primary) hypertension Unspecified essential hypertension End stage renal disease (CMS/HCC V24, CMS/HCC V28) End stage renal disease documented in this encounter Care Teams Genetic Physician Relationship Specialty Start Date End Date Carlee Turner MD [address] [place] [address] [address] [place], [place] [phone] PCP - General Internal Medicine 01/07/25 documented as of this encounter
--- OUTSIDE RECORDS SUMMARY | 2025-04-09 11:27 | XMS_ITS | Clinical Summary ---
Author Organization [facility] Address [address] [place] [id number] Phone Care Team Providers Care X Ray Technologist Name Role Phone Carlee Rodríguez MD Primary Care Provider Social History Tobacco Use Types Packs/Day Years Used Date Smoking Tobacco: Never Assessed Education Answer Date Recorded Are you interested in more education? Not on solnage e 11/19/2022 Are you concerned about learning? Not on file 11/19/2022 No 11/19/2022 No 11/19/2022 Digital Access Answer Date Recorded No 12/21/2022 No 12/21/2022 Reliable internet access at home? Not on file 12/21/2022 Device with a working camera? Not on file Comments Unknown Sex and Gender Information Value Date Recorded Sex Assigned at Female 09/02/2022 9:52 AM EST Legal Sex Female 9:11 AM EDT Gender Identity Female 09/02/2022 9:49 AM EST Sexual Orientation Straight 09/02/2022 9: 52 AM EST Plan of Treatment Health Maintenance Due Date Last Done Comments Adult Td,Tdap Booster 1952 LIPID PANEL 1952 DEPRESSION SCREENING 1964 SMOKING Hx and SMOKELESS TOBACCO SCREENING 1965 HEPATITIS C SCREENING 1970 MAMMOGRAM 1992 COLOGUARD 1997 COLONOSCOPY 1997 COLORECTAL CANCER SCREENING 1997 FIT TEST 1997 FOBT 1997 SIGMOIDOSCOPY 1997 VIRTUAL COLONOSCOPY 1997 ZOSTER VACCINES (1 of 2) 2002 OSTEOPOROSIS SCREENING INITI AL (ONE-TIME) 2017 INFLUENZA VACCINE (#1) 2025 10/09/2020 COVID-19 VACCINE (3 - 2024-2 6 season) 2025 07/01/2021, 01/20/2021 RSV VACCINE (1 - 1-dose 75+ series) 2027 PNEUMOCOCCAL VACCINES (50+ years) Completed 10/09/2020, 10/17/2017 HEPATITIS A VACCINES Aged Out No long er eligible based on patient's age to complete this topic HIB VACCINES Aged Out No longer eligi ble based on patient's age to complete this topic MENINGOCOCCAL VACCINES (ACWY) Aged Out No longer eligible based on patient's age to complete this topic MENINGOCOCCAL VACCINES (B) Aged Out N o longer eligible based on patient's age to complete this topic Medical Devices Not on file Insurance MEDICARE PART A & B [facility] MEDICARE PART A & B HEALTH MEDICARE PART A & B MEDICARE PART A & B [place] B [facility] MEDICARE PART A & B [facility] MEDIC[facility] PART A & B [facility] [place] [id number] MEDICARE PART A & B [facility] [place] [id number] Care Teams X Ray Technologist Relationship Specialty Start Date End Date Carlee Rodríguez MD PCP - General Internal Medicine 09/02/22 Additional Source Comments The information contained in this document represents components of the legal health record. It is not the complete legal health record.[facility]
--- OUTSIDE RECORDS SUMMARY | 2025-04-09 11:27 | XMS_ITS | Encounter Summary ---
Author Organization [facility], Address [address] [place] [address] Phone Care Team Providers Care Estimator And Drafter Supervisor Name Role Phone Natty Sequeira TECHNICAL INSTRUCTOR Primary Care Provider [phone] Reason for Visit * Reason Comments Med Refill Encounter Details Date Type Department Care Team (Late st Contact Info) Description 01/15/2020 Refill [facility] [address] [place] [address] Frank Krishnamurthy MD Social History [...] Visit [facility] [address] [place] [address] [place] [address] documented as of this encounter Visit Diagnoses Not on filedocumented in this encounter Care Teams Estimator And Drafter Supervisor Relationship Specialty Start Date End Date Natty Sequeira NP [address] [place] [address] PCP - General Nurse Practitioner 09/03/21 documented as of this encounter
== END 2025-04-09 10:08 | disposition home or self-care (01) ==
LOC: HO.HMCFM 09:08
PROVIDERS: PCP Internal Medicine; Visit Provider Internal Medicine
DX: Z09 Encounter for follow-up examination after completed treatment for conditions other than malignant neoplasm (principal)

== ENCOUNTER → 2025-04-09 09:07 | Outpatient (BNVA) | payer MEDICARE, MEDICAID, SELFPAY | PROVIDERS: PCP Internal Medicine; Visit Provider Internal Medicine | DX: Z09 Encounter for follow-up examination after completed treatment for conditions other than malignant neoplasm (principal); M47.812 Spondylosis without myelopathy or radiculopathy, cervical region; E11.9 Type 2 diabetes mellitus without complications | CPT/HCPCS: 99212 ==